=== PATIENT | female | born 1980 | race Caucasian/White ===

== ENCOUNTER → 2016-09-09 | Outpatient (CLI) | payer OTHER ==
[~2016-09-09] MED LIST: HMLI7525 SC; INSU1INJ SC; METF500T5 PO; PRENTAB26 PO
[2016-09-09 13:23] LABS: ESTIMATED AVERAGE GLUCOSE 128 mg/dl; HA1C FLAG Normal (Normal)
== END | disposition home or self-care (01) ==
LOC: C.LAB1850 11:11
PROVIDERS: ATTEND Internal Medicine Endocrinology, Diabetes & Metabolism
DX: O24.912 Unspecified diabetes mellitus in pregnancy, second trimester (principal)

== ENCOUNTER → 2016-10-12 | Outpatient (CLI) | payer OTHER | END | disposition home or self-care (01) | LOC: C.LABSPEC 15:02 | PROVIDERS: ATTEND Obstetrics & Gynecology | DX: Z34.03 Encounter for supervision of normal first pregnancy, third trimester (principal) ==

== ENCOUNTER 2016-10-21 20:07 | Inpatient (IN) | payer OTHER ==
[~2016-10-21] VITALS: Ht 165.1 cm; Wt 95.5 kg
[~2016-10-21 20:07] MED LIST changes: -HMLI7525 SC; -INSU1INJ SC
[2016-10-21] MEDS ORDERED: CALCIUM CARBONATE 500 MG CHEWABLE PO PRN (20:30)
[2016-10-21] MEDS ORDERED: BUTORPHANOL TARTRATE 1 MG/ML VIAL IV PRN (20:30)
[2016-10-21] MEDS ORDERED: DINOPROSTONE 10 MG INSERT PV ONE (20:30)
[2016-10-21 20:41] LABS: MEAN CELL VOLUME 90.9 fL (80-100); MEAN CORPUSCULAR HEMOGLOBIN 32.1 pg (25-34); MEAN CORPUSCULAR HGB CONC 35.3 g/dl (32-36); MEAN PLATELET VOLUME 10.6 fL (7.4-10.4); PLATELET COUNT 227 K/uL (130-400); RED BLOOD COUNT 3.96 M/uL (4.2-5.4); WHITE BLOOD COUNT 12.04 K/uL (4.8-10.8)
[2016-10-21] MEDS ORDERED: INSU1INJ SC (21:32)
[2016-10-21] MEDS ORDERED: HMLI7525 SC (21:32)
[2016-10-21 21:33] VITALS: Ht 165.1 cm; Wt 95.5 kg
[2016-10-21] MEDS ORDERED: INFLUENZA VIRUS QUAD VACCINE 0.5 ML SYR IM. ONE (22:45)
[2016-10-21] MEDS ORDERED: INFLUENZA ADMINISTRATION CHARGE ONE (22:45)
[2016-10-21] MEDS ORDERED: GLUCAGON FOR INJ 1 MG VIAL SQ PRN (23:00)
[2016-10-21] MEDS ORDERED: GLUCOSE 10 TABS/TUBE PO PRN (23:00)
[2016-10-21] MEDS ORDERED: GLUCOSE 40% GEL 15 GM TUBE PO PRN (23:00)
[2016-10-21] MEDS ORDERED: DEXTROSE 50% 50 ML SYR IV PRN (23:00)
[2016-10-21 23:35] LABS: BUN/CREATININE RATIO 12.4 (10-20); CALCIUM 8.5 mg/dl (8.5-10.1); CREATININE 0.67 mg/dl (0.60-1.20); MAGNESIUM 1.7 mg/dl (1.8-2.4); POTASSIUM 4.1 mmol/L (3.5-5.1)
[2016-10-22] MEDS ORDERED: MAGNESIUM SULFATE 1GM / D5W 1 GM in PREMIXED IN D5W 100 ML IV ONE (01:30)
--- NOTE | 2016-10-22 07:32 | INTERNAL MEDICINE CONSULTATION ---
DATE OF CONSULTATION: 10/22/2016 Patient seen at the request of Dr. Curry for medical management. Patient PCP is from [place]. HISTORY OF PRESENT ILLNESS: Medical history significant for DM2, on oral meds (currently on insulin for ), kidney stones, ongoing tobacco abuse. Patient currently admitted under OB service for induction of labor. PX currently 36 wks AOG . Px was seen at OB doctor's office yesterday. SBP 140s. No chest pain, no shortness of breath, no headache, nu unusual leg swelling. MEDICAL HISTORY: As above. Patient was previously on metformin until she found out that she was . She got started on home insulin preparations as per [place] [facility] [place] (Dr Herron). OPERATIONS: Urologic procedures, cholecystectomy. HOME MEDICATIONS: Include Humulin 70/30, Humalog Mix, vitamins. ALLERGIES: No known drug allergies. FAMILY HISTORY: Diabetes. PERSONAL AND SOCIAL HISTORY: few cigarettes a day. No chronic intake of alcoholic beverages. 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 REVIEW OF SYSTEMS: As per HPI, all other ROS negative. PHYSICAL EXAMINATION: VITAL SIGNS: Blood pressure was noted to 140/68, pulse 82, RR 18, temp 36.6, sats 98 on room air. GENERAL: Noted to be obese, comfortable, no respiratory distress. SKIN: normal HEENT: [place] palpebral conjunctivae. Dry mucosa. NECK: Short neck. LUNGS: Decreased breath sounds. HEART: RRR. ABDOMEN: Globular abdomen, nontender. EXTREMITIES: min LE edema noted. no tenderness NEUROLOGIC: No gross focality. LABORATORY DATA: Hemoglobin 12.7, hematocrit 36.8, white cells 12, platelets 272. Sodium 140, potassium 4.1, chloride 101, CO2 of 22, BUN 8, creatinine 0.6, glucose was noted to be 174. Hemoglobin A1c 08/2016 was 6.1. ASSESSMENT: 1. DM2 currently on home insulin px was on oral med prior to well controlled as of recent HgA1c. 2. gestational hypertension. SBP slightly elevated 3. ongoing tobacco abuse. RECOMMENDATIONS: ISS BG goal 140-180. Recommend Lantus over home mixed insulin prep for basal insulin defer eval/mx of gestational HTN to OB service Px counseled to stop smoking. DVT prophylaxis, SCDs Thank you very much for this consultation. Dr. Nur will follow the patient's progress. [facility]
[2016-10-22] MEDS ORDERED: MISOPROSTOLTAB 50 MCG TAB PO ONE ×2 (08:45→12:15)
[2016-10-22] MEDS ORDERED: PHARMACY GLYCEMIC MGMT CONSULT PRN (08:51)
[2016-10-22] MEDS: INSULIN ASPART 100 UNITS/ML 3 ML PEN SC SCH ×4 (09:05→22:11)
[2016-10-22] MEDS: INSULIN GLARGINE SOLOSTAR 100 UNITS/ML 3 ML PEN SC SCH (09:06)
--- NOTE | 2016-10-22 11:12 | Pharmacy Progress Note ---
Glycemic Control: Progress Nt Date of Service Oct 22, 2016. Scope Glycemic Pharmacist consulted by Dr Nur on 10/22/16 for glycemic control and to write orders per [facility] inpatient glycemic control protocol. Objective Accuchecks BSG (last 24hrs): Test 10/21/16 21:49 10/21/16 23:05 10/22/16 07:38 Bedside Glucose 149 mg/dl (70-90) 101 mg/dl (70-90) Random Glucose 174 mg/dl (70-99) Laboratory Data (last 24hrs) Test 10/21/16 20:31 10/21/16 23:05 White Blood Count 12.04 K/uL Anion Gap 11.0 mmol/L BUN/Creatinine Ratio 12.4 Blood Urea Nitrogen 8 mg/dl Creatinine 0.67 mg/dl Potassium Level 4.1 mmol/L Sodium Level 141 mmol/L Recent Pertinent Medications Outpatient Anti-diabetic Regimen (from JOHN Shipley) Pre-: * Metformin ER 500mg PO daily During : * 10 units of NovoLog with meals that contain carbohydrates * Humulin NPH at bedtime (dose unknown) * A1c = 6.1 % 09/09/16 The patient is currently receiving: * Basal insulin: Lantus 5 units every 24 hours * Correctional Insulin: NovoLog Correction per scale ACHS Goal Range: Low 140 mg/dL - High 180 mg/dL Correction Factor: 30 mg/dL/unit * Prandial insulin: Per carb ratio of 1 unit per 15 grams CHO consumed Assessment & Plan ASSESSMENT: * ADA & AACE recommend a goal blood sugar range 140-180 mg/dl for the majority of critically ill & non-critically ill patients. However, more stringent targets may be selected in individual cases. Specifically in the OB population euglycemia is crucial for the . Will utilize a lower goal range for Ms Werner. 10/22/16 * Pharmacy has been consult to help manage Ms Werner while she is admitted for induction of labor * History of T2DM with PO medications prior to . During , she was transitioned to a SQ insulin regimen. * Currently, BSGs are WNL at 101mg/dL this AM * Agree with Dr. Plascencia and hold mixed insulins while admitted as they can be difficult to titrate. * Insulin sensitivity tends to change during the labor and delivery process and typically the patient requires significantly less insulin during this acute setting. * Agree that we should be conservative in dosing Ms. Werner at this time and titrate regimen as data are collected. * Initially, Fabi was not ordered a carb ratio. Dr. Nur ordered a carb ratio and the order was executed in this fashion. Shortly thereafter, Dr. Plascencia removed the carb ratio. * NovoLog parameters per weight based calculator and follow PLAN FOR INPATIENT GLYCEMIC CONTROL: * Continue Lantus 5 units SQ q AM * add hold parameters to help prevent hypoglycemia * Continue NovoLog AC and HS * Goal range 80-120mg/dL * Correction factor: 45mg/dL/unit * Carb ratio: 1 unit per 15g of CHO * A1c - current * add to discharge instructions RECOMMENDATIONS FOR DISCHARGE: * will defer to OB-DATABASE MARKETING ANALYST service if SQ insulin vs metformin vs other should be continued after delivery * Please note that the plan above was derived based on current level of insulin resistance and hospital stress. These recommendations are appropriate for inpatient admission only. Plan of care upon discharge will need to be reassessed to avoid potential outpatient hypo/hyperglycemia. Thank you.
[2016-10-22] MEDS ORDERED: DINOPROSTONE 10 MG INSERT PV ONE (17:45)
--- NOTE | 2016-10-22 19:55 | Progress Note ---
Internal Med Progress Note Date of Service: Oct 22, 2016. Provider Documentation: SUBJECTIVE: Patient is seen and examined at bedside. She denies any chest pain, SOB, dizziness. Currently on monitor. Comfortably lying in bed. OBJECTIVE: Vital Signs-as noted below Physical Exam: General Appearance:Moderately built and nourished, no apparent distress Head: normocephalic, Atraumatic Eyes: normal inspection, EOMI, PERRLA Neck: supple, Trachea midline Respiratory/Chest: Normal breath sounds, CTA, No accessory muscle use Cardiovascular: S1, S2, No murmur Abdomen/GI:Soft, Non tender, + , Bowel sounds present Extremities/Musculoskelatal:normal inspection, trace edema Neurologic/Psych:AAOX3, grossly no focal neurological deficits Skin: normal color, warm Lab data as noted below. ASSESSMENT & PLAN: DM II currently on home insulin since being Patient was on Metformin prior to Last A1C: 6.1 in Aug 2016 Continue ISS, lantus BG goal 140-180. Accu checks Appreciate pharmacy glycemic management Gestational hypertension: Stable Continue to monitor Tobacco abuse: residence counselor to quit smoking : Management per Primary team DVT px: SCDs Lab Results: Results Past 24 Hours Test 10/21/16 20:31 10/21/16 21:49 10/21/16 23:05 10/22/16 07:38 Range/Units White Blood Count 12.04 4.8-10.8 K/uL Red Blood Count 3.96 4.2-5.4 M/uL Hemoglobin 12.7 12.0-16.0 g/dL Hematocrit 36.0 37-47 % Mean Corpuscular Volume 90.9 80-100 fL Mean Corpuscular Hemoglobin 32.1 25-34 pg Mean Corpuscular Hemoglobin Concent 35.3 32-36 g/dl RDW Standard Deviation 45.5 36.4-46.3 fL RDW Coefficient of Variation 13.8 11.5-14.5 % Platelet Count 227 130-400 K/uL Mean Platelet Volume 10.6 7.4-10.4 fL Bedside Glucose 149 101 70-90 mg/dl Sodium Level 141 136-145 mmol/L Potassium Level 4.1 3.5-5.1 mmol/L Chloride Level 107 98-107 mmol/L Carbon Dioxide Level 23 21-32 mmol/L Anion Gap 11.0 3-11 mmol/L Blood Urea Nitrogen 8 7-18 mg/dl Creatinine 0.67 0.60-1.20 mg/dl Est Creatinine Clear Calc Drug Dose 135.2 ml/min Estimated GFR () 132.9 Estimated GFR (Non- 114.7 BUN/Creatinine Ratio 12.4 10-20 Random Glucose 174 70-99 mg/dl Calcium Level 8.5 8.5-10.1 mg/dl Magnesium Level 1.7 1.8-2.4 mg/dl Test 10/22/16 11:50 10/22/16 17:21 Range/Units Bedside Glucose 111 125 70-90 mg/dl
[2016-10-23] MEDS: INSULIN GLARGINE SOLOSTAR 100 UNITS/ML 3 ML PEN SC SCH (08:00)
[2016-10-23] MEDS ORDERED: MISOPROSTOLTAB 50 MCG TAB PO ONE ×3 (08:00→15:15)
[2016-10-23] MEDS: INSULIN ASPART 100 UNITS/ML 3 ML PEN SC SCH ×4 (08:50→21:42)
--- NOTE | 2016-10-23 13:53 | Pharmacy Progress Note ---
Glycemic: Assessment & Plan Date of Service Oct 23, 2016. Assessment & Plan Pt undergoing induction of labor. She has minimal insulin needs so far. BSGs ranging 98 - 125 mg/dl over the past 24hrs. Will adjust BSG goal range from 80- 120 mg/dl to 110 - 140 mg/dl to avoid overcorrecting BSGs and inducing hypoglycemia. * Basal insulin: Lantus 5 units every 24 hours; Hold for BSG below 110 mg/dl * Correctional Insulin: Novolog Correction per scale ACHS Goal Range: Low 110 mg/dL - High 140 mg/dL Correction Factor: 45 mg/dL/unit * Prandial insulin: Per carb ratio of 1 unit per 15 grams CHO consumed BSGs continue to improve, no changes needed to inpatient regimen at this time. Pharmacy will continue to monitor patient daily and write orders per [facility] inpatient glycemic control protocol. Thanks. * Please note that the plan above was derived based on current level of insulin resistance and hospital stress. These recommendations are appropriate for inpatient admission only. Plan of care upon discharge will need to be reassessed to avoid potential outpatient hypo/hyperglycemia.
--- NOTE | 2016-10-23 19:03 | Progress Note ---
Internal Med Progress Note Date of Service: Oct 23, 2016. Provider Documentation: SUBJECTIVE: Patient is seen and examined at bedside. Feels well. Offers no complaints. Denies any chest pain, SOB, dizziness. OBJECTIVE: Vital Signs-as noted below Physical Exam: General Appearance:Moderately built and nourished, no apparent distress Head: normocephalic, Atraumatic Eyes: normal inspection, EOMI, PERRLA Neck: supple, Trachea midline Respiratory/Chest: Normal breath sounds, CTA, No accessory muscle use Cardiovascular: S1, S2, No murmur Abdomen/GI:Soft, Non tender, + , Bowel sounds present Extremities/Musculoskelatal:normal inspection, trace edema Neurologic/Psych:AAOX3, grossly no focal neurological deficits Skin: normal color, warm Lab data as noted below. ASSESSMENT & PLAN: DM II currently on home insulin since being Patient was on Metformin prior to Last A1C: 6.1 in Aug 2016 Continue ISS, lantus BG goal 140-180. Accu checks Appreciate pharmacy glycemic management Continue current regimen Gestational hypertension: Stable Continue to monitor Tobacco abuse: child welfare counselor to quit smoking : Management per Primary team DVT px: SCDs Lab Results: Results Past 24 Hours Test 10/22/16 22:03 10/23/16 08:23 10/23/16 12:13 10/23/16 17:11 Range/Units Bedside Glucose 99 98 101 118 70-90 mg/dl
[2016-10-23] MEDS ORDERED: LACTATED RINGER'S 1000ML 500 ML IV PRN (20:24)
[2016-10-23] MEDS ORDERED: OXYTOCIN 30 UNITS/500ML NSS IV PRN (20:30)
[2016-10-23] MEDS ORDERED: NURSING VERBAL MED ORDER ONE (21:30)
[2016-10-23] MEDS: LACTATED RINGER'S 1000ML 1,000 ML IV SCH (21:35)
[2016-10-24] VITALS (19 sets, daily range): BP systolic 113–136; BP diastolic 76–86; PULSE 85–114; TEMP 36.7–37.2; O2SAT 90–100
[2016-10-24] MEDS ORDERED: BUPIVACAINE 0.25% 30 ML VIAL ONE (00:32)
[2016-10-24] MEDS ORDERED: FENTANYL 2MCG/ML ROPIV 1.25MG/ML 100ML BAG EPI ONE (00:33)
[2016-10-24] MEDS ORDERED: FENTANYL CITRATE INJ 50 MCG/1 ML 2 ML VIAL ONE ×2 (00:33→05:32)
[2016-10-24] MEDS ORDERED: EpHEDrine SULFATE INJ 50 MG/ML AMP ONE ×2 (00:33→06:30)
[2016-10-24] MEDS ORDERED: LACTATED RINGER'S 1000ML 500 ML IV PRN ×2 (01:21→06:58)
[2016-10-24] MEDS ORDERED: NALOXONE HCL INJ 0.4 MG/1 ML VIAL/CARP IV PRN (01:30)
[2016-10-24] MEDS ORDERED: FENTANYL 2MCG/ML ROPIV 1.25MG/ML 100ML BAG EPI PRN (01:30)
[2016-10-24] MEDS ORDERED: ONDANSETRON INJ 2 MG/ML 2 ML VIAL IV PRN ×2 (01:30→07:00)
[2016-10-24] MEDS ORDERED: NALBUPHINE HCL INJ 10 MG/ML AMP IV PRN ×2 (01:30→07:00)
[2016-10-24] MEDS ORDERED: DiphenhydrAMINE HCL 50 MG/ML VIAL IV PRN ×2 (01:30→07:00)
[2016-10-24] MEDS ORDERED: EpHEDrine SULFATE INJ 50 MG/ML AMP IV PRN ×2 (01:30→07:00)
[2016-10-24] MEDS ORDERED: CEFOXITIN IV 2,000 MG in DEXTROSE 5% 50ML 50 ML IV STA (04:14)
[2016-10-24] MEDS ORDERED: CITRIC ACID/SODIUM CITRATE 15 ML UDC PO ONE (04:15)
[2016-10-24] MEDS ORDERED: OXYTOCIN INJ 10 UNITS/ML VIAL ONE (05:32)
[2016-10-24] MEDS ORDERED: ONDANSETRON INJ 2 MG/ML 2 ML VIAL ONE (05:32)
[2016-10-24] MEDS ORDERED: LIDOCAINE/EPINEPHRINE 2% 1:200,000 20 ML SDV ONE (05:32)
[2016-10-24] MEDS ORDERED: MoRPHine SULFATE PF 1 MG/ML 10 ML AMP/VIAL ONE (05:32)
--- NOTE | 2016-10-24 06:11 | HISTORY & PHYSICAL EXAMINATION ---
DATE OF ADMISSION: 10/24/2016 CHIEF COMPLAINT: Gestational diabetes, toxemia of , intrauterine at 37 weeks' and 2 days. HISTORY OF PRESENT ILLNESS: The patient is a 36-year-old, 1, para 0. is complicated by gestational diabetes, smoking and toxemia. Due date is 11/12/2016, well-dated with an early first trimester ultrasound. She has been on insulin for control of gestational diabetes. Basically, she was brought in for induction at 37 weeks' with toxemia .Toxemia was manifested by several elevated blood pressures in the office, by more than 24 hours. She also started to develop proteinuria and she gained about 5 pounds of weight in one day due to swelling. When she was brought in, she had a very unfavorable cervix. She also has a history of cryosurgery. She was given a Cervidil tape for 12 hours, that was removed. She was given 2 doses of oral Cytotec 50 mcg. She was given another Cervidil tape for another 12 hours, followed by another 2 doses of oral Cytotec. We finally got her up to a centimeter, ruptured her membranes, fluid was clear. We then augmented her with IV Pitocin and basically she had an arrest of labor for over 4 hours with failure to dilate and failure of the head to descend. She had a diagnosis of cephalopelvic disproportion with failed induction. ALLERGIES: She has no known drug allergies. PAST SURGICAL HISTORY: She has had multiple kidney stones removed. She had wisdom teeth removed. She had her gallbladder removed. MEDICAL HISTORY: She has gestational diabetes, toxemia, smoker. SOCIAL HISTORY: Smoker, 3-4 cigarettes a day since she was a teenager. No history of alcohol intake. 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 FAMILY HISTORY: Mom is 62, diabetes, high blood pressure. Father 63, in good health. One brother in good health, high blood pressure. REVIEW OF SYSTEMS: HEAD: No symptoms of frequent or severe headaches. EYES: No symptoms of blurred vision or double vision. EARS: No symptoms of frequent ear infections, difficulty hearing. PHYSICAL EXAMINATION: GENERAL: Well developed, well-nourished 36-year-old white female, alert, oriented x3 and cooperative, in no acute distress, appears stated age. EYES: Conjunctivae are pink. Sclerae white. No evidence of jaundice. EARS: Had normal light reflex bilaterally. NOSE: Had normal mucosa. Septum is midline. There were no polyps. THROAT: No erythema or evidence of infection. Teeth are in good state of repair. HEAD: Normocephalic, normal distribution of hair. NECK: Supple. Trachea midline. Thyroid is not enlarged. There is no adenopathy appreciated. Both carotids are of good intensity. CHEST: Clear to auscultation and percussion. No wheezes, rales or rhonchi appreciated. HEART: Regular rhythm. S1, S2 were normal. ABDOMEN: Revealed a term size fetus, consistent with a 37 weeks' gestational size . No CVA tenderness. MUSCULOSKELETAL: No calf tenderness. PELVIC: Revealed a vertex presentation, -2 station. Cervix 90-100% effaced, 2-3 cm dilated. IMPRESSION: History of a cholecystectomy, history of removal of wisdom teeth, history of kidney stones, gestational diabetes, toxemia and smoking. MTDD
[2016-10-24] MEDS ORDERED: BENZOCAINE 20% AER SPR 82.5 GM CAN EXT PRN (06:45)
[2016-10-24] MEDS ORDERED: LANOLIN OINT EXT PRN ×2 (06:45)
[2016-10-24] MEDS ORDERED: HYDROCORTISONE ACETATE 25 MG SUPP PR PRN (06:45)
[2016-10-24] MEDS ORDERED: SENNA 8.6 MG TAB PO PRN (06:45)
[2016-10-24] MEDS ORDERED: MAGNESIUM HYDROXIDE SUSP 30 ML UDC PO PRN (06:45)
[2016-10-24] MEDS ORDERED: SUPERCREAM 0.870 % 15GM JAR EXT PRN (06:45)
[2016-10-24] MEDS ORDERED: OXYCODONE/ACETAMINOPHEN 5-325 TAB PO PRN (06:45)
[2016-10-24] MEDS ORDERED: NALOXONE HCL INJ 0.08 MG in SYRINGE 1.8 ML IV PRN (06:58)
[2016-10-24] MEDS ORDERED: SODIUM CHLORIDE 0.9% 1000ML 1,000 ML IV PRN (06:58)
[2016-10-24] MEDS ORDERED: NALOXONE HCL 0.4 MG/1 ML VIAL/CARP IV PRN (07:00)
[2016-10-24] MEDS ORDERED: NO NARCOTICS OR SEDATIVES SCH (07:00)
[2016-10-24] MEDS ORDERED: MEPERIDINE HCL 25 MG/ML CARP IV PRN (07:00)
[2016-10-24] MEDS ORDERED: MoRPHine SULFATE 2 MG/ML CARP IV PRN (07:00)
[2016-10-24] MEDS ORDERED: MoRPHine SULFATE PF 1 MG/ML 10 ML AMP/VIAL EPI PRN (07:00)
[2016-10-24] MEDS ORDERED: PROMETHAZINE HCL INJ 25 MG in SODIUM CHLORIDE 0.9% 50ML 50 ML IV PRN (07:00)
--- NOTE | 2016-10-24 07:04 | Anesthesiology Progress Note ---
Anesthesia Post Op Note Date & Time Oct 24, 2016 at 07:02 Vital Signs Pain Intensity: 0.0 Notes Mental Status: alert / awake / arousable, participated in evaluation Pt Amnestic to Procedure: Yes Nausea / Vomiting: adequately controlled Pain: adequately controlled Airway Patency, RR, SpO2: stable & adequate BP & HR: stable & adequate Hydration State: stable & adequate Neuraxial Anesthesia: was administered, sensory block is resolving Anesthetic Complications: no major complications apparent Pt had C/S for term w/ failed induction. I placed an epidural catheter several hours prior which I used for the C/S. Her anesthetic course was uneventful. I gave morphine via the epidural catheter before pulling it at the end of the case. Post-op vitals: BP 113/51, HR 105, RR 18, SpO2 96% on RA, T 36.7.
--- NOTE | 2016-10-24 07:05 | Anesthesia Procedure Note ---
Anesthesia Epidural Removal Nt Date & Time Oct 24, 2016 at 07:04 Vital Signs Pain Intensity: 0.0 Notes Mental Status: alert / awake / arousable, participated in evaluation Nausea / Vomiting: adequately controlled Pain: adequately controlled Airway Patency, RR, SpO2: stable & adequate BP & HR: stable & adequate Hydration State: stable & adequate Neuraxial Anesthesia: was administered, sensory block is resolving Anesthetic Complications: no major complications apparent, pt satisfied with anesthetic care Epidural: removed without complications, with tip intact
[2016-10-24] MEDS ORDERED: DEXAMETHASONE SOD INJ 4 MG/ML VIAL ONE (07:07)
[2016-10-24] MEDS: LACTATED RINGER'S 1000ML 1,000 ML IV SCH (07:30)
[2016-10-24] MEDS: INSULIN GLARGINE SOLOSTAR 100 UNITS/ML 3 ML PEN SC SCH (07:33)
[2016-10-24] MEDS: INSULIN ASPART 100 UNITS/ML 3 ML PEN SC SCH ×4 (07:36→22:00)
[2016-10-24] MEDS: OXYTOCIN INJ 20 UNITS in LACTATED RINGER'S 1000ML 1,000 ML IV SCH ×2 (07:53→16:46)
[2016-10-24] MEDS ORDERED: DIPHTHERIA/TETANUS/PERTUSSIS 0.5 ML SYR/VIAL IM. ONE (09:00)
[2016-10-24] MEDS: SIMETHICONE 80 MG CHEW PO SCH ×4 (09:19→20:44)
--- NOTE | 2016-10-24 10:16 | OPERATIVE REPORT ---
DATE OF OPERATION: 10/24/2016 INDICATIONS FOR SURGERY: Toxemia of , diabetes, failed induction. POSTOPERATIVE DIAGNOSIS: Same, delivered a live male . PROCEDURE: Primary low segment section. SURGEON: Dr. Curry. YARN HANDLER: Dr. Montaño. ESTIMATED BLOOD LOSS: 500 mL. ANESTHESIA: Epidural. OPERATIVE FINDINGS AND PROCEDURE: The patient was brought to the OR table. Compression stockings were applied and a Ordoñez catheter had been inserted aseptically and connected to gravity drainage. Anesthesia was topped off and found to be adequate. Lower abdomen was painted with an alcohol based sterilizing solution, draped in usual sterile fashion. After adequacy of the anesthesia was found to be good, Pfannenstiel incision was made and carried down to the anterior fascia by sharp dissection. Hemostasis was secured by electrocauterization. Fascia was incised transversely, from underlying muscle by blunt and sharp dissection. Recti muscles were in the midline exposing the peritoneum which was carefully raised and entered. Lower uterine segment was exposed. An incision was made above the vesicouterine fold and the uterine cavity was entered bluntly with a blunt-tipped scissors. The defect was extended laterally with 2 fingers. Vectis retractor was applied to the head and with fundal pressure the head was delivered, body was delivered. The infant breathed and cried spontaneously, was attended to by the rn prior authorization, Dr. Alvarado present and scrubbed at the time of delivery. Cord was clamped and cut. Cord blood was taken. Placenta was removed manually. Uterine cavity was cleansed with a clean sponge. Ten units of Pitocin was injected into the myometrium. Myometrium was approximated in 2 layers, a deep layer of heavy chromic, which approximated the myometrial layer and created good hemostasis. Then a second layer of heavy Vicryl over that which approximated the fascial layer and then I used 3 interrupted [id number] sutures of heavy Vicryl to complete the hemostatic process. Following this, the peritoneal edges were restored with continuous 3-0 chromic. This restored the integrity of the vesicouterine fold. The pelvis was cleansed of all blood clots and debris. Packs were removed. Careful anatomical approximation of the anterior abdominal wall was performed. Peritoneum was closed with a continuous chromic gut suture. Recti muscles were approximated with interrupted [id number] suture of chromic. The fascia was closed with continuous interlocking suture of Vicryl on each side, tied in the midline. SubQ was approximated with continuous plain. The skin edges were approximated with staple clips. I attest to the content of the Intraoperative Record and any orders documented therein. Any exceptio ns are noted below.
[2016-10-24] MEDS: FERROUS SULFATE 325 MG TAB PO SCH (10:56)
[2016-10-24] MEDS: KETOROLAC TROMETHAMINE 30 MG/ML VIAL IV. PRN ×2 (10:57→21:25)
[2016-10-24] MEDS: PRENATAL VITAMIN TAB PO SCH (11:15)
[2016-10-24] MEDS: DOCUSATE SODIUM 100 MG CAP PO SCH ×2 (11:16→20:44)
--- NOTE | 2016-10-24 14:06 | Pharmacy Progress Note ---
Glycemic: Assessment & Plan Date of Service Oct 24, 2016. Assessment & Plan Pt is s/p today, POD0. BSGs ranging 106 - 150 mg/dl over the past 24hrs. BSGs are well-controlled so far this admission. She was given Decadron 8mg IV x 1 this morning, however, BSGs have not spiked in response. No changes warranted. CONTINUE: * Basal insulin: Lantus 5 units qAM; hold for BSG below 110 mg/dl * Correctional Insulin: Novolog Correction per scale ACHS Goal Range: Low 110 mg/dL - High 140 mg/dL Correction Factor: 45 mg/dL/unit * Prandial insulin: Per carb ratio of 1 unit per 15 grams CHO consumed BSGs continue to improve, no changes needed to inpatient regimen at this time. Pharmacy will continue to monitor patient daily and write orders per [facility] inpatient glycemic control protocol. Thanks. * Please note that the plan above was derived based on current level of insulin resistance and hospital stress. These recommendations are appropriate for inpatient admission only. Plan of care upon discharge will need to be reassessed to avoid potential outpatient hypo/hyperglycemia.
--- NOTE | 2016-10-24 16:26 | Progress Note ---
Internal Med Progress Note Date of Service: Oct 24, 2016. Provider Documentation: SUBJECTIVE: Patient is seen and examined at bedside. Patient had today. Feels well. Offers no complaints. Denies any chest pain, SOB, dizziness. OBJECTIVE: Vital Signs-as noted below Physical Exam: General Appearance:Moderately built and nourished, no apparent distress Head: normocephalic, Atraumatic Eyes: normal inspection, EOMI, PERRLA Neck: supple, Trachea midline Respiratory/Chest: Normal breath sounds, CTA, No accessory muscle use Cardiovascular: S1, S2, No murmur Abdomen/GI:Soft, Non tender, Bowel sounds present Extremities/Musculoskelatal:normal inspection, trace edema Neurologic/Psych:AAOX3, grossly no focal neurological deficits Skin: normal color, warm Lab data as noted below. ASSESSMENT & PLAN: DM II currently on home insulin since being Patient was on Metformin prior to Last A1C: 6.1 in Aug 2016 Continue ISS, lantus BG goal 140-180. Accu checks Appreciate pharmacy glycemic management Continue current regimen BS levels slightly elevated secondary to decadron given today Gestational hypertension: Stable Continue to monitor Tobacco abuse: certified genetic counselor to quit smoking : Management per Primary team DVT px: SCDs Vital Signs: Date Time Temp Pulse Resp B/P Pulse Ox O2 Delivery O2 Flow Rate FiO2 10/24/16 12:50 20 100 10/24/16 12:35 99 Nasal Cannula 2.0 10/24/16 12:30 90 Room Air 10/24/16 11:50 20 96 10/24/16 11:50 36.8 96 20 120/78 96 Room Air 10/24/16 10:50 20 97 10/24/16 10:50 36.7 114 20 125/84 10/24/16 09:50 20 96 10/24/16 09:50 96 Room Air 10/24/16 09:50 37.2 111 20 136/86 10/24/16 09:50 96 Room Air Lab Results: Results Past 24 Hours Test 10/23/16 17:11 10/23/16 19:10 10/23/16 21:41 10/24/16 07:26 Range/Units Bedside Glucose 118 147 106 148 70-90 mg/dl Test 10/24/16 11:43 Range/Units Bedside Glucose 150 70-90 mg/dl
[2016-10-25] VITALS: BP 111/71; PULSE 79; TEMP 36.7; O2SAT 98
[2016-10-25 00:45] VITALS: O2SAT 97
[2016-10-25] MEDS ORDERED: KETOROLAC TROMETHAMINE 30 MG/ML VIAL IV. PRN (01:00)
[2016-10-25] MEDS ORDERED: DiphenhydrAMINE HCL 50 MG/ML VIAL IV PRN (01:00)
[2016-10-25] MEDS ORDERED: DC INTRASPINAL MORPHINE ONE (01:00)
[2016-10-25] MEDS ORDERED: ONDANSETRON INJ 2 MG/ML 2 ML VIAL IV PRN (01:00)
[2016-10-25] MEDS ORDERED: MEPERIDINE HCL 50 MG/ML CARP IV PRN (01:00)
[2016-10-25] MEDS ORDERED: MEPERIDINE HCL 75 MG/ML CARP IV PRN (01:00)
[2016-10-25] MEDS ORDERED: ZOLPIDEM TARTRATE 5 MG TAB PO PRN (01:00)
[2016-10-25] MEDS: OXYTOCIN INJ 20 UNITS in LACTATED RINGER'S 1000ML 1,000 ML IV SCH (03:26)
[2016-10-25 04:30] VITALS: BP 111/77; PULSE 84; TEMP 36.7; O2SAT 98
[2016-10-25] MEDS: IBUPROFEN 600 MG TAB PO PRN ×5 (05:52→22:03)
[2016-10-25 06:01] LABS: BASO % 0.3 %; BASO ABS # 0.03 K/uL (0-0.2); COMPLETE YES; EOS % 0.5 %; HEMATOCRIT 27.9 % (37-47); IG% 0.5 %; LYMPH % 20.2 %; LYMPH ABS # 2.24 K/uL (1.2-3.4); MEAN CELL VOLUME 91.2 fL (80-100); MEAN CORPUSCULAR HEMOGLOBIN 31.4 pg (25-34); MEAN CORPUSCULAR HGB CONC 34.4 g/dl (32-36); MEAN PLATELET VOLUME 9.9 fL (7.4-10.4); MONO % 7.7 %; NEUT % 70.8 %; PLATELET COUNT 167 K/uL (130-400); RED BLOOD COUNT 3.06 M/uL (4.2-5.4); WHITE BLOOD COUNT 11.11 K/uL (4.8-10.8)
[2016-10-25 08:20] VITALS: BP 126/78; O2SAT 98
--- NOTE | 2016-10-25 09:02 | Progress Note ---
Subjective Oct 25, 2016. Subjective conversation w/ patient Ambulation: ambulating normally Voiding: no voiding problems Passing Gas: Yes Diet Tolerance: Regular Diet Lochia: Small Feeding Type: Breast Feeding Review of Systems Constitutional: + fever Objective Vital Signs Date Time Temp Pulse Resp B/P Pulse Ox O2 Delivery O2 Flow Rate FiO2 10/25/16 04:30 36.7 84 18 111/77 98 Room Air 10/25/16 00:45 18 97 10/25/16 00:00 98 Room Air 10/25/16 00:00 36.7 79 18 111/71 98 Room Air 10/24/16 23:45 18 98 10/24/16 22:45 18 98 10/24/16 21:45 18 98 10/24/16 20:45 18 96 10/24/16 19:45 36.7 85 16 123/82 96 Room Air 10/24/16 19:45 16 96 10/24/16 18:51 16 98 10/24/16 17:50 20 97 10/24/16 16:50 20 99 10/24/16 16:00 37.0 88 20 113/76 97 Room Air 10/24/16 16:00 97 Room Air 10/24/16 15:50 24 97 10/24/16 14:50 20 98 10/24/16 13:50 20 98 10/24/16 13:30 98 Room Air 10/24/16 12:50 20 100 10/24/16 12:35 99 Nasal Cannula 2.0 10/24/16 12:30 90 Room Air 10/24/16 11:50 20 96 10/24/16 11:50 36.8 96 20 120/78 96 Room Air 10/24/16 10:50 20 97 10/24/16 10:50 36.7 114 20 125/84 10/24/16 09:50 20 96 10/24/16 09:50 96 Room Air 10/24/16 09:50 37.2 111 20 136/86 10/24/16 09:50 96 Room Air Physical Exam General Appearance: WELL-APPEARING Respiratory/Chest: lungs clear Abdomen: normal bowel sounds, non tender Fundus: Firm, Non-Tender Incision Description: Clean, Dry & Intact Extremities: no pedal edema, no calf tenderness Laboratory Results Last 24 Hours Test 10/24/16 11:43 10/24/16 16:37 10/24/16 22:18 10/25/16 05:43 Bedside Glucose 150 mg/dl 154 mg/dl 74 mg/dl White Blood Count 11.11 K/uL Red Blood Count 3.06 M/uL Hemoglobin 9.6 g/dL Hematocrit 27.9 % Mean Corpuscular Volume 91.2 fL Mean Corpuscular Hemoglobin 31.4 pg Mean Corpuscular Hemoglobin Concent 34.4 g/dl Platelet Count 167 K/uL Mean Platelet Volume 9.9 fL Neutrophils (%) (Auto) 70.8 % Lymphocytes (%) (Auto) 20.2 % Monocytes (%) (Auto) 7.7 % Eosinophils (%) (Auto) 0.5 % Basophils (%) (Auto) 0.3 % Neutrophils # (Auto) 7.88 K/uL Lymphocytes # (Auto) 2.24 K/uL Monocytes # (Auto) 0.85 K/uL Eosinophils # (Auto) 0.06 K/uL Basophils # (Auto) 0.03 K/uL RDW Standard Deviation 47.0 fL RDW Coefficient of Variation 14.2 % Immature Granulocyte % (Auto) 0.5 % Immature Granulocyte # (Auto) 0.05 K/uL Test 10/25/16 08:08 Bedside Glucose 82 mg/dl Assessment and Plan Problem List Medical Problems: (1) Right flank pain Status: Acute Post-Op Day#: 1 Continue Routine Care: bandage removed
[2016-10-25] MEDS: INSULIN ASPART 100 UNITS/ML 3 ML PEN SC SCH ×4 (09:06→22:03)
[2016-10-25] MEDS: INSULIN GLARGINE SOLOSTAR 100 UNITS/ML 3 ML PEN SC SCH (09:08)
[2016-10-25] MEDS: PRENATAL VITAMIN TAB PO SCH (09:12)
[2016-10-25] MEDS: SIMETHICONE 80 MG CHEW PO SCH ×4 (09:12→19:40)
[2016-10-25] MEDS: FERROUS SULFATE 325 MG TAB PO SCH (09:12)
[2016-10-25] MEDS: DOCUSATE SODIUM 100 MG CAP PO SCH ×2 (09:12→19:40)
[2016-10-25] MEDS: OXYCODONE/ACETAMINOPHEN 5-325 TAB PO PRN ×4 (09:49→22:03)
--- NOTE | 2016-10-25 13:44 | Pharmacy Progress Note ---
Glycemic: Assessment & Plan Date of Service Oct 25, 2016. Assessment & Plan * BSGs ranging 79 - 154 mg/dl over the past 24hrs. * POD1, . Insulin sensitivity has improved s/p delivery. * Pt was given Lantus this morning despite parameter to hold dose if BSG below 110 mg/dl. Lunch BSG now 79 mg/dl. Will increase threshold for Lantus hold parameter-- see below. * Also, remove Novolog CR. Will raise BSG goal range to avoid overcorrecting of BSGs. PLAN FOR INPATIENT GLYCEMIC REGIMEN: * Basal insulin: Lantus 5 units qAM, hold for BSG below 140 mg/dl * Correctional Insulin: Novolog Correction per scale ACHS Goal Range: Low 120 mg/dL - High 160 mg/dL Correction Factor: 45 mg/dL/unit * Prandial insulin: NONE Pharmacy will continue to monitor patient daily and write orders per [facility] inpatient glycemic control protocol. Thanks. * Please note that the plan above was derived based on current level of insulin resistance and hospital stress. These recommendations are appropriate for inpatient admission only. Plan of care upon discharge will need to be reassessed to avoid potential outpatient hypo/hyperglycemia.
[2016-10-25 16:25] VITALS: BP 133/83; PULSE 73; TEMP 36.9; O2SAT 99
--- NOTE | 2016-10-25 18:21 | Progress Note ---
Internal Med Progress Note Date of Service: Oct 25, 2016. Provider Documentation: SUBJECTIVE: Patient is seen and examined at bedside. Doing well. Family at bedside. Blood surgar levels low today but patient asymptomatic. Denies any chest pain, SOB, dizziness. OBJECTIVE: Vital Signs-as noted below Physical Exam: General Appearance:Moderately built and nourished, no apparent distress Head: normocephalic, Atraumatic Eyes: normal inspection, EOMI, PERRLA Neck: supple, Trachea midline Respiratory/Chest: Normal breath sounds, CTA, No accessory muscle use Cardiovascular: S1, S2, No murmur Abdomen/GI:Soft, Non tender, Bowel sounds present Extremities/Musculoskelatal:normal inspection, trace edema Neurologic/Psych:AAOX3, grossly no focal neurological deficits Skin: normal color, warm Lab data as noted below. ASSESSMENT & PLAN: DM II currently on home insulin since being Patient was on Metformin prior to Last A1C: 6.1 in Aug 2016 Continue ISS DC Lantus BG goal 140-180. Accu checks Appreciate pharmacy glycemic management Gestational hypertension: Stable Continue to monitor Tobacco abuse: claims counsel to quit smoking : Management per Primary team DVT px: SCDs Vital Signs: Date Time Temp Pulse Resp B/P Pulse Ox O2 Delivery O2 Flow Rate FiO2 10/25/16 16:25 36.9 73 18 133/83 99 Room Air 10/25/16 16:25 99 Room Air 10/25/16 08:20 98 Room Air 10/25/16 08:20 18 126/78 98 Room Air 10/25/16 04:30 36.7 84 18 111/77 98 Room Air 10/25/16 00:45 18 97 10/25/16 00:00 98 Room Air 10/25/16 00:00 36.7 79 18 111/71 98 Room Air 10/24/16 23:45 18 98 10/24/16 22:45 18 98 10/24/16 21:45 18 98 10/24/16 20:45 18 96 10/24/16 19:45 36.7 85 16 123/82 96 Room Air 10/24/16 19:45 16 96 10/24/16 18:51 16 98 Lab Results: Results Past 24 Hours Test 10/24/16 22:18 10/25/16 05:43 10/25/16 08:08 10/25/16 12:16 Range/Units Bedside Glucose 74 82 79 70-90 mg/dl White Blood Count 11.11 4.8-10.8 K/uL Red Blood Count 3.06 4.2-5.4 M/uL Hemoglobin 9.6 12.0-16.0 g/dL Hematocrit 27.9 37-47 % Mean Corpuscular Volume 91.2 80-100 fL Mean Corpuscular Hemoglobin 31.4 25-34 pg Mean Corpuscular Hemoglobin Concent 34.4 32-36 g/dl Platelet Count 167 130-400 K/uL Mean Platelet Volume 9.9 7.4-10.4 fL Neutrophils (%) (Auto) 70.8 % Lymphocytes (%) (Auto) 20.2 % Monocytes (%) (Auto) 7.7 % Eosinophils (%) (Auto) 0.5 % Basophils (%) (Auto) 0.3 % Neutrophils # (Auto) 7.88 1.4-6.5 K/uL Lymphocytes # (Auto) 2.24 1.2-3.4 K/uL Monocytes # (Auto) 0.85 0.11-0.59 K/uL Eosinophils # (Auto) 0.06 0-0.5 K/uL Basophils # (Auto) 0.03 0-0.2 K/uL RDW Standard Deviation 47.0 36.4-46.3 fL RDW Coefficient of Variation 14.2 11.5-14.5 % Immature Granulocyte % (Auto) 0.5 % Immature Granulocyte # (Auto) 0.05 0.00-0.02 K/uL Test 10/25/16 17:10 Range/Units Bedside Glucose 80 70-90 mg/dl
[2016-10-25] MEDS ORDERED: BISACODYL 5 MG TABEC ONE (19:36)
[2016-10-25] MEDS ORDERED: BISACODYL 5 MG TABEC PO ONE (22:00)
[2016-10-26] MEDS: IBUPROFEN 600 MG TAB PO PRN ×5 (02:55→21:01)
[2016-10-26] MEDS: OXYCODONE/ACETAMINOPHEN 5-325 TAB PO PRN ×5 (02:56→21:02)
[2016-10-26] MEDS ORDERED: BISACODYL 10 MG SUPP PR PRN (06:45)
[2016-10-26 07:00] VITALS: BP 133/89; PULSE 79; TEMP 36.8; O2SAT 99
[2016-10-26] MEDS: INSULIN ASPART 100 UNITS/ML 3 ML PEN SC SCH ×4 (07:30→22:02)
[2016-10-26] MEDS: FERROUS SULFATE 325 MG TAB PO SCH (07:41)
[2016-10-26] MEDS: SIMETHICONE 80 MG CHEW PO SCH ×4 (07:41→19:50)
[2016-10-26] MEDS: DOCUSATE SODIUM 100 MG CAP PO SCH ×2 (07:41→19:50)
[2016-10-26] MEDS: PRENATAL VITAMIN TAB PO SCH (07:41)
[2016-10-26] MEDS ORDERED: INSULIN GLARGINE SOLOSTAR 100 UNITS/ML 3 ML PEN SC SCH (08:00)
--- NOTE | 2016-10-26 11:36 | Progress Note ---
Subjective Oct 26, 2016. Subjective conversation w/ patient Ambulation: ambulating normally Voiding: no voiding problems Passing Gas: Yes Diet Tolerance: Regular Diet Lochia: Small Feeding Type: Breast Feeding Review of Systems Constitutional: + fever Objective Vital Signs Date Time Temp Pulse Resp B/P Pulse Ox O2 Delivery O2 Flow Rate FiO2 10/26/16 07:30 Room Air 10/26/16 07:00 36.8 79 18 133/89 99 Room Air 10/25/16 22:38 Room Air 10/25/16 16:25 36.9 73 18 133/83 99 Room Air 10/25/16 16:25 99 Room Air Physical Exam General Appearance: WELL-APPEARING Respiratory/Chest: lungs clear Abdomen: normal bowel sounds, non tender Fundus: Firm, Non-Tender Incision Description: Clean, Dry & Intact Extremities: no pedal edema, no calf tenderness Laboratory Results Last 24 Hours Test 10/25/16 12:16 10/25/16 17:10 10/25/16 22:02 10/26/16 07:32 Bedside Glucose 79 mg/dl 80 mg/dl 86 mg/dl 122 mg/dl Assessment and Plan Problem List Medical Problems: (1) Right flank pain Status: Acute Post-Op Day#: 2
--- NOTE | 2016-10-26 14:12 | Pharmacy Progress Note ---
Glycemic: Assessment & Plan Date of Service Oct 26, 2016. Assessment & Plan * BSGs ranging 79 - 122 mg/dl over the past 24hrs. No insulin required today, 5 units total yesterday. * POD2, . Insulin sensitivity has improved s/p delivery. * Lantus discontinued today by Dr Nur PLAN FOR INPATIENT GLYCEMIC REGIMEN: * Correctional Insulin: Novolog Correction per scale ACHS Goal Range: Low 120 mg/dL - High 160 mg/dL Correction Factor: 45 mg/dL/unit * Prandial insulin: NONE BSGs continue to improve, no further changes needed to inpatient regimen at this time. Pharmacy will continue to monitor patient daily and write orders per [facility] inpatient glycemic control protocol. Thanks. DISCHARGE RECOMMENDATIONS: * I would recommend transitioning patient back to metformin, per OB-STATISTICS INTERN, . * Please note that the plan above was derived based on current level of insulin resistance and hospital stress. These recommendations are appropriate for inpatient admission only. Plan of care upon discharge will need to be reassessed to avoid potential outpatient hypo/hyperglycemia.
[2016-10-26 15:30] VITALS: BP 141/95; PULSE 80; TEMP 36.9; O2SAT 100
--- NOTE | 2016-10-26 18:52 | Progress Note ---
Subjective Date of Service: Oct 26, 2016. Subjective Pt evaluation today including: conversation w/ patient, physical exam, lab review, review of studies, review of inpatient medication list Saw/examined the patient in room 434 no problems or issues with mother or child to note today Problem List Medical Problems: (1) Right flank pain Status: Acute Review of Systems Respiratory: No shortness of breath Cardiac: No chest pain Psychiatric: No depression symptoms Heme: No abnormal bleeding/bruising Endo: No excessive thirst, No excessive urination, No fatigue Medications Current Inpatient Medications Medications (Trade) Dose Ordered Sig/Ronald Route Start Time Stop Time Status Last Admin Dose Admin Calcium Carbonate (Tums Chew Tab) 500 mg PRN PRN PO 10/21/16 20:30 11/20/16 20:29 Insulin Aspart (novoLOG ASPART) SLIDING SCALE If C... ACHS SC 10/22/16 07:30 11/21/16 07:29 10/25/16 13:46 3 UNITS Glucose (Glucose 40% Gel) 15-30 GRAMS 15 GRAMS... UD PRN PO 10/21/16 23:00 11/20/16 22:59 Glucose (Glucose Chew Tab) 4-8 Tablets 4 Tabl... UD PRN PO 10/21/16 23:00 11/20/16 22:59 Dextrose (Dextrose 50% 50ML Syringe) 25-50ML OF 50% DW IV FOR... UD PRN IV 10/21/16 23:00 11/20/16 22:59 Glucagon (Glucagon Inj) 1 mg UD PRN SQ 10/21/16 23:00 11/20/16 22:59 Miscellaneous Information (Consult Glycemic Management Pharmacy) 1 ea UD PRN N/A 10/22/16 08:51 11/21/16 08:50 Oxytocin 30 units 30 units UD PRN IV 10/23/16 20:30 11/22/16 20:29 10/23/16 21:36 30 UNITS Lactated Ringer's 500 ml @ 999 mls/hr Q31M PRN IV 10/23/16 20:24 11/22/16 20:23 Lactated Ringer's (Lr 1000ml) 1,000 ml @ 125 mls/hr Q8H IV 10/23/16 21:30 11/22/16 21:29 10/23/16 21:35 125 MLS/HR Ketorolac Tromethamine (Toradol Inj) 30 mg Q6H PRN IV. 10/25/16 01:00 10/30/16 00:59 Meperidine HCl (Demerol Inj) 50 mg Q4H PRN IV 10/25/16 01:00 11/08/16 00:59 Meperidine HCl (Demerol Inj) 75 mg Q4H PRN IV 10/25/16 01:00 11/08/16 00:59 Oxycodone/ Acetaminophen (Percocet 5-325mg Tab) 1 tab Q4H PRN PO 10/25/16 01:00 11/08/16 00:59 10/26/16 16:11 1 TAB Oxycodone/ Acetaminophen (Percocet 5-325mg Tab) 2 tab Q4H PRN PO 10/24/16 06:45 11/07/16 06:44 Future hold 10/25/16 05:53 2 TAB Ibuprofen (Motrin Tab) 600 mg Q4H PRN PO 10/24/16 06:45 11/23/16 06:44 10/26/16 16:10 600 MG Ondansetron HCl (Zofran Inj) 4 mg Q4H PRN IV 10/25/16 01:00 11/24/16 00:59 Prenat Multivit/ Water [employer] F[employer] Operator/Iron/Folic Ac ( Vitamin Tab) 1 tab DAILY PO 10/24/16 10:00 11/23/16 09:59 10/26/16 07:41 1 TAB Bisacodyl (Dulcolax Supp) 10 mg PRN PRN SD 10/26/16 06:45 11/25/16 06:44 Docusate Sodium (coLACE CAP) 100 mg BID PO 10/24/16 10:00 11/23/16 09:59 10/26/16 07:41 100 MG Magnesium Hydroxide (Milk Of Magnesia Susp) 30 ml HS PRN PO 10/24/16 06:45 11/23/16 06:44 Ferrous Sulfate (Feosol Tab) 325 mg DAILY PO 10/24/16 10:00 11/23/16 09:59 10/26/16 07:41 325 MG Cocaine HCl (Supercream 0.870% Cr) BID PRN EXT 10/24/16 06:45 11/07/16 06:44 Lanolin (Lanolin Oint) PRN PRN EXT 10/24/16 06:45 11/23/16 06:44 Hydrocortisone Acetate (Anusol Hc Supp) 25 mg BID PRN SD 10/24/16 06:45 11/23/16 06:44 Benzocaine (Dermoplast Aero Spr) 1 appln PRN PRN EXT 10/24/16 06:45 11/23/16 06:44 Zolpidem Tartrate (Ambien Tab) 5 mg HSZ PRN PO 10/25/16 01:00 11/24/16 00:59 Simethicone (Mylicon Chew Tab) 80 mg QID PO 10/24/16 09:00 11/23/16 08:59 10/26/16 16:14 80 MG Diphenhydramine HCl (Benadryl Cap) 25 mg QID PRN PO 10/25/16 01:00 11/24/16 00:59 Diphenhydramine HCl (Benadryl Inj) 25 mg QID PRN IV 10/25/16 01:00 11/24/16 00:59 Senna (Senokot Tab) 17.2 mg HS PRN PO 10/24/16 06:45 11/23/16 06:44 Objective Vital Signs Date Time Temp Pulse Resp B/P Pulse Ox O2 Delivery O2 Flow Rate FiO2 10/26/16 15:30 36.9 80 18 141/95 100 Room Air 10/26/16 15:30 100 Room Air 10/26/16 07:30 Room Air 10/26/16 07:00 36.8 79 18 133/89 99 Room Air 10/25/16 22:38 Room Air Physical Exam General Appearance: no apparent distress Respiratory/Chest: lungs clear, normal breath sounds, no respiratory distress, no accessory muscle use Cardiovascular: regular rate, rhythm, no edema, no murmur Laboratory Results Last 24 Hours Test 10/25/16 22:02 10/26/16 07:32 10/26/16 11:41 10/26/16 16:52 Bedside Glucose 86 mg/dl 122 mg/dl 80 mg/dl 105 mg/dl Assessment and Plan DM II 10/26 patient should be placed back on metformin prior to discharge no known risk of infants in women if patient is unwilling to try metformin on discharge can stop all medications will follow with endocrine after discharge should get a repeat Ha1c as outpatient / currently on home insulin since being Patient was on Metformin prior to Last A1C: 6.1 in Aug 2016 Continue ISS DC Lantus BG goal 140-180. 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
[2016-10-26 23:45] VITALS: BP 130/81; PULSE 70; TEMP 37.1; O2SAT 98
[2016-10-27] MEDS: OXYCODONE/ACETAMINOPHEN 5-325 TAB PO PRN ×2 (02:01→07:45)
[2016-10-27] MEDS: IBUPROFEN 600 MG TAB PO PRN ×2 (02:01→07:44)
[2016-10-27 07:00] VITALS: BP 129/87; PULSE 83; TEMP 36.8; O2SAT 99
[2016-10-27] MEDS: INSULIN ASPART 100 UNITS/ML 3 ML PEN SC SCH (07:30)
[2016-10-27] MEDS: DOCUSATE SODIUM 100 MG CAP PO SCH (07:40)
[2016-10-27] MEDS: FERROUS SULFATE 325 MG TAB PO SCH (07:41)
--- NOTE | 2016-10-27 07:41 | Progress Note ---
Subjective Oct 27, 2016. Subjective conversation w/ patient Ambulation: ambulating normally Voiding: no voiding problems Passing Gas: Yes Diet Tolerance: Regular Diet Lochia: Small Feeding Type: Breast Feeding Review of Systems Constitutional: + fever Objective Vital Signs Date Time Temp Pulse Resp B/P Pulse Ox O2 Delivery O2 Flow Rate FiO2 10/26/16 23:45 98 Room Air 10/26/16 23:45 37.1 70 18 130/81 98 Room Air 10/26/16 15:30 36.9 80 18 141/95 100 Room Air 10/26/16 15:30 100 Room Air Physical Exam General Appearance: WELL-APPEARING Abdomen: non tender Fundus: Firm, Non-Tender Incision Description: Clean, Dry & Intact Extremities: no pedal edema, no calf tenderness Laboratory Results Last 24 Hours Test 10/26/16 11:41 10/26/16 16:52 10/26/16 21:56 Bedside Glucose 80 mg/dl 105 mg/dl 156 mg/dl Assessment and Plan Problem List Medical Problems: (1) Right flank pain Status: Acute Post-Op Day#: 3
[2016-10-27] MEDS: PRENATAL VITAMIN TAB PO SCH (07:42)
--- NOTE | 2016-10-27 07:44 | Discharge Instructions ---
Discharge Instructions Date of Service Oct 27, 2016. Admission Reason for Admission: Induction Discharge Discharge Diagnosis / Problem: toximia diabetes failed induction Discharge Goals Goal(s): Routine recovery after Activity Recommendations Activity Limitations: as noted below ACTIVITY RECOMMENDATIONS: * Gradual return to full activity over the next 2-3 weeks. * No lifting - nothing heavier than baby over the next 2-3 weeks. * Do not engage in vigorous exercise, sexual activity or sports for 6 weeks. * Do not drive or operate any motorized equipment for 14 days. * You may shower/bathe daily. DIET: Resume Previous Diet If Breast-feeding: * Increase caloric intake by 500 calories, eat 3 well balanced meals, 2 high protein snacks a day and drink 6-8 8oz. glasses of fluid per day. BREAST CARE: If you are not breast feeding: * Wear a supportive bra 24 hours a day for one to two weeks. * Avoid stimulating your breasts and nipples as much as possible during the first few weeks after delivery. * When taking a shower, have the warm water hit your back, not breasts. * When your breasts feel full, apply ice packs. Usually three to four times a day helps ease the discomfort. * Take a mild pain medication (Tylenol / Motrin) when you are uncomfortable. If breast feeding: * Use breast milk to lubricate nipples. Lansinoh cream may be used for sore nipples. You do not need to remove cream prior to breast feeding. If using a different brand of cream, check the label for directions regarding removal of cream prior to nursing. * Wear a supportive bra. * If having problems with breasts or breast feeding, call a wireless sales consultant or your health care provider. VITAMINS: * One tablet daily. Continue taking while or until you have your check up in 6 weeks. SPECIAL CARE INSTRUCTIONS: * Vaginal rest (no tampons, douching, intercourse) until after doctor's visit. * control as discussed with doctor. * Verbalizes understanding of car seat law as reviewed with patient by nursing. * Car Seat hand-out given and reviewed with patient by nursing. * Shaken baby information reviewed with patient by nursing. Call you doctor if: * Heavy bleeding (saturating a pad an hour) or passing clots the size of your fist. Bleeding has a foul smelling odor. * A fever greater than 100.4 degrees F (38 degrees C) on two occasions four hours apart and/or chills. * Unusual pain in the pelvic or vaginal areas. Pain should improve each day . * Call the doctor for any increased redness, drainage or swelling around the incision and any pain unrelieved by prescribed pain medication. * Signs and symptoms of phlebitis(possible blood clots forming in the veins): leg pain, warm, red or swollen area on leg. * "Baby Blues" lasting longer than two weeks. If you have any questions or concerns, call your health care practitioner at [phone]. FOLLOW-UP VISIT: Follow-up visit for examination in 6 weeks. Incision check (staple removal) in 1 week. Please call office at [phone] if not already scheduled. . Current Hospital Diet Patient's current hospital diet: Diabetes Type 2 Diet Discharge Diet Recommended Diet: Regular Diet Procedures Procedures Performed: PRIMARY LOW TRANSVERSE CERVICAL CAESAREAN SECTION. Pending Studies Studies pending at discharge: no Laboratory Results Hemoglobin A1c Test 09/09/16 11:14 Range/Units Estimated Average Glucose 128 mg/dl Hemoglobin A1c 6.1 H 4.5-5.6 % Medical Emergencies . Who to Call and When: Medical Emergencies: If at any time you feel your situation is an emergency, please call 911 immediately. . Non-Emergent Contact Non-Emergency issues call your: Systems Consultant Call Non-Emergent contact if: temperature is above 100.5 . . "Provider Documentation" section prepared by Luis Curry. VTE Core Measure Inpt VTE Proph given/why not?: Treatment not indicated
[2016-10-27] MEDS: SIMETHICONE 80 MG CHEW PO SCH (07:46)
--- NOTE | 2016-10-27 08:35 | DISCHARGE SUMMARY ---
HISTORY AND HOSPITAL COURSE: Mrs. Werner was followed in our office for care and delivery. Her care was complicated by the development of toxemia of which was manifested by sustain elevations in blood pressure and also proteinuria. She also had diabetes. She was on oral medications before becoming . Her diabetes did worsen and by the time she was admitted, she was on insulin. We attempted an induction which lasted for over 48 hours during which time she got several doses of p.o. Cytotec, 2 Cervidil tapes and eventually she had an arrest of labor despite this and despite augmenting with IV Pitocin, she underwent primary low segment section and delivered a live infant in good condition. Her preoperative hemoglobin was 12.7, hematocrit 36.0. Postoperatively, hemoglobin fell to 9.6, hematocrit 27.9. Following , she did well. She remained afebrile. Her bowel sounds returned promptly. Her pain was controlled with a combination of Percocet and Motrin and she was discharged on the third postoperative day with instructions to call if she had a temperature over 100, call if she had any heavy bleeding, and return to the office for removal of zaheer. She was also given prescriptions for Percocet and Motrin for pain control.
[2016-10-27 10:45] VITALS: BP_DIAS 87; PULSE 83; TEMP 36.8
--- NOTE | 2016-10-29 06:32 | EDITING REQUIRED CODING QUERY ---
CODING QUERY To promote full compliance with coding requirements relating to patient care, provider participation is requested in all cases of customer professional uncertainty. Please assist us with the question(s) below: Coding Question(s): Dr. Curry, There is conflicting documentation about the patient's diabetes in the chart. Gestational diabetes and Type 2 diabetes are both documented. Please clarify if the patient's diabetes was: ( x ) gestational ( x ) Type 2, predating the ( ) other, please explain Physician's Response(s): Thank you for your time, JOHNIE Jarquin, JD [employer]WARDS CONSULTANT
== END 2016-10-27 11:15 | disposition home or self-care (01) | DRG 765 ==
LOC: C.LD 20:07 → C.OBG 10-24 10:07
PROVIDERS: ADMIT Obstetrics & Gynecology; ATTEND Obstetrics & Gynecology
PROC: 10D00Z1 Extraction of Products of Conception, Low, Open Approach (ICD-10-PCS; principal; 2016-10-24 04:15)
PROC: 3E0P7GC Introduction of Other Therapeutic Substance into Female Reproductive, Via Natural or Artificial Opening (ICD-10-PCS; principal; 2016-10-24 04:15)
DX: O65.4 Obstructed labor due to fetopelvic disproportion, unspecified (principal); O24.12 Pre-existing type 2 diabetes mellitus, in childbirth; E11.9 Type 2 diabetes mellitus without complications; O24.424 Gestational diabetes mellitus in childbirth, insulin controlled; O61.0 Failed medical induction of labor; O14.94 Unspecified pre-eclampsia, complicating childbirth; O62.0 Primary inadequate contractions; O32.4XX0 Maternal care for high head at term, not applicable or unspecified; O34.43 Maternal care for other abnormalities of cervix, third trimester; O99.330 Smoking (tobacco) complicating pregnancy, unspecified trimester; F17.210 Nicotine dependence, cigarettes, uncomplicated; Z82.49 Family history of ischemic heart disease and other diseases of the circulatory system; Z23 Encounter for immunization; Z37.0 Single live birth; Z3A.37 37 weeks gestation of pregnancy; Z79.4 Long term (current) use of insulin

== ENCOUNTER → 2016-12-10 | Outpatient (CLI) | payer OTHER ==
[~2016-12-10] MED LIST changes: +HYDR-5688 PO; +HYG25 PO; -METF500T5 PO; +POTA10TA30 PO
== END | disposition home or self-care (01) ==
LOC: C.PAPS 11:18
PROVIDERS: ATTEND Obstetrics & Gynecology
DX: Z39.2 Encounter for routine postpartum follow-up (principal)

== ENCOUNTER → 2016-12-28 | Outpatient (CLI) | payer OTHER | END | disposition home or self-care (01) | LOC: C.RDSM 14:50 | PROVIDERS: ATTEND Physical Medicine & Rehabilitation Sports Medicine | DX: G56.03 Carpal tunnel syndrome, bilateral upper limbs (principal) ==

== ENCOUNTER → 2017-06-06 | Outpatient (CLI) | payer OTHER ==
[~2017-06-06] MED LIST changes: -HYDR-5688 PO
--- NOTE | 2017-06-06 12:30 | DIAGNOSTIC IMAGING REPORT ---
KUB CLINICAL HISTORY: KIDNEY STONES COMPARISON STUDY: Renal ultrasound dated 07/06/2016 FINDINGS: There is no pathologic bowel dilatation. There is a 14 mm calcification overlying the left renal pelvis. This likely represents a calculus. There are surgical clips within the right upper quadrant consistent with a prior cholecystectomy. IMPRESSION: 14 mm left renal calculus Electronically signed by: Jakob Flynn M.D. 06/06/2017 12:29 PM Dictated Date/Time: 06/06/2017 12:28 PM
[2017-06-06 13:19] LABS: BLOOD UREA NITROGEN 11 mg/dl (7-18); BUN/CREATININE RATIO 14.9 (10-20); CARBON DIOXIDE 27 mmol/L (21-32); CHLORIDE 103 mmol/L (98-107); CREATININE 0.74 mg/dl (0.60-1.20); GLUCOSE 106 mg/dl (70-99); POTASSIUM 3.3 mmol/L (3.5-5.1); SODIUM 138 mmol/L (136-145)
== END | disposition home or self-care (01) ==
LOC: C.RAD 11:37
PROVIDERS: ATTEND Urology
DX: N20.0 Calculus of kidney (principal)

== ENCOUNTER → 2017-06-09 | Day surgery (SDC) | payer OTHER ==
[2017-06-02 13:42] VITALS: Ht 165.1 cm; Wt 86.4 kg
[~2017-06-09] VITALS: Ht 165.1 cm; Wt 86.4 kg
[~2017-06-09] MED LIST changes: +ATROPINE SULFATE 0.1 MG/ML 5ML SYR IV PRN; +BUPIVACAINE/EPINEPHRINE 0.5% MPF 1:200,000 30 ML VIAL ONE; +CEFAZOLIN 2000MG IV PUSH 10 ML IV SCH; +DEXAMETHASONE SOD INJ 4 MG/ML VIAL IV PRN; +EpHEDrine SULFATE INJ 50 MG/ML AMP IV PRN; +FENTANYL CITRATE INJ 50 MCG/1 ML 2 ML VIAL IV PRN; +FENTANYL CITRATE INJ 50 MCG/1 ML 2 ML VIAL ONE; +HYDR-5688 PO; +HYDROCODONE/ACETAMOPHEN 5/325MG TAB ONE; +HYDROCODONE/ACETAMOPHEN 5/325MG TAB PO PRN; +KETOROLAC TROMETHAMINE 30 MG/ML VIAL IV. PRN; +LABETALOL HCL IV 5 MG/ML 20ML IV PRN; +LACTATED RINGER'S 1000ML 1,000 ML IV SCH; +LIDOCAINE HCL 2% 2 ML VIAL (20MG/ML) ONE; +LIDOCAINE/EPINEPHRINE 1% INJ 50 ML VIAL ONE; +METOCLOPRAMIDE HCL INJ 5 MG/ML 2 ML VIAL IV PRN; +MIDAZOLAM HCL 1 MG/ML 2ML VIAL ONE; +MoRPHine SULFATE 10 MG/ML CARP/VIAL IV PRN; +ONDANSETRON INJ 2 MG/ML 2 ML VIAL IV PRN; +PHENYLEPHRINE 100MCG/ML 5ML SYR IV PRN; +PROPOFOL IV EMULSION 10 MG/ML 20 ML VIAL IV ONE; +SODIUM CHLORIDE 0.9% 1000ML 1,000 ML IV SCH
--- NOTE | 2017-06-09 10:56 | History & Physical Bridge Note ---
H&P Re-Evaluation Bridge Note: I have examined the patient, reviewed the History & Physical and in the interval since the performance of the History & Physical I have noted the following changes of clinical significance: No changes noted
--- NOTE | 2017-06-09 11:42 | Discharge Instructions-[facility]urgCtr ---
Discharge Instructions Date of Service Jun 09, 2017. Visit Reason for Visit: Left Wrist Dequervain Tendonitis Discharge Discharge Diagnosis / Problem: left wrist de Quervain's tendinitis Discharge Goals Goal(s): Decrease discomfort, Improve function, Increase independence Activity Recommendations Activity Limitations: per Instructions/Follow-up section Weightbearing Status: Left non-weightbearing Anesthesia . Post Anesthesia Instructions: If you have had General Anesthesia or IV Sedation: * Do not drive today. * Resume driving when surgeon permits. * Do not make important decisions or sign legal documents today. * Call surgeon for: 1. Temperature elevations greater than 101 degrees F. 2. Uncontrollable pain. 3. Excessive bleeding. 4. Persistent nausea and vomiting. 5. Medication intolerance (nausea, vomiting or rash). * For nausea and vomiting use only clear liquids such as: tea, soda, bouillon until nausea subsides, then gradually increase diet as tolerated. * If you have any concerns or questions, call your surgeon's office. If physician is unavailable and it is an emergency, call 911 or go to the nearest emergency room. . Instructions / Follow-Up Instructions / Follow-Up The following are instructions to follow after minor hand surgery. ACTIVITY RECOMMENDATIONS: * Minimize activity until your first visit after surgery. * No excessive walking, jogging, sports or laboring. * Return to activity is individualized. Most patients are able to return to everyday activities within 2 weeks. * Return to sports or intensive labor usually occurs at 1-2 months. * DRIVING: Driving may be resumed when you feel you have adequate pain control and use of the hand. * BATHING: You may shower or sponge-bathe immediately after surgery. The dressing will need to be covered with a plastic bag or plastic wrap until the dressing is changed on the fourth or fifth day after surgery. Once the dressing has been changed on the fourth or fifth day after surgery, you may shower and get the incision wet. * Wash with regular soap and water. * Do not bathe (submerge the incision), soak, swim or use a hot tub until the incision is completely healed over with normal skin and the doctor has given the OK to proceed. * There is no need to apply any ointments, powders or salves to your incision. * Do not apply alcohol or hydrogen peroxide directly to the incision. Diluted peroxide (50:50 mixture with sterile saline) may be used to clean dried blood from around the incision area. WORK/SCHOOL: * You may return to sedentary work or school when you are feeling comfortable. This is usually 3-7 days after surgery. * Expect increased discomfort with increased activity. Continue to elevate and ice the hand as much as possible. DIET: * Resume previous diet. MEDICATIONS: * You will have a prescription for pain medication and an anti-inflammatory medication after surgery. Use the pain pills for severe pain and the anti-inflammatory for less severe pain. * Once the pain pills have run out, try to use the anti-inflammatory. If this is not effective then contact the office for assistance. * The pain medication may cause nausea, constipation and sleepiness. You should see how they affect you before driving or similar activity. * The anti-inflammatory may cause stomach upset and bleeding. If this occurs, let your doctor know immediately . * Some patients may need blood clot prevention. This can be done with either a pill or a simple shot. Your doctor will advise you on when to begin these medications and how to take them. * Do not take aspirin or other anti-inflammatory products (i.e. Advil or Aleve ) if taking blood thinner medication. * Take a stool softener like Colace or a stimulant like Senokot to prevent constipation. SPECIAL CARE INSTRUCTIONS: ICE: * Do not apply ice directly to the skin. * Use a thin dressing or stockinet between the skin and ice bag. The dressing in place after surgery will suffice. * Apply ice for 20-30 minutes and repeat every 2-4 hours. This is especially important for the first 3-7 days after surgery. * Once the pain improves, use ice as needed. ELEVATION: * Keep your hand elevated at or above the level of your heart as much as possible. * Expect some increased discomfort and swelling if you allow your hand to hang down for any length of time. DRESSING: * Your dressing will be changed 4-5 days after surgery by the physical therapist or physician's surgeon's assistant. Leave your dressing intact until this time. * You may then change your dressing daily with clean dry gauze or Band-aids and a soft wrap or stockinet. * Always wash your hands prior to touching the incision area. * Once the stitches are removed, you may leave the wound open to air or cover with a thin bandage. * There is no need to apply any ointments, powders or salves to your incision. * Expect some bloody drainage for the first few days after surgery. * Leave the tape strips in place (if present) for 5-7 days. * The initial dressing after surgery may become soaked with blood or fluid which is normal. You may reinforce your dressing with clean, dry gauze as needed. BRACE: * Bracing is generally not needed after routine hand surgery. THERAPY: * Physical therapy may be prescribed after your surgery. * For carpal tunnel and trigger digit surgery you may begin moving your fingers and wrist immediately after surgery as tolerated. * Be careful to not overuse. * Once the sutures are removed, further range of motion exercises can be performed. * Hand incisions may be very sensitive for a few months after surgery so avoid excessive pressure on the incision. If necessary, use a padded weightlifters' glove. * You may massage the incision with skin cream to make it less sensitive and reduce scarring. * Hand strength usually returns with normal use. * If needed, squeezing a soft sponge or Play-dough may help. * Your doctor will recommend physical therapy if necessary. PROBLEMS/QUESTIONS: * If you have any problems such as severe pain, numbness, tingling or high fevers or if you have any questions, please contact the office at [phone]. * It is not uncommon to have some numbness and tingling after the surgery especially if you have had a nerve block done. This should gradually improve over the first 1- 2 days. If this persists longer or worsens then contact the office. FOLLOW UP VISIT: * If not already scheduled, please call the office at to schedule follow-up appointments for approximately 10 days, 6 weeks and 3 months after surgery. * You have a physical therapy appointment on 06/14/2017 at 11:00 AM * You have a follow-up appointment scheduled with Dr. Piper on 06/24/2017 at 10:15 AM Diet Recommendations Home Diet: no limitations, resume previous diet Procedures Procedures Performed: Left Wrist 1st Dorsal Compartment Release Pending Studies Studies pending at discharge: no Medical Emergencies . Who to Call and When: Medical Emergencies: If at any time you feel your situation is an emergency, please call 911 immediately. . Non-Emergent Contact Non-Emergency issues call your: Surgeon Call Non-Emergent contact if: temperature is above 101, your pain is not controlled, wound has increased drainage, wound has increased redness, wound has increased pain, you have any medication questions . . "Provider Documentation" section prepared by Sheryl Craft. . [place] Drug Monitoring Program Search Results: patient reviewed within database, no issues identified
[2017-06-09 11:50] VITALS: TEMP 36.6
--- NOTE | 2017-06-09 11:57 | [facility] Operative Report ---
Operative Report Operative Date Jun 09, 2017. Pre-Operative Diagnosis Left wrist dequervain tendonitis Post-Operative Diagnosis Same as preop Procedure(s) Performed Left Wrist 1st Dorsal Compartment Release Surgeon Dr. Piper Medical Office Technician Surgeon(s) Godwin Velasco MD Estimated Blood Loss 0 mL Findings Thickened first dorsal compartment with a small ganglion cyst. Tenosynovitis. Specimens None Drains none Anesthesia local with IV sedation Complication(s) None Disposition Recovery Room / PACU Implants None Indications The patient is a 37-year-old female with signs and symptoms of left wrist de Quervain's tendinitis. This is refractory to nonsurgical treatment including bracing medication and injections. Description of Procedure Informed consent was obtained. The patient was identified as Fabi Werner. She identified the operative site as the left wrist. I marked with my initials. A preoperative surgical timeout was performed. Appropriate dose of IV antibiotics was given. She was taken to the operating room and positioned supine on the hospital OR table with the left arm suspended on a hand table. A tourniquet was applied to the left upper arm the limb was prepped and draped in usual sterile fashion. Prior to starting there is no snapping or locking. There was a small palpable enlargement prop possibly ganglion cyst. 1% lidocaine with epinephrine and half percent Marcaine with epinephrine were injected for a field block. IV sedation was given. DVT prophylaxis was not indicated. The left upper extremity was prepped and draped in usual sterile fashion. The limb was exsanguinated with the Esmarch and tourniquet inflated to 225 mmHg. A longitudinal a 2 cm incision was made centered over the first dorsal compartment. Blunt dissection was performed down to the skin and subcutaneous tissues until the fascial compartment was identified. Ganglion cyst type structure a millimeter or 2 in size was noted at the palpable enlargement. The tendons were identified distally. There were 1 extensor pollicis brevis and 2 abductor pollicis longus tendons. The tendon sheath was then released over the extensor pollicis brevis tendon dorsally and completely. The septation between the EPB and APL tendons was released. There were no other septations noted. There was some tenosynovitis noted within the compartment which was debrided. The sheath was notably thickened and the ganglion cyst was excised. The tourniquet was let down after 15 minutes of inflation meticulous hemostasis was performed with electrocautery. The superficial radial nerve or its branches were not encountered during the surgical dissection. The tendons themselves appeared to be normal. The skin was then closed with 4-0 Vicryl in the dermal layer and a running 4-0 Monocryl suture subcuticular stitch. The wound was priorly irrigated. Soft sterile bulky hand dressing was applied. She was then awakened from anesthesia without difficulty and taken to the recovery room in stable condition. There were no specimens or complications. Counts are correct in the case. Blood loss was minimal. At the conclusion of the operation spoke to the patient's family informed of my findings. Detailed postoperative instructions were given. She'll be in for dressing change and a few days ago be able to do early active motion and likely have minimal need for physical therapy. I attest to the content of the Intraoperative Record and any orders documented therein. Any exceptions are noted below.
[2017-06-09 12:38] VITALS: BP 109/72; PULSE 67; O2SAT 98
--- NOTE | 2017-06-09 12:43 | Anesthesia Progress Nt - [facility] ---
Anesthesia Post Op Note Date & Time Jun 09, 2017 at 12:43 Vital Signs Pain Intensity: 6 Vital Signs Past 12 Hours Date Time Temp Pulse Resp B/P (MAP) Pulse Ox O2 Delivery O2 Flow Rate FiO2 06/09/17 12:38 67 16 109/72 (84) 98 Room Air 06/09/17 11:50 36.6 67 16 108/74 (85) 99 Room Air 06/09/17 08:01 36.6 77 22 116/84 (95) 96 Room Air Notes Mental Status: alert / awake / arousable, participated in evaluation Pt Amnestic to Procedure: Yes Nausea / Vomiting: adequately controlled Pain: adequately controlled Airway Patency, RR, SpO2: stable & adequate BP & HR: stable & adequate Hydration State: stable & adequate Anesthetic Complications: no major complications apparent
== END | disposition home or self-care (01) ==
LOC: X.SURG 07:33
PROVIDERS: ATTEND Physical Medicine & Rehabilitation Sports Medicine
DX: M65.4 Radial styloid tenosynovitis [de Quervain] (principal); E11.9 Type 2 diabetes mellitus without complications; F17.200 Nicotine dependence, unspecified, uncomplicated; Z90.49 Acquired absence of other specified parts of digestive tract; Z68.32 Body mass index [BMI] 32.0-32.9, adult; E66.9 Obesity, unspecified

== ENCOUNTER → 2017-06-30 | Outpatient (CLI) | payer OTHER ==
[~2017-06-30] MED LIST changes: -ATROPINE SULFATE 0.1 MG/ML 5ML SYR IV PRN; -BUPIVACAINE/EPINEPHRINE 0.5% MPF 1:200,000 30 ML VIAL ONE; -CEFAZOLIN 2000MG IV PUSH 10 ML IV SCH; -DEXAMETHASONE SOD INJ 4 MG/ML VIAL IV PRN; -EpHEDrine SULFATE INJ 50 MG/ML AMP IV PRN; -FENTANYL CITRATE INJ 50 MCG/1 ML 2 ML VIAL IV PRN; -FENTANYL CITRATE INJ 50 MCG/1 ML 2 ML VIAL ONE; -HYDROCODONE/ACETAMOPHEN 5/325MG TAB ONE; -HYDROCODONE/ACETAMOPHEN 5/325MG TAB PO PRN; -KETOROLAC TROMETHAMINE 30 MG/ML VIAL IV. PRN; -LABETALOL HCL IV 5 MG/ML 20ML IV PRN; -LACTATED RINGER'S 1000ML 1,000 ML IV SCH; -LIDOCAINE HCL 2% 2 ML VIAL (20MG/ML) ONE; -LIDOCAINE/EPINEPHRINE 1% INJ 50 ML VIAL ONE; -METOCLOPRAMIDE HCL INJ 5 MG/ML 2 ML VIAL IV PRN; -MIDAZOLAM HCL 1 MG/ML 2ML VIAL ONE; -MoRPHine SULFATE 10 MG/ML CARP/VIAL IV PRN; -ONDANSETRON INJ 2 MG/ML 2 ML VIAL IV PRN; -PHENYLEPHRINE 100MCG/ML 5ML SYR IV PRN; -PROPOFOL IV EMULSION 10 MG/ML 20 ML VIAL IV ONE; -SODIUM CHLORIDE 0.9% 1000ML 1,000 ML IV SCH
--- NOTE | 2017-06-30 16:25 | DIAGNOSTIC IMAGING REPORT ---
ABD/PELVIS NO IV OR ORAL CONT CLINICAL HISTORY: 37 years-old Female presenting with KIDNEY STONES, left flank pain, multiple prior lithotripsies. TECHNIQUE: Multidetector CT of the abdomen and pelvis was performed without the use of intravenous contrast. IV contrast: None. A dose lowering technique was used consistent with the principles of ALARA (as low as reasonably achievable). COMPARISON: None. CT DOSE (mGy.cm): The estimated cumulative dose is 847.30 mGy.cm. FINDINGS: Bar Useful Or Busser topogram: Cholecystectomy clips. Lung bases: Mild subtle mosaic attenuation at the lung bases could suggest small airways disease. Normal heart size. No pericardial or pleural effusion. Liver: Normal morphology. Normal density. Subtle 1.5 cm focus of hypodensity along the fissure for the ligamentum teres (series 3 image 106), which has a somewhat rounded configuration. This is indeterminate. Biliary: No gross biliary ductal dilatation allowing for noncontrast technique. Gallbladder surgically absent. Pancreas: Normal noncontrast appearance. Spleen: Normal noncontrast appearance. Adrenal glands: Normal noncontrast appearance. Kidneys and ureters: Prominent nonobstructing 13 mm calculus in the posterior medial interpolar region of the left kidney, which may represent a renal calculus versus a parenchymal calcification. Punctate calcification noted at the upper pole of the right kidney (series 3 image 137), measuring 2 mm. Hypodensity in the lateral aspect of the interpolar region of the right kidney may represent a cyst but is indeterminate. No hydronephrosis. Ureters normal and nondilated. Bladder: Incompletely evaluated secondary to underdistention. Pelvic organs: Normal noncontrast appearance of the uterus and ovaries for age. Bowel: Linear hyperdensity in the proximal transverse colon may relate to medication administration or other ingested material. Normal appendix. No bowel obstruction. Peritoneal cavity: No free fluid or intraperitoneal gas. Lymph nodes: No gross lymphadenopathy allowing for noncontrast technique. Vasculature: Normal noncontrast appearance. Abdominal wall: Normal. Musculoskeletal: Well-defined lucent lesion in the right ilium (series 3 image 346), measuring 1.3 cm, indeterminate. Degenerative changes of the spine focally at L4-5. IMPRESSION: 1. Prominent 13 mm calcification in the left kidney, which may represent a renal calculus versus parenchymal calcification. Punctate right renal calculus. Both of these are nonobstructing. No hydronephrosis or ureteral calculi. 2. No convincing evidence of acute intra-abdominal pathology. 3. Indeterminate 1.5 cm subtle hypodense region in the left hepatic lobe, possibly benign cyst or hemangioma. 4. Lucent lesion in the right ilium, indeterminate but possibly cyst or other benign etiology in the absence of known malignancy. Electronically signed by: Sherman Vasquez M.D. 06/30/2017 4:23 PM Dictated Date/Time: 06/30/2017 4:13 PM
== END | disposition home or self-care (01) ==
LOC: C.CTS 15:53
PROVIDERS: ATTEND Urology
DX: N20.0 Calculus of kidney (principal); K76.9 Liver disease, unspecified; M89.9 Disorder of bone, unspecified

== ENCOUNTER 2019-09-18 19:25 | Inpatient (IN) ==
[2019-09-18 21:31] LABS: Basophils # (auto) 0.04 K/uL (0-0.2); Basophils % (auto) 0.4 %; Eosinophils # (auto) 0.24 K/uL (0-0.5); Eosinophils % (auto) 2.2 %; Hematocrit (blood only) 45.3 % (37-47); Hemoglobin 16.3 g/dL (12.0-16.0); Immature Granulocytes # (auto) 0.02 K/uL (0.00-0.02); Immature Granulocytes % (auto) 0.2 %; Lymphocytes # (auto) 3.48 K/uL (1.2-3.4); Lymphocytes % (auto) 32.4 %; Mean Corpuscular Hemoglobin 32.5 pg (25-34); Mean Corpuscular Volume 90.2 fL (80-100); Mean Platelet Volume 10.1 fL (7.4-10.4); Monocytes # (auto) 0.75 K/uL (0.11-0.59); Neutrophils # (auto) 6.22 K/uL (1.4-6.5); Neutrophils % (auto) 57.8 %; Platelet Count 254 K/uL (130-400); RDW Coefficient of Variation 12.9 % (11.5-14.5); RDW Standard Deviation 42.3 fL (36.4-46.3); Red Blood Count 5.02 M/uL (4.2-5.4); White Blood Count 10.75 K/uL (4.8-10.8)
[2019-09-18] MEDS ORDERED: KETOROLAC TROMETHAMINE 15 MG/ML VIAL IV STA (21:42)
[2019-09-18] MEDS ORDERED: SODIUM CHLORIDE 0.9% 1000ML 1,000 ML IV ONE ×2 (21:42→22:45)
[2019-09-18] MEDS ORDERED: ONDANSETRON INJ 2 MG/ML 2 ML VIAL IV STA (21:42)
[2019-09-18 21:53] LABS: BUN Creatinine Ratio 11.2 (10-20); Calcium 9.1 mg/dl (8.5-10.1); Creatinine Clr Calc Pharmacy 90.1 ml/min; Est GFR (African American) 94.7; Est GFR (Non-African American) 81.7; Potassium 2.7 mmol/L (3.5-5.1)
[2019-09-18 21:57] LABS: Bilirubin,Total 0.6 mg/dl (0.2-1); Globulin 3.8 gm/dl (2.5-4.0); Total Protein 7.8 gm/dl (6.4-8.2)
[2019-09-18 22:03] LABS: Appearance Urine Clear (Clear); Bacteria Urine Automated Negative (Negative); Blood Urine 2+ (Negative); Color Urine Dark Yellow; Epithelial Cell Urine Auto >30 /lpf (0-5); Glucose Urine UA Negative (Negative); Ketones Urine Negative (Negative); Leukocyte Esterase Urine Negative (Negative); Nitrite Urine Negative (Negative); Protein Urine 1+ (Negative); RBC Urine Automated >30 /hpf (0-4); Specific Gravity Urine > 1.045 (1.000-1.030); Urobilinogen Urine Negative (Negative)
[2019-09-18 22:05] LABS: Bilirubin Urine Negative (Negative); Ictotest Urine Negative (Negative)
[2019-09-18] MEDS ORDERED: IOVERSOL 100ml IV PRN (22:11)
--- NOTE | 2019-09-18 22:31 | Emergency Department Note ---
History of Present Illness General Chief complaint: Abdominal Pain Stated complaint: STOMACH PAIN Time Seen by Provider: 09/18/19 21:32 Source: patient Mode of arrival: ambulatory Limitations: no limitations History of Present Illness Maximum Pain Intensity: 8 This patient is a 39-year-old female who presents to the emergency department for evaluation of abdominal pain. Patient reports that she has had upper abdo damian pain over the past 5 days which has been progressively worsening. She states that the pain feels like a squeezing sensation in her upper abdomen. She states that she has a constant, dull uncomfortable pain which becomes significantly worse a few times per hour. She rates her discomfort an 8/10. She has been slightly nauseous. She vomited once after arrival to the emergency department but has had no other vomiting. She states that she normally has diarrhea and denies any changes in her bowel movements. She has had a decreased appetite and has not had much to eat over the past 5 days. She reports a history of kidney stones and cholecystectomy. She is currently on her menstrual period. Patient states that nothing makes the pain better or worse. She has not tried any medications. She was seen by her primary care provider's office yesterday and had a negative flu test. She denies any fevers, urinary symptoms or abnormal vaginal discharge. Home Medications Home Medications Medication Instructions Recorded Confirmed Type andrés.vitshaq,nithin,sqk-bwia-ermry 1 tab PO DAILY #30 tab 02/26/19 09/18/19 Rx chlorthalidone 25 mg tablet 25 mg PO DAILY #30 tab 02/27/19 09/18/19 Rx potassium chloride 20 mEq 20 meq PO BID #60 tab 02/27/19 09/18/19 Rx tablet,extended release sumatriptan succinate 6 mg/0.5 mL 6 mg SQ PRN #0.5 ml 02/27/19 09/18/19 Rx subcutaneous pen injector loratadine 10 mg tablet 10 mg PO DAILY #30 tab 03/28/19 09/18/19 Rx ketoconazole 2 % shampoo 1 appln TOP ONCE #120 ml 04/10/19 09/18/19 Rx ketoconazole 2 % topical cream 1 appln TOP BID #60 gm 04/10/19 09/18/19 Rx fluticasone propionate 50 1 sprays INTNAS DAILY #9.9 gm 04/11/19 09/18/19 Rx mcg/actuation nasal spray,suspension cholestyramine (with sugar) 4 gram 4 gm PO DAILY #378 gm 05/08/19 09/18/19 Rx oral powder rizatriptan 10 mg tablet 10 mg PO Q2H PRN #30 tab 08/08/19 09/18/19 Rx sertraline 50 mg tablet 50 mg PO DAILY #30 tab 08/30/19 09/18/19 Rx erenumab-aooe [Aimovig 70 mg SUBCUT MONTHLY 09/18/19 09/18/19 History Autoinjector] Allergies Allergy/AdvReac Type Severity Reaction Status Date / Time No Known Allergies Allergy Verified 09/18/19 23:02 Past Med/Surg History Medical History Anxiety and depression Diabetes Hypokalemia Migraine Obesity (BMI 30.0-34.9) with 37 weeks completed gestation (Resolved) Recurrent kidney stones Tobacco abuse Toxemia of in third trimester (Resolved) Surgical History History of cholecystectomy History of kidney surgery [employer] teeth extracted Family History Family/Other Heart disease Diabetes Hypertension Cancer Mother Diabetes Hypertension Stroke Father Prostate cancer Kidney stone Grandmother (Paternal) Breast cancer Grandfather (Maternal) Stroke Aunt Lung cancer Social History Preferred Language: Liberian Communication Ability: Effective Visual Impairment: No Limitations Hearing Ability: Normal Consultants Intern Required: No Beliefs That Will Affect Care: None marital status: Single Current Living Situation: Alone Current Living Situation Comment: child and dog current occupational status: employed current occupation: Home [employer] Other Information That Helps Us Care for You: No Feels Safe at Home: Yes Safety Concerns: Feels Safe At This Time Smoking Status: Current every day smoker Tobacco Type: cigarettes ; Cigarettes Per Day: 5 ; Do You Dip or Chew Tobacco: No ; Second Hand Exposure: No ; Tobacco Cessation Education Requested by Patient: No Hx Alcohol Use: No Hx Substance Use: No Childhood Exposure to Second-Hand Smoke: No caffeine: Yes during the past year weight has: other Dental Care, Regularly: No Physical Activity Frequency: Does not Exercise Seatbelt Use: always Sunscreen Use: Yes Review of Systems A total of 10 systems reviewed and were otherwise negative Physical Exam Vital Signs Vital Signs - 24 hr 09/18/19 19:41 09/18/19 21:17 09/18/19 21:25 Temperature 36.4 C L Temperature Source Oral Pulse Rate 66 56 L Pulse Rate [Right Radial] 54 L Pulse Rate from SpO2 Sensor 56 L Pulse Rhythm [Right Radial] Regular Pulse Strength [Right Radial] Normal Respiratory Rate 20 16 18 Respiratory Effort / Characteristics Non-Labored Spontaneous Respiratory Depth Normal Respiratory Pattern Regular Blood Pressure 125/92 141/82 H Blood Pressure [Left Arm] 141/82 H Blood Pressure Mean 103 85 Blood Pressure Mean [Left Arm] 101 Blood Pressure Position Sitting Blood Pressure Position [Left Arm] Lying Pulse Oximetry 98 100 97 Oxygen Delivery Method Room Air Room Air Sepsis Recent Fever Within 48 Hours No Sepsis New/Unexplained Change in Mental Status No Sepsis Action Taken by Nursing No Action Required 09/18/19 21:29 09/18/19 21:30 09/18/19 21:37 Temperature Temperature Source Pulse Rate 59 L 55 L 56 L Pulse Rate [Right Radial] Pulse Rate from SpO2 Sensor 58 L 54 L 57 L Pulse Rhythm [Right Radial] Pulse Strength [Right Radial] Respiratory Rate 17 20 17 Respiratory Effort / Characteristics Respiratory Depth Respiratory Pattern Blood Pressure 139/81 Blood Pressure [Left Arm] Blood Pressure Mean 101 Blood Pressure Mean [Left Arm] Blood Pressure Position Blood Pressure Position [Left Arm] Pulse Oximetry 98 96 100 Oxygen Delivery Method Room Air Room Air Room Air Sepsis Recent Fever Within 48 Hours Sepsis New/Unexplained Change in Mental Status Sepsis Action Taken by Nursing 09/18/19 21:40 09/18/19 21:50 09/18/19 22:00 Temperature Temperature Source Pulse Rate 78 58 L 60 Pulse Rate [Right Radial] Pulse Rate from SpO2 Sensor 75 58 L 59 L Pulse Rhythm [Right Radial] Pulse Strength [Right Radial] Respiratory Rate 19 14 12 Respiratory Effort / Characteristics Respiratory Depth Respiratory Pattern Blood Pressure Blood Pressure [Left Arm] Blood Pressure Mean Blood Pressure Mean [Left Arm] Blood Pressure Position Blood Pressure Position [Left Arm] Pulse Oximetry 99 98 98 Oxygen Delivery Method Room Air Room Air Room Air Sepsis Recent Fever Within 48 Hours Sepsis New/Unexplained Change in Mental Status Sepsis Action Taken by Nursing 09/18/19 22:01 09/18/19 22:02 09/18/19 22:19 Temperature Temperature Source Pulse Rate 55 L 57 L 65 Pulse Rate [Right Radial] Pulse Rate from SpO2 Sensor 56 L 54 L 63 Pulse Rhythm [Right Radial] Pulse Strength [Right Radial] Respiratory Rate 15 17 21 Respiratory Effort / Characteristics Respiratory Depth Respiratory Pattern Blood Pressure 116/82 Blood Pressure [Left Arm] Blood Pressure Mean 91 Blood Pressure Mean [Left Arm] Blood Pressure Position Blood Pressure Position [Left Arm] Pulse Oximetry 97 98 98 Oxygen Delivery Method Room Air Sepsis Recent Fever Within 48 Hours Sepsis New/Unexplained Change in Mental Status Sepsis Action Taken by Nursing 09/18/19 22:20 09/18/19 22:30 09/18/19 22:31 Temperature Temperature Source Pulse Rate 63 53 L 52 L Pulse Rate [Right Radial] 61 Pulse Rate from SpO2 Sensor 65 54 L 53 L Pulse Rhythm [Right Radial] Pulse Strength [Right Radial] Respiratory Rate 18 21 22 Respiratory Effort / Characteristics Respiratory Depth Respiratory Pattern Blood Pressure 112/75 Blood Pressure [Left Arm] 116/82 Blood Pressure Mean 80 Blood Pressure Mean [Left Arm] 93 Blood Pressure Position Blood Pressure Position [Left Arm] Pulse Oximetry 100 98 97 Oxygen Delivery Method Room Air Sepsis Recent Fever Within 48 Hours Sepsis New/Unexplained Change in Mental Status Sepsis Action Taken by Nursing 09/18/19 22:40 09/18/19 22:50 09/18/19 23:00 Temperature Temperature Source Pulse Rate 61 58 L 57 L Pulse Rate [Right Radial] Pulse Rate from SpO2 Sensor 62 59 L 59 L Pulse Rhythm [Right Radial] Pulse Strength [Right Radial] Respiratory Rate 22 24 14 Respiratory Effort / Characteristics Respiratory Depth Respiratory Pattern Blood Pressure 109/70 Blood Pressure [Left Arm] Blood Pressure Mean 82 Blood Pressure Mean [Left Arm] Blood Pressure Position Blood Pressure Position [Left Arm] Pulse Oximetry 98 100 100 Oxygen Delivery Method Sepsis Recent Fever Within 48 Hours Sepsis New/Unexplained Change in Mental Status Sepsis Action Taken by Nursing 09/18/19 23:01 09/18/19 23:10 09/18/19 23:20 Temperature Temperature Source Pulse Rate 54 L 57 L 56 L Pulse Rate [Right Radial] Pulse Rate from SpO2 Sensor 54 L 58 L 55 L Pulse Rhythm [Right Radial] Pulse Strength [Right Radial] Respiratory Rate 13 18 18 Respiratory Effort / Characteristics Respiratory Depth Respiratory Pattern Blood Pressure Blood Pressure [Left Arm] Blood Pressure Mean Blood Pressure Mean [Left Arm] Blood Pressure Position Blood Pressure Position [Left Arm] Pulse Oximetry 100 98 100 Oxygen Delivery Method Sepsis Recent Fever Within 48 Hours Sepsis New/Unexplained Change in Mental Status Sepsis Action Taken by Nursing 09/18/19 23:30 09/18/19 23:40 09/18/19 23:50 Temperature Temperature Source Pulse Rate 62 57 L 52 L Pulse Rate [Right Radial] Pulse Rate from SpO2 Sensor Pulse Rhythm [Right Radial] Pulse Strength [Right Radial] Respiratory Rate 17 18 15 Respiratory Effort / Characteristics Respiratory Depth Respiratory Pattern Blood Pressure 138/75 Blood Pressure [Left Arm] Blood Pressure Mean 84 Blood Pressure Mean [Left Arm] Blood Pressure Position Blood Pressure Position [Left Arm] Pulse Oximetry Oxygen Delivery Method Sepsis Recent Fever Within 48 Hours Sepsis New/Unexplained Change in Mental Status Sepsis Action Taken by Nursing 09/19/19 00:00 09/19/19 00:01 09/19/19 00:10 Temperature Temperature Source Pulse Rate 52 L 52 L 51 L Pulse Rate [Right Radial] Pulse Rate from SpO2 Sensor 52 L 52 L 51 L Pulse Rhythm [Right Radial] Pulse Strength [Right Radial] Respiratory Rate 19 16 14 Respiratory Effort / Characteristics Respiratory Depth Respiratory Pattern Blood Pressure 117/82 Blood Pressure [Left Arm] Blood Pressure Mean 91 Blood Pressure Mean [Left Arm] Blood Pressure Position Blood Pressure Position [Left Arm] Pulse Oximetry 97 97 98 Oxygen Delivery Method Sepsis Recent Fever Within 48 Hours Sepsis New/Unexplained Change in Mental Status Sepsis Action Taken by Nursing VITALS: Vitals are noted on the nurse's note and reviewed by myself. Vital signs stable. GENERAL: This is a 39-year-old female, uncomfortable appearing but in no distress, well-developed well-nourished. SKIN: The skin was without rashes. HEAD: Normocephalic atraumatic. EARS: External auditory canals clear, tympanic membranes pearly kamara without erythema or effusion bilaterally. EYES: Pupils equal round and reactive to light and accommodation. Conjunctivae without injection, sclerae without icterus. MOUTH: Mucous membranes moist. Tonsils are not enlarged. Pharynx without erythema or exudate. NECK: Supple without nuchal rigidity. No lymphadenopathy. HEART: Regular rate and rhythm without murmurs gallops or rubs. LUNGS: Clear to auscultation bilaterally without wheezes, rales or rhonchi. ABDOMEN: Positive bowel sounds x 4. Abdomen is soft and nondistended. Moderate tenderness palpation in the epigastric region and across the upper abdomen. No guarding or rebound tenderness. EXTREMITIES: No edema of the lower extremities. NEURO: Patient was alert and oriented to person place and time. Course Consultations Consultation #1: Dr. Ferreira - general surgery Case was discussed with Dr. Ferreira, who recommended admitting the patient to the medical service. Consultation #2: Dr. Xiao - [facility] hospitalist Administered Medications Potassium Chloride/Sodium Chloride (1/2 Nss + 20meq Kcl 1000ml) 20 meq in 1,000 mls @ 125 mls/hr IV .Q8H YOON Stop: 10/19/19 01:29 Last Admin: 09/19/19 02:43 Dose: 125 mls/hr Documented by: [id number] Famotidine 20 mg/ Syringe 5 mls @ 2.5 mls/min IV BID YOON Stop: 10/19/19 01:13 Last Admin: 09/19/19 02:43 Dose: 2.5 mls/min Documented by: [id number] Morphine Sulfate (Morphine Sulfate) 2 mg IV Q3H PRN PRN Reason: Moderate Pain Stop: 10/03/19 01:13 Last Admin: 09/19/19 01:51 Dose: 2 mg Documented by: [id number] Discontinued Medications Sodium Chloride (Nss 1000ml) 1,000 mls @ 999 mls/hr IV .Q1H1M ONE Stop: 09/18/19 22:42 Last Infusion: 09/18/19 23:06 Dose: 0 mls/hr Documented by: [id number] Admin: 09/18/19 22:05 Dose: 999 mls/hr Documented by: [id number] Potassium Chloride (K Ted / Wtr) 10 meq in 100 mls @ 100 mls/hr IV ONE ONE Stop: 09/18/19 23:42 Last Infusion: 09/19/19 00:03 Dose: 0 mls/hr Documented by: [id number] Admin: 09/18/19 23:03 Dose: 100 mls/hr Documented by: [id number] Sodium Chloride (Nss 1000ml) 1,000 mls @ 999 mls/hr IV .Q1H1M ONE Stop: 09/18/19 23:45 Last Infusion: 09/19/19 00:04 Dose: 0 mls/hr Documented by: [id number] Admin: 09/18/19 23:03 Dose: 999 mls/hr Documented by: [id number] Ioversol (Optiray 320 100ml) 92 ml IV ONCE PRN PRN Reason: Interaction Checking Stop: 09/22/19 22:10 Last Admin: 09/18/19 22:12 Dose: 92 ml Documented by: [id number] Ketorolac Tromethamine (Toradol) 15 mg IV NOW STA Stop: 09/18/19 21:43 Last Admin: 09/18/19 22:05 Dose: 15 mg Documented by: [id number] Ondansetron HCl (Zofran) 4 mg IV NOW STA Stop: 09/18/19 21:43 Last Admin: 09/18/19 22:05 Dose: 4 mg Documented by: [id number] Medical Decision Making Differential Diagnosis Differential diagnosis includes appendicitis, diverticulitis, bowel obstruction, inflammatory bowel disease, renal colic, PUD, biliary pathology, pancreatitis, mesenteric ischemia, aortic pathology, infection, genitourinary, UTI, perforated viscus, among others. Home Medications Current Medication List: was personally reviewed by me Laboratory Data Attestation: I reviewed the patient's lab results. Result diagrams: 09/18/19 21:06 09/18/19 21:06 Lab Results 09/18/19 09/18/19 09/18/19 Range/Units 21:06 21:06 21:06 WBC 10.75 (4.8-10.8) K/uL RBC 5.02 (4.2-5.4) M/uL Hgb 16.3 H (12.0-16.0) g/dL Hct 45.3 (37-47) % MCV 90.2 (80-100) fL MCH 32.5 (25-34) pg MCHC 36.0 (32-36) g/dL RDW Std Deviation 42.3 (36.4-46.3) fL RDW Coeff of Hugo 12.9 (11.5-14.5) % Plt Count 254 (130-400) K/uL MPV 10.1 (7.4-10.4) fL Immature Gran % (Auto) 0.2 % Neut % (Auto) 57.8 % Lymph % (Auto) 32.4 % Ralls % (Auto) 7.0 % Eos % (Auto) 2.2 % Baso % (Auto) 0.4 % Immature Gran # (Auto) 0.02 (0.00-0.02) K/uL Neut # (Auto) 6.22 (1.4-6.5) K/uL Lymph # (Auto) 3.48 H (1.2-3.4) K/uL Ralls # (Auto) 0.75 H (0.11-0.59) K/uL Eos # (Auto) 0.24 (0-0.5) K/uL Baso # (Auto) 0.04 (0-0.2) K/uL Sodium 138 (136-145) mmol/L Potassium 2.7 L (3.5-5.1) mmol/L Chloride 103 (98-107) mmol/L Carbon Dioxide 30 (21-32) mmol/L Anion Gap 5.0 (3-11) BUN 10 (7-18) mg/dl Creatinine 0.90 (0.6-1.2) mg/dl Est Cr Clr Drug Dosing 90.1 ml/min Est GFR ( Amer) 94.7 Est GFR (Non-Af Amer) 81.7 BUN/Creatinine Ratio 11.2 (10-20) Glucose 136 H (70-99) mg/dl Calcium 9.1 (8.5-10.1) mg/dl Total Bilirubin 0.6 (0.2-1) mg/dl AST 13 L (15-37) U/L ALT 22 (12-78) U/L Alkaline Phosphatase 90 (45-117) U/L Total Protein 7.8 (6.4-8.2) gm/dl Albumin 4.0 (3.4-5.0) gm/dl Globulin 3.8 (2.5-4.0) gm/dl Albumin/Globulin Ratio 1.0 (0.9-2) Lipase 61 L (73-393) U/L Urine Color Urine Appearance (Clear) Urine pH (4.5-7.5) Ur Specific [place] (1.000-1.030) Urine Protein (Negative) Urine Glucose (UA) (Negative) Urine Ketones (Negative) Urine Blood (Negative) Urine Nitrite (Negative) Urine Bilirubin (Negative) Urine Urobilinogen (Negative) Ur Leukocyte Esterase (Negative) Urine WBC (Auto) (0-5) /hpf Urine RBC (Auto) (0-4) /hpf U Hyaline Cast (Auto) (0-5) /lpf U Epithel Cells (Auto) (0-5) /lpf Urine Bacteria (Auto) (Negative) POC Ur Test NEG (NEG) 09/18/19 Range/Units 21:06 WBC (4.8-10.8) K/uL RBC (4.2-5.4) M/uL Hgb (12.0-16.0) g/dL Hct (37-47) % MCV (80-100) fL MCH (25-34) pg MCHC (32-36) g/dL RDW Std Deviation (36.4-46.3) fL RDW Coeff of Hugo (11.5-14.5) % Plt Count (130-400) K/uL MPV (7.4-10.4) fL Immature Gran % (Auto) % Neut % (Auto) % Lymph % (Auto) % Ralls % (Auto) % Eos % (Auto) % Baso % (Auto) % Immature Gran # (Auto) (0.00-0.02) K/uL Neut # (Auto) (1.4-6.5) K/uL Lymph # (Auto) (1.2-3.4) K/uL Ralls # (Auto) (0.11-0.59) K/uL Eos # (Auto) (0-0.5) K/uL Baso # (Auto) (0-0.2) K/uL Sodium (136-145) mmol/L Potassium (3.5-5.1) mmol/L Chloride (98-107) mmol/L Carbon Dioxide (21-32) mmol/L Anion Gap (3-11) BUN (7-18) mg/dl Creatinine (0.6-1.2) mg/dl Est Cr Clr Drug Dosing ml/min Est GFR ( Amer) Est GFR (Non-Af Amer) BUN/Creatinine Ratio (10-20) Glucose (70-99) mg/dl Calcium (8.5-10.1) mg/dl Total Bilirubin (0.2-1) mg/dl AST (15-37) U/L ALT (12-78) U/L Alkaline Phosphatase (45-117) U/L Total Protein (6.4-8.2) gm/dl Albumin (3.4-5.0) gm/dl Globulin (2.5-4.0) gm/dl Albumin/Globulin Ratio (0.9-2) Lipase (73-393) U/L Urine Color Dark Yellow Urine Appearance Clear (Clear) Urine pH 6.0 (4.5-7.5) Ur Specific [place] > 1.045 H (1.000-1.030) Urine Protein 1+ H (Negative) Urine Glucose (UA) Negative (Negative) Urine Ketones Negative (Negative) Urine Blood 2+ H (Negative) Urine Nitrite Negative (Negative) Urine Bilirubin Negative (Negative) Urine Urobilinogen Negative (Negative) Ur Leukocyte Esterase Negative (Negative) Urine WBC (Auto) 1-5 (0-5) /hpf Urine RBC (Auto) >30 H (0-4) /hpf U Hyaline Cast (Auto) 10-30 H (0-5) /lpf U Epithel Cells (Auto) >30 H (0-5) /lpf Urine Bacteria (Auto) Negative (Negative) POC Ur Test (NEG) Imaging Data Attestation: I personally reviewed and interpreted this imaging study as follows: Radiologist's Impression: CT abd pelvis IV con only FINDINGS: Lower chest: The heart is normal in size and configuration, without pericardial effusion. The lung bases and pleural spaces are clear. Liver: There is a focal hypodensity adjacent the gallbladder fossa, statistically representing focal fat. There is no ductal dilatation. The portal vein and hepatic veins appear patent. Gallbladder: Surgically absent Spleen: This 2 small to characterize 6 mm splenic hypodensity. Pancreas: Unremarkable. Adrenal glands: Unremarkable. Kidneys: There is a 13 mm right renal cyst. There is a stable left renal cortical calcification. There is an 8 mm left renal cyst. There is no hydronephrosis. Bowel: There are dilated fluid-filled small bowel loops with mild mesenteric edema. The distal small bowel is of normal caliber. The findings are indicative of a small bowel obstruction. There is a small amount of ascites. There is borderline bowel wall thickening. There is no pneumatosis. There is no portal venous gas. Peritoneum: There is a small amount of free pelvic fluid. There is no free in traperitoneal air. Vasculature: The abdominal aorta is normal in course and caliber. Adenopathy: None. Pelvic viscera: The bladder, and pelvic viscera are unremarkable. Skeletal structures: There is a stable lytic focus within the right iliac bone. IMPRESSION: 1. High-grade mid small bowel obstruction, with a right lower quadrant transition zone.. There is associated mild bowel wall thickening, mesenteric edema, and low volume ascites. No portal venous gas or pneumatosis is visualized. Surgical consultation is recommended. 2. No evidence of acute appendicitis. No evidence of acute diverticulitis. Blood Pressure Blood Pressure Findings: Elevated blood pressure Blood Pressure Disposition: elevated BP felt to be situational MDM Narrative The patient is a 39-year-old female who presents today complaining of abdominal pain for the past 5 days. Patient developed vomiting after arrival here. Labs revealed no leukocytosis or anemia. Patient is hypokalemic with a potassium of 2.7. She does report a history of hypokalemia and has not been able to take her supplementation since being ill. Urinalysis was not suggestive of infection. Urine was negative. CT scan of the abdomen/pelvis was performed and reviewed by radiology and showed a small bowel obstruction with transition point in the right lower quadrant. NG tube was placed. General surgery was consulted and recommended admission [facility] the patient for further care. Impression & Plan Small bowel obstruction, Epigastric abdominal pain Discharge Plan Visit Data *Final* Discharge Date/Time: 09/19/19 00:42 Chief Complaint: Abdominal Pain Stated Complaint: STOMACH PAIN ED Provider: Kashmir Keller ED Midlevel Provider: Heather Joseph Discharge Problem: Small bowel obstruction, Epigastric abdominal pain Patient Disposition: Admitted As Inpatient Discharge Instructions Interventions: ED Discharge Assessment Last Done: 09/19/19 00:42
--- NOTE | 2019-09-18 22:34 | CT Scan Report ---
CT abd pelvis IV con only CLINICAL HISTORY: upper abdominal pain, vomiting COMPARISON STUDY: 06/30/2017 TECHNIQUE: The patient was scanned in a dynamic helical fashion during intravenous administration of 92 cc of Optiray 320 A dose lowering technique was utilized adhering to the principles of ALARA. CT DOSE: 518.34 mGy.cm FINDINGS: Lower chest: The heart is normal in size and configuration, without pericardial effusion. The lung ba ses and pleural spaces are clear. Liver: There is a focal hypodensity adjacent the gallbladder fossa, statistically representing focal fat. There is no ductal dilatation. The portal vein and hepatic veins appear patent. Gallbladder: Surgically absent Spleen: This 2 small to characterize 6 mm splenic hypodensity. Pancreas: Unremarkable. Adrenal glands: Unremarkable. Kidneys: There is a 13 mm right renal cyst. There is a stable left renal cortical calcification. Ther e is an 8 mm left renal cyst. There is no hydronephrosis. Bowel: There are dilated fluid-filled small bowel loops with mild mesenteric edema. The distal small bowel is of normal caliber. The findings are indicative of a small bowel obstruction. There is a smal l amount of ascites. There is borderline bowel wall thickening. There is no pneumatosis. There is no portal venous gas. Peritoneum: There is a small amount of free pelvic fluid. There is no free intraperitoneal air. Vasculature: The abdominal aorta is normal in course and caliber. Adenopathy: None. Pelvic viscera: The bladder, and pelvic viscera are unremarkable. Skeletal structures: There is a stable lytic focus within the right iliac bone. IMPRESSION: 1. High-grade mid small bowel obstruction, with a right lower quadrant transition zone.. There is ass ociated mild bowel wall thickening, mesenteric edema, and low volume ascites. No portal venous gas or pneumatosis is visualized. Surgical consultation is recommended. 2. No evidence of acute appendicitis. No evidence of acute diverticulitis. ACT 112: Negative or not required by law. Electronically signed by: Jakob Flynn M.D. 09/18/2019 10:33 PM
[2019-09-18] MEDS ORDERED: POTASSIUM CHLORIDE / WTR 10 MEQ/100 ML PLCT IV ONE (22:43)
--- NOTE | 2019-09-19 00:15 | History & Physical Report ---
Date of Service September 19, 2019 Assessment & Plan (1) SBO (small bowel obstruction): Admit GMF NGT low intermittent suction NPO 1/2 NS with 20KCL @125. IV Zofran and pain control. Surgery consult. DVT prophylaxis = SCDs and Lovenox. (2) Migraine: PO meds held due to NPO PRN sub-q Imitrex. (3) Anxiety and depression: Sertraline held due to NPO (4) Chronic diarrhea: Cholestyramine held due to NPO. (5) Hypokalemia: Replaced in ED. I added to IVF recheck in the am She is unable to take usual oral dosing due to NPO. History of Present Illness 39 y/o female presented to the ED with a 5 day history of progressive upper abdominal pain. She describes as a "squeezing sensation" at 8/10 intensity. She has felt nauseated and vomited X1 in the ED. She chronically has loose stools to which there has been no change. No F/C, cough, sore throat, chest pain, or body aches. She is currently on her menstrual period. Primary Care Provider: Chantel Perez DO Allergies Allergy/AdvReac Type Severity Reaction Status Date / Time No Known Allergies Allergy Verified 09/18/19 23:02 Home Medications Home Medications Medication Instructions Recorded Confirmed Type prenrachel.vits,nithin,rhk-gigh-tpeld 1 tab PO DAILY #30 tab 02/26/19 09/18/19 Rx chlorthalidone 25 mg tablet 25 mg PO DAILY #30 tab 02/27/19 09/18/19 Rx potassium chloride 20 mEq 20 meq PO BID #60 tab 02/27/19 09/18/19 Rx tablet,extended release sumatriptan succinate 6 mg/0.5 mL 6 mg SQ PRN #0.5 ml 02/27/19 09/18/19 Rx subcutaneous pen injector loratadine 10 mg tablet 10 mg PO DAILY #30 tab 03/28/19 09/18/19 Rx ketoconazole 2 % shampoo 1 appln TOP ONCE #120 ml 04/10/19 09/18/19 Rx ketoconazole 2 % topical cream 1 appln TOP BID #60 gm 04/10/19 09/18/19 Rx fluticasone propionate 50 1 sprays INTNAS DAILY #9.9 gm 04/11/19 09/18/19 Rx mcg/actuation nasal spray,suspension cholestyramine (with sugar) 4 gram 4 gm PO DAILY #378 gm 05/08/19 09/18/19 Rx oral powder rizatriptan 10 mg tablet 10 mg PO Q2H PRN #30 tab 08/08/19 09/18/19 Rx sertraline 50 mg tablet 50 mg PO DAILY #30 tab 08/30/19 09/18/19 Rx erenumab-aooe [Aimovig 70 mg SUBCUT MONTHLY 09/18/19 09/18/19 History Autoinjector] Past Med/Surg History Medical History Anxiety and depression Diabetes Migraine Obesity (BMI 30.0-34.9) with 37 weeks completed gestation (Resolved) Recurrent kidney stones Tobacco abuse Toxemia of in third trimester (Resolved) Surgical History History of cholecystectomy History of kidney surgery [place] teeth extracted Family History Family/Other Heart disease Diabetes Hypertension Cancer Mother Diabetes Hypertension Stroke Father Prostate cancer Kidney stone Grandmother (Paternal) Breast cancer Grandfather (Maternal) Stroke Aunt Lung cancer Social History Preferred Language: Syriac Communication Ability: Effective Visual Impairment: No Limitations Hearing Ability: Normal Beliefs That Will Affect Care: None marital status: Single Current Living Situation: Family Current Living Situation Comment: child and dog current occupational status: employed 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 Neck- supple, no JVD, no adenopathy, no thyromegaly. Lungs- CTA b/l no R/R/W. Heart- regular rhythm; no murmur, no gallop, no rub appreciated Abdomen- normal bowel sounds, soft, upper abdominal tenderness to palpation. Extremities- no pretibial edema, no calf tenderness; peripheral pulses intact Neuro- alert, oriented x 3; PERRL, EOMI; car sealer II-XII grossly intact, non-focal. Skin- warm & dry Results & Data Vital Signs (Past 12 Hours) Vital Signs Temp Pulse Pulse Resp BP BP Pulse Ox 09/18/19 23:30 62 17 138/75 09/18/19 23:20 56 L 18 100 09/18/19 23:10 57 L 18 98 09/18/19 23:01 54 L 13 100 09/18/19 23:00 57 L 14 109/70 100 09/18/19 22:50 58 L 24 100 09/18/19 22:40 61 22 98 09/18/19 22:31 52 L 22 97 09/18/19 22:30 53 L 21 112/75 98 09/18/19 22:20 63 61 18 116/82 100 09/18/19 22:19 65 21 98 09/18/19 22:02 57 L 17 98 09/18/19 22:01 55 L 15 116/82 97 09/18/19 22:00 60 12 98 09/18/19 21:50 58 L 14 98 09/18/19 21:40 78 19 99 09/18/19 21:37 56 L 17 139/81 100 09/18/19 21:30 55 L 20 96 09/18/19 21:29 59 L 17 98 09/18/19 21:25 54 L 18 141/82 H 97 09/18/19 21:17 56 L 16 141/82 H 100 09/18/19 19:41 36.4 C L 66 20 125/92 98 Laboratory Results Laboratory Results WBC 10.75 K/uL (4.8-10.8) 09/18/19 21:06 RBC 5.02 M/uL (4.2-5.4) 09/18/19 21:06 Hgb 16.3 g/dL (12.0-16.0) H 09/18/19 21:06 Hct 45.3 % (37-47) 09/18/19 21:06 MCV 90.2 fL (80-100) 09/18/19 21:06 MCH 32.5 pg (25-34) 09/18/19 21:06 MCHC 36.0 g/dL (32-36) 09/18/19 21:06 RDW Std Deviation 42.3 fL (36.4-46.3) 09/18/19 21:06 RDW Coeff of Hugo 12.9 % (11.5-14.5) 09/18/19 21:06 Plt Count 254 K/uL (130-400) 09/18/19 21:06 MPV 10.1 fL (7.4-10.4) 09/18/19 21:06 Immature Gran % (Auto) 0.2 % 09/18/19 21:06 Neut % (Auto) 57.8 % 09/18/19 21:06 Lymph % (Auto) 32.4 % 09/18/19 21:06 Harlan % (Auto) 7.0 % 09/18/19 21:06 Eos % (Auto) 2.2 % 09/18/19 21:06 Baso % (Auto) 0.4 % 09/18/19 21:06 Immature Gran # (Auto) 0.02 K/uL (0.00-0.02) 09/18/19 21:06 Neut # (Auto) 6.22 K/uL (1.4-6.5) 09/18/19 21:06 Lymph # (Auto) 3.48 K/uL (1.2-3.4) H 09/18/19 21:06 Harlan # (Auto) 0.75 K/uL (0.11-0.59) H 09/18/19 21:06 Eos # (Auto) 0.24 K/uL (0-0.5) 09/18/19 21:06 Baso # (Auto) 0.04 K/uL (0-0.2) 09/18/19 21:06 Sodium 138 mmol/L (136-145) 09/18/19 21:06 Potassium 2.7 mmol/L (3.5-5.1) L 09/18/19 21:06 Chloride 103 mmol/L (98-107) 09/18/19 21:06 Carbon Dioxide 30 mmol/L (21-32) 09/18/19 21:06 Anion Gap 5.0 (3-11) 09/18/19 21:06 BUN 10 mg/dl (7-18) 09/18/19 21:06 Creatinine 0.90 mg/dl (0.6-1.2) 09/18/19 21:06 Est Cr Clr Drug Dosing 90.1 ml/min 09/18/19 21:06 Est GFR ( Amer) 94.7 09/18/19 21:06 Est GFR (Non-Af Amer) 81.7 09/18/19 21:06 BUN/Creatinine Ratio 11.2 (10-20) 09/18/19 21:06 Glucose 136 mg/dl (70-99) H 09/18/19 21:06 Calcium 9.1 mg/dl (8.5-10.1) 09/18/19 21:06 Total Bilirubin 0.6 mg/dl (0.2-1) 09/18/19 21:06 AST 13 U/L (15-37) L 09/18/19 21:06 ALT 22 U/L (12-78) 09/18/19 21:06 Alkaline Phosphatase 90 U/L (45-117) 09/18/19 21:06 Total Protein 7.8 gm/dl (6.4-8.2) 09/18/19 21:06 Albumin 4.0 gm/dl (3.4-5.0) 09/18/19 21:06 Globulin 3.8 gm/dl (2.5-4.0) 09/18/19 21:06 Albumin/Globulin Ratio 1.0 (0.9-2) 09/18/19 21:06 Lipase 61 U/L (73-393) L 09/18/19 21:06 Urine Color Dark Yellow 09/18/19 21:06 Urine Appearance Clear (Clear) 09/18/19 21:06 Urine pH 6.0 (4.5-7.5) 09/18/19 21:06 Ur Specific [place] > 1.045 (1.000-1.030) H 09/18/19 21:06 Urine Protein 1+ (Negative) H 09/18/19 21:06 Urine Glucose (UA) Negative (Negative) 09/18/19 21:06 Urine Ketones Negative (Negative) 01/28/20 21:06 Urine Blood 2+ (Negative) H 09/18/19 21:06 Urine Nitrite Negative (Negative) 09/18/19 21:06 Urine Bilirubin Negative (Negative) 09/18/19 21:06 Urine Urobilinogen Negative (Negative) 09/18/19 21:06 Ur Leukocyte Esterase Negative (Negative) 09/18/19 21:06 Urine WBC (Auto) 1-5 /hpf (0-5) 09/18/19 21:06 Urine RBC (Auto) >30 /hpf (0-4) H 09/18/19 21:06 U Hyaline Cast (Auto) 10-30 /lpf (0-5) H 09/18/19 21:06 U Epithel Cells (Auto) >30 /lpf (0-5) H 09/18/19 21:06 Urine Bacteria (Auto) Negative (Negative) 09/18/19 21:06 POC Ur Test NEG (NEG) 09/18/19 21:06 Diagnostic Findings [place], [place] [phone] CT Scan Report Patient: RON DOW Date: 09/18/19 MR#: [id number]: [id number] [facility] Acct ID:[id number]: Date: 1980[facility] Zip: [place] [address] Age: 39Location: ED Sex: F Room/Bed: Att Phy:Diagnosis: STOMACH PAIN Anna Phy: Chantel Perez, DOService Date: 09/18/19 Fam Phy:Interpreting Phy: Jakob Flynn MD Admit Phy: Ordering Phy: Heather Joseph PA-C cc: ~ CT abd pelvis IV con only CLINICAL HISTORY: upper abdominal pain, vomiting COMPARISON STUDY: 06/30/2017 TECHNIQUE: The patient was scanned in a dynamic helical fashion during intravenous administration of 92 cc of Optiray 320 A dose lowering technique was utilized adhering to the principles of ALARA. CT DOSE: 518.34 mGy.cm FINDINGS: Lower chest: The heart is normal in size and configuration, without pericardial effusion. The lung bases and pleural spaces are clear. Liver: There is a focal hypodensity adjacent the gallbladder fossa, statis tically representing focal fat. There is no ductal dilatation. The portal vein and hepatic veins appear patent. Gallbladder: Surgically absent Spleen: This 2 small to characterize 6 mm splenic hypodensity. Pancreas: Unremarkable. Adrenal glands: Unremarkable. Kidneys: There is a 13 mm right renal cyst. There is a stable left renal cortical calcification. There is an 8 mm left renal cyst. There is no hydronephrosis. Bowel: There are dilated fluid-filled small bowel loops with mild mesenteric edema. The distal small bowel is of normal caliber. The findings are indicative of a small bowel obstruction. There is a small amount of ascites. There is borderline bowel wall thickening. There is no pneumatosis. There is no portal venous gas. Peritoneum: There is a small amount of free pelvic fluid. There is no free intraperitoneal air. Vasculature: The abdominal aorta is normal in course and caliber. Adenopathy: None. Pelvic viscera: The bladder, and pelvic viscera are unremarkable. Skeletal structures: There is a stable lytic focus within the right iliac bone. IMPRESSION: 1. High-grade mid small bowel obstruction, with a right lower quadrant transition zone.. There is associated mild bowel wall thickening, mesenteric edema, and low volume ascites. No portal venous gas or pneumatosis is visualized. Surgical consultation is recommended. 2. No evidence of acute appendicitis. No evidence of acute diverticulitis. ACT 112: Negative or not required by law. Electronically signed by: Jakob Flynn M.D. 09/18/2019 10:33 PM Dictated: 09/18/192221 Transcribed: 09/18/192221 Code Status & VTE Plan VTE Prophylaxis Plan VTE Prophylaxis will be ordered: Yes PG Care Time/CCT Total # of Minutes Spent Total Time Spent: 55 Total Time Spent with Patient: Total time spent is greater than 50% in coordination of care (as documented) at patient's floor/unit and/or counseling patient: Coding Level of Care Code 36207 Initial Inpt Care Lvl 3 Diagnoses SBO (small bowel obstruction) K56.609 Migraine G43.909 Migraine type: unspecified Status migrainosus presence: without status migrainosus Intractability: not intractable Anxiety and depression F41.9; F32.9 Chronic diarrhea K52.9 Hypokalemia E87.6 (1) Migraine Migraine type: unspecified Status migrainosus presence: without status migrainosus Intractability: not intractable Qualified Code(s): G43.909 - Migraine, unspecified, not intractable, without status migrainosus
[2019-09-19] MEDS ORDERED: KETOROLAC TROMETHAMINE 15 MG/ML VIAL IV PRN (01:14)
[2019-09-19] MEDS: MoRPHine SULFATE 2 MG/ML CARP IV PRN ×6 (01:51→20:25)
[2019-09-19] MEDS: SODIUM CHLOR 0.45% + 20MEQ KCL 20 MEQ/1,000 ML BAG IV SCH ×2 (02:43→10:05)
[2019-09-19] MEDS: FAMOTIDINE 20 MG in SYRINGE 3 ML IV SCH ×3 (02:43→20:36)
[2019-09-19 06:40] LABS: Hematocrit (blood only) 36.6 % (37-47); Hemoglobin 12.9 g/dL (12.0-16.0); Mean Corpuscular Hemoglobin 31.8 pg (25-34); Mean Corpuscular Hgb Conc 35.2 g/dL (32-36); Mean Corpuscular Volume 90.1 fL (80-100); Mean Platelet Volume 9.8 fL (7.4-10.4); Platelet Count 198 K/uL (130-400); RDW Standard Deviation 42.7 fL (36.4-46.3); Red Blood Count 4.06 M/uL (4.2-5.4); White Blood Count 6.51 K/uL (4.8-10.8)
[2019-09-19 07:13] LABS: BUN Creatinine Ratio 12.6 (10-20); Calcium 7.7 mg/dl (8.5-10.1); Creatinine Clr Calc Pharmacy 106.9 ml/min; Est GFR (African American) 116.1; Est GFR (Non-African American) 100.2; Potassium 3.5 mmol/L (3.5-5.1)
[2019-09-19] MEDS: ENOXAPARIN INJ 40 MG/0.4 ML SYR SQ SCH (07:38)
[2019-09-19] MEDS: FLUTICASONE PROPIONATE NA SPR 16 GM BTL SCH (07:38)
--- NOTE | 2019-09-19 08:18 | Surgery Consultation ---
Date of Consultation September 19, 2019 Assessment & Plan (1) Small bowel obstruction: transition on CT, exam is benign continue NGT, IVF as above/pt seen. recheck KUB tomorrow. may need t/c SBFT as no contrast given with CT. minimal discomfort currently. abd: soft. minimally tender. no g/r/r. minimally distended. History of Present Illness Attending Physician: Fina Kirby MD History of Present Illness 39 y/o female not feeling well for the past week, thought she had a viral syndrome. Then had more abdominal pain, nausea and vomiting. Hasn't eaten in several days. Had difficult cholecystectomy in [place], had a lot of adhesions and previous C-sections. No previous SBO. Was having diarrhea for years after parmjit, has started taking cholestyramine which has helped. Had BM yesterday. NG hasn't helped much, output minimal. Allergies Allergy/AdvReac Type Severity Reaction Status Date / Time No Known Allergies Allergy Verified 09/18/19 23:02 Home Medications Home Medications Medication Instructions Recorded Confirmed Type prenat.vits,nithin,nys-ybmx-yumbf 1 tab PO DAILY #30 tab 02/26/19 09/18/19 Rx chlorthalidone 25 mg tablet 25 mg PO DAILY #30 tab 02/27/19 09/18/19 Rx potassium chloride 20 mEq 20 meq PO BID #60 tab 02/27/19 09/18/19 Rx tablet,extended release sumatriptan succinate 6 mg/0.5 mL 6 mg SQ PRN #0.5 ml 02/27/19 09/18/19 Rx subcutaneous pen injector loratadine 10 mg tablet 10 mg PO DAILY #30 tab 03/28/19 09/18/19 Rx ketoconazole 2 % shampoo 1 appln TOP ONCE #120 ml 04/10/19 09/18/19 Rx ketoconazole 2 % topical cream 1 appln TOP BID #60 gm 04/10/19 09/18/19 Rx fluticasone propionate 50 1 sprays INTNAS DAILY #9.9 gm 04/11/19 09/18/19 Rx mcg/actuation nasal spray,suspension cholestyramine (with sugar) 4 gram 4 gm PO DAILY #378 gm 05/08/19 09/18/19 Rx oral powder rizatriptan 10 mg tablet 10 mg PO Q2H PRN #30 tab 08/08/19 09/18/19 Rx sertraline 50 mg tablet 50 mg PO DAILY #30 tab 08/30/19 09/18/19 Rx erenumab-aooe [Aimovig 70 mg SUBCUT MONTHLY 09/18/19 09/18/19 History Autoinjector] Patient History Medical History Anxiety and depression Diabetes Hypokalemia Migraine Obesity (BMI 30.0-34.9) with 37 weeks completed gestation (Resolved) Recurrent kidney stones Tobacco abuse Toxemia of in third trimester (Resolved) Surgical History History of cholecystectomy History of kidney surgery [place] teeth extracted Family History Family/Other Heart disease Diabetes Hypertension Cancer Mother Diabetes Hypertension Stroke Father Prostate cancer Kidney stone Grandmother (Paternal) Breast cancer Grandfather (Maternal) Stroke Aunt Lung cancer Social History Preferred Language: Vincentian Communication Ability: Effective Visual Impairment: No Limitations Hearing Ability: Normal Radio Interference Supervisor Required: No Beliefs That Will Affect Care: None marital status: Single Current Living Situation: Alone Current Living Situation Comment: child and dog current occupational status: employed 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 Other Information That Helps Us Care for You: No Feels Safe at Home: Yes Safety Concerns: Feels Safe At This Time Smoking Status: Current every day smoker Tobacco Type: cigarettes ; Cigarettes Per Day: 5 ; Do You Dip or Chew Tobacco: No ; Second Hand Exposure: No ; Tobacco Cessation Education Requested by Patient: No Hx Alcohol Use: No Hx Substance Use: No Childhood Exposure to Second-Hand Smoke: No caffeine: Yes during the past year weight has: other Dental Care, Regularly: No Physical Activity Frequency: Does not Exercise Seatbelt Use: always Sunscreen Use: Yes Review of Systems Constitutional: + anorexia; no fever and no chills Gastrointestinal: + abdominal pain, + nausea, + vomiting and + diarrhea/loose stools Physical Exam Constitutional: WD/WN, vitals as above Respiratory: normal respiratory effort Cardiovascular: RRR, no murmur, no edema Gastrointestinal (Abdomen): Inspection/Auscultation: + abdomen distended (minimal) Percussion/Palpation: + abdomen tender (minimal) and abdomen soft Results & Data Vital Signs (Past 12 Hours) Vital Signs Temp Pulse Pulse Resp BP BP Pulse Ox 09/19/19 07:26 36.4 C L 45 L 16 106/67 98 09/19/19 01:30 36.6 C 48 L 18 139/86 100 09/19/19 00:40 52 L 19 97 09/19/19 00:31 55 L 13 100 09/19/19 00:30 58 L 21 114/76 100 09/19/19 00:20 52 L 16 96 09/19/19 00:10 51 L 14 98 09/19/19 00:01 52 L 16 97 09/19/19 00:00 52 L 19 117/82 97 09/18/19 23:50 52 L 15 09/18/19 23:40 57 L 18 09/18/19 23:30 62 17 138/75 09/18/19 23:20 56 L 18 100 09/18/19 23:10 57 L 18 98 09/18/19 23:01 54 L 13 100 09/18/19 23:00 57 L 14 109/70 100 09/18/19 22:50 58 L 24 100 09/18/19 22:40 61 22 98 09/18/19 22:31 52 L 22 97 09/18/19 22:30 53 L 21 112/75 98 09/18/19 22:20 63 61 18 116/82 100 09/18/19 22:19 65 21 98 09/18/19 22:02 57 L 17 98 09/18/19 22:01 55 L 15 116/82 97 09/18/19 22:00 60 12 98 09/18/19 21:50 58 L 14 98 09/18/19 21:40 78 19 99 09/18/19 21:37 56 L 17 139/81 100 09/18/19 21:30 55 L 20 96 09/18/19 21:29 59 L 17 98 09/18/19 21:25 54 L 18 141/82 H 97 09/18/19 21:17 56 L 16 141/82 H 100 PG Care Time/CCT Total # of Minutes Spent Total Time Spent with Patient: Total time spent is greater than 50% in coordination of care (as documented) at patient's floor/unit and/or counseling patient: Coding Level of Care Code 59453 Inpt Consult Level 4 Diagnoses Small bowel obstruction K56.609
[2019-09-19] MEDS: D5W AND 1/2NSS + 20MEQ KCL 20 MEQ/1,000 ML BAG IV SCH ×2 (10:05→17:54)
--- NOTE | 2019-09-19 14:35 | Hospitalist Progress Note ---
Date of Service September 19, 2019 Assessment & Plan (1) SBO (small bowel obstruction): Likely secondary to adhesions from previous cholecystectomy (which she was told had a lot of adhesions intraoperatively), as well as one Having issues with functioning of NGT-repositioned twice today and working a little bit better -continue morphine prn pain -remains with soft, benign abdomen -continue NGT low intermittent suction -continue NPO -continue IV pepcid for gastric protection -continue pain control with IV morphine, toradol prn -changed IVFs to D51/2 NS with KCl 20 meq -appreciate Surgery consultation -follow BMP, Mag, Phos -if not improving, will check SBFT tomorrow -check ABd xray in AM -Surgery suggested adding IM Bentyl for intestinal spasm prn (2) Migraine: PO meds held due to NPO PRN sub-q Imitrex. (3) Anxiety and depression: Sertraline held due to NPO (4) Chronic diarrhea: Cholestyramine held due to NPO. (5) Hypokalemia: Replaced and improved -continue IVFs with KCl -follow BMP (6) DVT prophylaxis: Lovenox SQ Dispo-remain hospitalized Subjective Pt seen twice today. First time at 1400 and was having fairly significant central abd pain, no flatus. Had no relief with NGT to LIS and canister with only 50mL of light green fluid present since admission. KUB reviewed and showed kinking of NGT in prox stomach. NGT was respositioned and flushed and then had some return of brownish green fluid. Repeat KUB with tube now in central stomach and was looping around but did not appear to be kinked anymore. Pt had some relief but not a significant amount when I saw her again at 1930. Abd remained soft. SHe did vomit once before tube was repositioned as per RN. Denies chest pain, SOB, not lightheaded. Last BM 2 days ago. Discussed case with Dr. Ferreira on phone Review of Systems Review of Systems: All systems reviewed & are unremarkable except as noted in HPI & below Physical Exam Constitutional: WD/WN, vitals as above Eyes: + anicteric sclerae ENMT: external ear and nose normal, oropharynx normal (except with NGT in place) Neck: trachea midline, no thyromegaly Respiratory: normal respiratory effort, lungs clear to auscultation Cardiovascular: RRR, no murmur, no edema Chest (Breasts): Chest: normal inspection of chest Gastrointestinal (Abdomen): Inspection/Auscultation: abdomen normal to inspection and + hypoactive bowel sounds; abdomen not distended Percussion/Palpation: + abdomen tender (mid abdomen, no guarding or rebound) and abdomen soft; no guarding and abdomen not rigid Musculoskeletal: Extremities: extremities normal to inspection; no cyanosis and no clubbing Skin: no rashes, warm and dry Neurologic: moves all extremities and awake; no focal motor deficits Psychiatric: A+Ox3, euthymic affect Lymphatic: no lymphedema Results & Data Vital Signs (Past 12 Hours) Vital Signs Temp Pulse Resp BP Pulse Ox 09/19/19 07:26 36.4 C L 45 L 16 106/67 98 Laboratory Results 09/19/19 09/19/19 Range/Units 06:14 06:14 WBC 6.51 (4.8-10.8) K/uL RBC 4.06 L (4.2-5.4) M/uL Hgb 12.9 D (12.0-16.0) g/dL Hct 36.6 L (37-47) % MCV 90.1 (80-100) fL MCH 31.8 (25-34) pg MCHC 35.2 (32-36) g/dL RDW Std Deviation 42.7 (36.4-46.3) fL RDW Coeff of Hugo 13.0 (11.5-14.5) % Plt Count 198 (130-400) K/uL MPV 9.8 (7.4-10.4) fL Sodium 139 (136-145) mmol/L Potassium 3.5 D (3.5-5.1) mmol/L Chloride 109 H (98-107) mmol/L Carbon Dioxide 26 (21-32) mmol/L Anion Gap 4.0 (3-11) BUN 10 (7-18) mg/dl Creatinine 0.76 (0.6-1.2) mg/dl Est Cr Clr Drug Dosing 106.9 ml/min Est GFR ( Amer) 116.1 Est GFR (Non-Af Amer) 100.2 BUN/Creatinine Ratio 12.6 (10-20) Glucose 103 H (70-99) mg/dl Calcium 7.7 L D (8.5-10.1) mg/dl PG Care Time/CCT Total # of Minutes Spent Total Time Spent with Patient: Total time spent is greater than 50% in coordina tion of care (as documented) at patient's floor/unit and/or counseling patient: Coding Level of Care Code 96980 Subseq Hosp Care Lvl 3 Diagnoses SBO (small bowel obstruction) K56.609 Migraine G43.909 Intractability: not intractable Migraine type: unspecified Status migrainosus presence: without status migrainosus Anxiety and depression F41.9; F32.9 Chronic diarrhea K52.9 Hypokalemia E87.6 DVT prophylaxis Z29.9 (1) Migraine Intractability: not intractable Migraine type: unspecified Status migrainosus presence: without status migrainosus Qualified Code(s): G43.909 - Migraine, unspecified, not intractable, without status migrainosus
--- NOTE | 2019-09-19 15:05 | XRay Report ---
KUB HISTORY: Small bowel obstruction SBO,assess NGT position COMPARISON: CT abdomen and pelvis 09/18/2019, KUB 06/06/2017 FINDINGS: Status post placement of an enteric tube. The distal tip is mildly and projects over the ex pected location of the proximal gastric lumen. Dilated loops of small bowel measure up to 4.3 cm will sversely. Unchanged 1.3 cm calcification of the left kidney. Cholecystectomy. No renal calculi. No u reteral calculi. No pneumoperitoneum or pneumatosis. No fracture. IMPRESSION: 1. Status post placement of an enteric tube. There is mild kinking of the distal tip which projects o [place] the expected location of the proximal gastric lumen. 2. Persistent small bowel obstruction. ACT 112: Negative or not required by law. The above report was generated using voice recognition software. It may contain grammatical, syntax o r spelling errors. Electronically signed by: Mitchel Carrion M.D. 09/19/2019 3:04 PM
--- NOTE | 2019-09-19 17:48 | XRay Report ---
KUB HISTORY: SBO,recheck NGT position COMPARISON: KUB 09/19/2019. FINDINGS: A nasogastric tube is curled within the body of the stomach. A few mildly dilated gas-fille d loops of small bowel are again noted within the abdomen consistent with a small bowel obstruction. No renal calculi. No ureteral calculi. No pneumoperitoneum or pneumatosis. IMPRESSION: The nasogastric tube terminates in the body of the stomach. ACT 112: Negative or not required by law. Electronically signed by: Matias Jessica M.D. 09/19/2019 5:46 PM
--- NOTE | 2019-09-19 17:49 | Electrocardiogram Report ---
Test Reason : Blood Pressure : / mmHG Vent. Rate : 058 BPM Atrial Rate : 058 BPM P-R Int : 124 ms QRS Dur : 088 ms QT Int : 488 ms P-R-T Axes : 024 046 033 degrees QTc Int : 479 ms Sinus bradycardia Otherwise normal ECG No previous ECGs available Confirmed by Jamar Hilton ([id number]) on 09/19/2019 5:49:17 PM Referred By: Chantel Perez Confirmed By:Gilbert Hilton
[2019-09-19] MEDS: ONDANSETRON INJ 2 MG/ML 2 ML VIAL IV PRN (20:25)
[2019-09-19] MEDS ORDERED: DICYCLOMINE HCL 10 MG/ML 2 ML AMP/VIAL IM PRN (23:58)
[2019-09-20] MEDS: MoRPHine SULFATE 2 MG/ML CARP IV PRN (01:04)
[2019-09-20] MEDS: D5W AND 1/2NSS + 20MEQ KCL 20 MEQ/1,000 ML BAG IV SCH ×3 (01:04→16:41)
[2019-09-20] MEDS: MoRPHine SULFATE 4 MG/ML 1 ML CARP\\VIAL IV PRN ×7 (02:56→23:58)
[2019-09-20 05:19] LABS: Hematocrit (blood only) 39.6 % (37-47); Hemoglobin 13.8 g/dL (12.0-16.0); Mean Corpuscular Hemoglobin 31.9 pg (25-34); Mean Corpuscular Hgb Conc 34.8 g/dL (32-36); Mean Corpuscular Volume 91.5 fL (80-100); Mean Platelet Volume 10.3 fL (7.4-10.4); Platelet Count 222 K/uL (130-400); RDW Coefficient of Variation 12.7 % (11.5-14.5); Red Blood Count 4.33 M/uL (4.2-5.4); White Blood Count 6.95 K/uL (4.8-10.8)
[2019-09-20 05:53] LABS: BUN Creatinine Ratio 6.9 (10-20); Calcium 7.9 mg/dl (8.5-10.1); Creatinine Clr Calc Pharmacy 123.1 ml/min; Est GFR (African American) 130.8; Est GFR (Non-African American) 112.9; Magnesium 1.8 mg/dl (1.8-2.4)
[2019-09-20] MEDS: FLUTICASONE PROPIONATE NA SPR 16 GM BTL SCH (07:32)
[2019-09-20] MEDS: ENOXAPARIN INJ 40 MG/0.4 ML SYR SQ SCH (07:44)
--- NOTE | 2019-09-20 07:58 | Surgery Progress Note ---
Date of Service September 20, 2019 Assessment & Plan (1) Small bowel obstruction: Will recheck KUB this AM NGT with minimal output, 260cc documented. Will continue NGT for now Pending progress may consider SBFT Continue conservative mngmt with bowel rest and IVF as above. not much change. still with some upper abdominal discomfort. no flatus or bm. will order SBFT today. keep NGT. pain reasonably controlled currently. Subjective Patient says she slept well overnight after getting some pain medication. She denies passing flatus/BM's or nausea. She says her abdominal pain remains present and is about the same as when she came in. Physical Exam Physical Exam: awake/alert Gastrointestinal (Abdomen): Inspection/Auscultation: abdomen not distended Percussion/Palpation: + abdomen tender (mild ttp in epigastric region) and abdomen soft Results & Data Vital Signs (Past 12 Hours) Vital Signs Temp Pulse Resp BP BP Pulse Ox 09/20/19 07:27 36.8 C 57 L 16 105/76 97 09/19/19 23:00 36.8 C 50 L 16 134/85 96 PG Care Time/CCT Total # of Minutes Spent Total Time Spent with Patient: Total time spent is greater than 50% in coordination of care (as documented) at patient's floor/unit and/or counseling patient: Coding Level of Care Code 26301 Subseq Hosp Care Lvl 1 Diagnoses Small bowel obstruction K56.609
--- NOTE | 2019-09-20 08:16 | XRay Report ---
XR KUB/Abdomen 1 view CLINICAL HISTORY: SBO dyspnea. Pain. COMPARISON STUDY: 09/19/2019 FINDINGS: Slight increase in dilatation of a loop of small bowel left upper quadrant. Nasogastric tub e within the gastric fundus. Slight increasing gaseous within the colon. IMPRESSION: 1. Slight increase in gas within colon. 2. Slight increase in distention of a loop of small bowel left upper quadrant ACT 112: Negative or not required by law. The above report was generated using voice recognition software. It may contain grammatical, syntax or spelling errors. Electronically signed by: Son Case M.D. 09/20/2019 8:15 AM
[2019-09-20] MEDS: FAMOTIDINE 20 MG in SYRINGE 3 ML IV SCH ×2 (08:48→20:42)
[2019-09-20] MEDS ORDERED: POTASSIUM PHOS 3 MMOL/1 ML INFUSION IV STA (11:01)
[2019-09-20] MEDS ORDERED: MAGNESIUM SULFATE / D5W 1 GM/100 ML BAG IV ONE (11:02)
[2019-09-20] MEDS ORDERED: POTASSIUM PHOSPHATE 21 MMOL in SODIUM CHLORIDE 0.9% 500 ML IV ONE (11:15)
--- NOTE | 2019-09-20 11:41 | Fluoroscopy Report ---
FL small bowel study CLINICAL HISTORY: please give contrast via NGT. evaluate for SBO COMPARISON STUDY: None FLUOROSCOPY TIME: None NUMBER OF FLUOROSCOPIC IMAGES: 3 FINDINGS: Examination is attempted via the patient's nasogastric tube. The patient unfortunately was unable to tolerate the exam. The injected barium moderate mixture was v omited. Several mildly distended loops of proximal small bowel. Further information is not possible. IMPRESSION: Nondiagnostic exam as the patient could not tolerate contrast. Patient vomited continuous ly through the procedure following contrast administration. ACT 112: Negative or not required by law. The above report was generated using voice recognition software. It may contain grammatical, syntax or spelling errors. Electronically signed by: Son Case M.D. 09/20/2019 11:32 AM
[2019-09-20] MEDS: ONDANSETRON INJ 2 MG/ML 2 ML VIAL IV PRN ×2 (12:28→23:56)
--- NOTE | 2019-09-20 14:17 | Hospitalist Progress Note ---
Date of Service September 20, 2019 Assessment & Plan (1) SBO (small bowel obstruction): Likely secondary to adhesions from previous cholecystectomy (which she was told had a lot of adhesions intraoperatively), as well as one Having continued issues with functioning of NGT-repositioned twice and now working a little bit better, but continues to vomit at times with tube in place and feels significant pain requiring IV morphine, no flatus or BM in many days -continue morphine prn pain -remains with soft, benign abdomen -continue NGT low intermittent suction and flush prn -continue NPO -continue IV pepcid for gastric protection -cont IVFs to D51/2 NS with KCl 20 meq -replace lytes -appreciate Surgery consultation -follow BMP, Mag, Phos -SBFT unable to be completed due to continuous vomiting during test -KUB remains with SBO -will discuss with Surgery about need for surgery vs continued conservative therapy-placed call to Surgery and merlin JON (2) Migraine: PO meds held due to NPO PRN sub-q Imitrex. (3) Anxiety and depression: Sertraline held due to NPO (4) Chronic diarrhea: Cholestyramine held due to NPO. (5) Hypokalemia: Replace again Normally is on chlorthalidone for kidney stones and this causes hypokalemia Now just secondary to poor po intake -continue IVFs with KCl -replace with Potassium Phos IV today -follow BMP (6) Hypophosphatemia: replace with IV phos follow Phos level in AM on labs (7) Hypomagnesemia: replace with IV Mag follow Mag in AM on labs (8) DVT prophylaxis: Lovenox SQ Dispo-remain hospitalized Subjective Still having significant abd pain with minimal improvement with IV morphine. NGT draining more than yesterday but still only 180mL out all day and some of this is saline flush. No flatus. SHe went for a SBFT and vomited a lot after contrast was given through the tube. Having a raw sore throat as well. Says she just wants to have surgery and be done with it, is feeling miserable. Review of Systems Review of Systems: All systems reviewed & are unremarkable except as noted in HPI & below Physical Exam Constitutional: WD/WN, vitals as above Eyes: + anicteric sclerae ENMT: external ear and nose normal, oropharynx normal (except with NGT in place) Neck: trachea midline, no thyromegaly Respiratory: normal respiratory effort, lungs clear to auscultation Cardiovascular: RRR, no murmur, no edema Chest (Breasts): Chest: normal inspection of chest Gastrointestinal (Abdomen): Inspection/Auscultation: abdomen normal to inspection and + hypoactive bowel sounds; abdomen not distended Percussion/Palpation: + abdomen tender (mid abdomen, no guarding or rebound) and abdomen soft; no guarding and abdomen not rigid Musculoskeletal: Extremities: extremities normal to inspection; no cyanosis and no clubbing Skin: no rashes, warm and dry Neurologic: moves all extremities and awake; no focal motor deficits Psychiatric: Orientation: alert and oriented x 3 Affect: + flat affect Lymphatic: no lymphedema Results & Data ([facility]) Vital Signs (Past 12 Hours) Vital Signs Temp Pulse Resp BP BP Pulse Ox 09/20/19 10:51 36.6 C 60 18 121/88 98 09/20/19 07:27 36.8 C 57 L 16 105/76 97 Laboratory Results 09/20/19 09/20/19 Range/Units 04:58 04:58 WBC 6.95 (4.8-10.8) K/uL RBC 4.33 (4.2-5.4) M/uL Hgb 13.8 (12.0-16.0) g/dL Hct 39.6 (37-47) % MCV 91.5 (80-100) fL MCH 31.9 (25-34) pg MCHC 34.8 (32-36) g/dL RDW Std Deviation 43.0 (36.4-46.3) fL RDW Coeff of Hugo 12.7 (11.5-14.5) % Plt Count 222 (130-400) K/uL MPV 10.3 (7.4-10.4) fL Sodium 140 (136-145) mmol/L Potassium 3.0 L (3.5-5.1) mmol/L Chloride 110 H (98-107) mmol/L Carbon Dioxide 28 (21-32) mmol/L Anion Gap 2.0 L (3-11) BUN 5 L D (7-18) mg/dl Creatinine 0.66 (0.6-1.2) mg/dl Est Cr Clr Drug Dosing 123.1 ml/min Est GFR ( Amer) 130.8 Est GFR (Non-Af Amer) 112.9 BUN/Creatinine Ratio 6.9 L (10-20) Glucose 146 H (70-99) mg/dl Calcium 7.9 L (8.5-10.1) mg/dl Phosphorus 2.0 L (2.5-4.9) mg/dl Magnesium 1.8 (1.8-2.4) mg/dl PG Care Time/CCT Total # of Minutes Spent Total Time Spent with Patient: Total time spent is greater than 50% in coordination of care (as documented) at patient's floor/unit and/or counseling patient: Coding Level of Care Code 85777 Subseq Hosp Care Lvl 2 Diagnoses SBO (small bowel obstruction) K56.609 Migraine G43.909 Migraine type: unspecified Status migrainosus presence: without status migrainosus Intractability: not intractable Anxiety and depression F41.9; F32.9 Chronic diarrhea K52.9 Hypokalemia E87.6 Hypophosphatemia E83.39 Hypomagnesemia E83.42 DVT prophylaxis Z29.9 (1) Migraine Migraine type: unspecified Status migrainosus presence: without status migrainosus Intractability: not intractable Qualified Code(s): G43.909 - Migraine, unspecified, not intractable, without status migrainosus
[2019-09-20] MEDS ORDERED: CHLORASEPTIC 1.4% SOLN 180 ML BTL MT PRN ×2 (14:57→14:58)
[2019-09-21] MEDS: D5W AND 1/2NSS + 20MEQ KCL 20 MEQ/1,000 ML BAG IV SCH ×3 (02:17→18:42)
[2019-09-21] MEDS: MoRPHine SULFATE 4 MG/ML 1 ML CARP\\VIAL IV PRN ×6 (03:35→21:16)
[2019-09-21 05:16] LABS: Basophils # (auto) 0.03 K/uL (0-0.2); Basophils % (auto) 0.5 %; Eosinophils # (auto) 0.14 K/uL (0-0.5); Eosinophils % (auto) 2.3 %; Hematocrit (blood only) 33.6 % (37-47); Hemoglobin 11.9 g/dL (12.0-16.0); Immature Granulocytes # (auto) 0.01 K/uL (0.00-0.02); Immature Granulocytes % (auto) 0.2 %; Lymphocytes # (auto) 2.05 K/uL (1.2-3.4); Lymphocytes % (auto) 33.7 %; Mean Corpuscular Hemoglobin 31.9 pg (25-34); Mean Corpuscular Hgb Conc 35.4 g/dL (32-36); Mean Corpuscular Volume 90.1 fL (80-100); Mean Platelet Volume 9.8 fL (7.4-10.4); Monocytes # (auto) 0.55 K/uL (0.11-0.59); Neutrophils % (auto) 54.3 %; Platelet Count 194 K/uL (130-400); RDW Coefficient of Variation 12.7 % (11.5-14.5); RDW Standard Deviation 41.9 fL (36.4-46.3); Red Blood Count 3.73 M/uL (4.2-5.4); White Blood Count 6.08 K/uL (4.8-10.8)
[2019-09-21 05:44] LABS: Calcium 7.6 mg/dl (8.5-10.1); Est GFR (African American) 132.8; Est GFR (Non-African American) 114.6; Magnesium 1.9 mg/dl (1.8-2.4); Phosphorus 2.5 mg/dl (2.5-4.9); Potassium 3.2 mmol/L (3.5-5.1)
[2019-09-21] MEDS ORDERED: fentaNYL citrate 100 MCG/2 ML VIAL ONE ×2 (07:02→08:04)
[2019-09-21] MEDS ORDERED: MIDAZOLAM HCL 1 MG/ML 2ML VIAL ONE (07:02)
[2019-09-21] MEDS ORDERED: PROPOFOL IV EMULSION 10 MG/ML 20 ML VIAL IV ONE (07:14)
[2019-09-21] MEDS ORDERED: LIDOCAINE HCL 2% 2 ML VIAL/AMP(20MG/ML) INFIL ONE (07:14)
[2019-09-21] MEDS ORDERED: ONDANSETRON INJ 2 MG/ML 2 ML VIAL ONE (07:14)
[2019-09-21] MEDS ORDERED: ACETAMINOPHEN 1000 MG/100 ML IV IV ONE (07:15)
--- NOTE | 2019-09-21 07:19 | XRay Report ---
XR KUB/Abdomen 1 view CLINICAL HISTORY: Abdominal distention SMALL BOWEL OBSTRUCTION COMPARISON STUDY: No previous studies for comparison. FINDINGS: There is contrast within mildly dilated small bowel loops measuring up to 42 mm in diameter . Contrast is visualized within the colon. There are surgical clips in the right upper quadrant consi stent with a cholecystectomy. IMPRESSION: 1. Contrast within mildly dilated small bowel loops measuring up to 42 mm in diameter 2. Contrast is also visualized in the colon. 3. The findings are consistent with either a low-grade partial small bowel obstruction, or the sequel a of a prior obstructive episode with mild residual bowel dilatation ACT 112: Negative or not required by law. Electronically signed by: Jakob Flynn M.D. 09/21/2019 7:18 AM
[2019-09-21] MEDS ORDERED: BUPIVACAINE/EPINEPHRINE 0.5% MPF 1:200,000 10 ML VIAL ONE (07:21)
--- NOTE | 2019-09-21 07:24 | History & Physical Bridge Note ---
Date of Service September 21, 2019 History & Physical Bridge Note I have examined the patient, reviewed the History & Physical and in the interval since the performance of the History & Physical I have noted the following changes of clinical significance: no changes noted. pt with now bowel fx. continues to have pain. discussed options. discussed risks of surgery ( bleeding/infection/dvt/pe/mi/cva/injury to another organ etc...) questions answered. will proceed with laparoscopy/poss open release of sbo. pt agrees with plan.
--- NOTE | 2019-09-21 07:25 | Anesthesiology Consultation ---
Date of Service September 21, 2019 Assessment & Plan (1) Encounter for pre-operative examination: Chart Review Chart Review: Acceptable Risk for Surgery and Patient NOT seen in Pre Admission Testing Consults Requested none History Surgery Operation Date: 09/21/19 07:30 Proposed Procedures p Diagnostic Laparoscopy, Possible Laparotomy - Aneudy Ferreira, Height/Weight Height: 5 ft 5 in Weight: 81.6 kg Allergies Allergy/AdvReac Type Severity Reaction Status Date / Time No Known Allergies Allergy Verified 09/18/19 23:02 Medications Home Medications Medication Instructions Recorded Confirmed Last Taken prenat.vits,nithin,mnb-[id number] 1 tab PO DAILY #30 tab 02/26/19 09/18/19 Unknown chlorthalidone 25 mg tablet 25 mg PO DAILY #30 tab 02/27/19 09/18/19 Unknown potassium chloride 20 mEq 20 meq PO BID #60 tab 02/27/19 09/18/19 Unknown tablet,extended release sumatriptan succinate 6 mg/0.5 mL 6 mg SQ PRN #0.5 ml 02/27/19 09/18/19 Unknown subcutaneous pen injector loratadine 10 mg tablet 10 mg PO DAILY #30 tab 03/28/19 09/18/19 Unknown ketoconazole 2 % shampoo 1 appln TOP ONCE #120 ml 04/10/19 09/18/19 Unknown ketoconazole 2 % topical cream 1 appln TOP BID #60 gm 04/10/19 09/18/19 Unknown fluticasone propionate 50 1 sprays INTNAS DAILY #9.9 gm 04/11/19 09/18/19 Unknown mcg/actuation nasal spray,suspension cholestyramine (with sugar) 4 gram 4 gm PO DAILY #378 gm 05/08/19 09/18/19 Unknown oral powder rizatriptan 10 mg tablet 10 mg PO Q2H PRN #30 tab 08/08/19 09/18/19 Unknown sertraline 50 mg tablet 50 mg PO DAILY #30 tab 08/30/19 09/18/19 Unknown erenumab-aooe [Aimovig 70 mg SUBCUT MONTHLY 09/18/19 09/18/19 Unknown Autoinjector] Active Medications Generic Name Dose Route Start Last Admin Trade Name Freq PRN Reason Stop Dose Admin Enoxaparin Sodium 40 mg 09/19/19 09:00 09/20/19 07:44 Lovenox SQ 10/19/19 08:59 40 mg Q24H YOON Administration Fluticasone Propionate 1 sprays 09/19/19 09:00 09/20/19 07:32 Flonase NA 10/19/19 08:59 Not Given DAILY YOON Famotidine 20 mg/ Syringe 5 mls @ 2.5 mls/min 09/19/19 01:14 09/20/19 20:42 IV 10/19/19 01:13 2.5 mls/min BID YOON Administration Potassium Chloride/Dextrose/Sod Cl 20 meq in 1,000 mls @ 130 mls/hr 09/19/19 10:00 09/21/19 02:17 D5w And 1/2nss + 20meq Kcl IV 10/19/19 09:59 130 mls/hr .Q7H42M YOON Administration Ketorolac Tromethamine 15 mg 09/19/19 01:14 09/19/19 05:44 Toradol IV 09/24/19 01:13 15 mg Q6H PRN Administration Mild pain/fever Morphine Sulfate 4 mg 09/20/19 09:58 09/21/19 03:35 Morphine Sulfate IV 10/03/19 01:13 4 mg Q3H PRN Administration Severe Pain Ondansetron HCl 4 mg 09/19/19 01:14 09/20/19 23:56 Zofran IV 10/19/19 01:13 4 mg Q6H PRN Administration nausea or vomiting Phenol 2 sprays 09/20/19 14:58 09/20/19 16:57 Chloraseptic 1.4% [place] 10/20/19 14:57 2 sprays Q4 PRN Administration Sore Throat NPO Date Last Intake of Fluids: 09/18/19 Time Last Intake of Fluids: 19:00 Date Last Intake of Solids: 09/15/19 Time Last Intake of Solids: 20:00 Past Medical History Medical History Anxiety and depression Diabetes Hypokalemia Migraine Obesity (BMI 30.0-34.9) Recurrent kidney stones Tobacco abuse Toxemia of in third trimester (Resolved) Past Family History Family History Family/Other Heart disease Diabetes Hypertension Cancer Mother Diabetes Hypertension Stroke Father Prostate cancer Kidney stone Grandmother (Paternal) Breast cancer Grandfather (Maternal) Stroke Aunt Lung cancer Past Surgical History Surgical History History of cholecystectomy History of kidney surgery [place] teeth extracted Social History Smoking Status: Current every day smoker tobacco type: cigarettes Smoking cigarettes per day: 5 Do You Dip or Chew Tobacco: No Hx Alcohol Use: No Hx Substance Use: No Physical Exam Vital Signs Last Vital Signs Temp 36.6 C 09/21/19 07:20 Pulse 66 09/21/19 07:20 Resp 16 09/21/19 07:20 BP 112/75 09/21/19 07:20 Pulse Ox 96 09/21/19 07:20 Testing Laboratory Results 09/21/19 04:59 09/21/19 04:59 Urine Color Dark Yellow 09/18/19 21:06 Urine Appearance Clear (Clear) 09/18/19 21:06 Urine pH 6.0 (4.5-7.5) 09/18/19 21:06 Ur Specific Fisher > 1.045 (1.000-1.030) H 09/18/19 21:06 Urine Protein 1+ (Negative) H 09/18/19 21:06 Urine Glucose (UA) Negative (Negative) 09/18/19 21:06 Urine Ketones Negative (Negative) 09/18/19 21:06 Urine Nitrite Negative (Negative) 09/18/19 21:06 Ur Leukocyte Esterase Negative (Negative) 09/18/19 21:06 Urine WBC (Auto) 1-5 /hpf (0-5) 09/18/19 21:06 Urine RBC (Auto) >30 /hpf (0-4) H 09/18/19 21:06 U Hyaline Cast (Auto) 10-30 /lpf (0-5) H 09/18/19 21:06 U Epithel Cells (Auto) >30 /lpf (0-5) H 09/18/19 21:06 Urine Bacteria (Auto) Negative (Negative) 09/18/19 21:06 09/18/19 21:06 POC Ur Test NEG Electrocardiogram Date: 09/18/19 Findings: + SB @ (58) Chest X-Ray Date: 09/21/[address] [facility] [place] [phone] XRay Report Patient: RON DOW Date: 09/19/19 MR#: [id number]: [id number] Acct ID:[id number]: Date: [address] Zip: [place] [address] Age: 39Location: 3N Sex: F Room/Bed: [facility] Att Phy: Fina Kirby, MDDiagnosis: SBO Anna Phy: Chantel Perez, DOService Date: 09/21/19 Fam Phy:Interpreting Phy: Jakob Flynn MD Admit Phy: Emmanuel Xiao, Ordering Phy: Angelia Boone PA-C cc: ~ XR KUB/Abdomen 1 view CLINICAL HISTORY: Abdominal distention SMALL BOWEL OBSTRUCTION COMPARISON STUDY: No previous studies for comparison. FINDINGS: There is contrast within mildly dilated small bowel loops measuring up to 42 mm in diameter. Contrast is visualized within the colon. There are surgical clips in the right upper quadrant consistent with a cholecystectomy. IMPRESSION: 1. Contrast within mildly dilated small bowel loops measuring up to 42 mm in diameter 2. Contrast is also visualized in the colon. 3. The findings are consistent with either a low-grade partial small bowel obstruction, or the sequela of a prior obstructive episode with mild residual bowel dilatation ACT 112: Negative or not required by law. Electronically signed by: Jakob Flynn M.D. 09/21/2019 7:18 AM Dictated: 09/21/19 0716 Transcribed: 09/21/19 0716
[2019-09-21] MEDS ORDERED: HYDROmorphone INJ 1 MG/ML SYRINGE IV PRN (07:28)
[2019-09-21] MEDS ORDERED: MEPERIDINE HCL 25 MG/ML CARP/VIAL IV PRN (07:28)
[2019-09-21] MEDS ORDERED: ONDANSETRON INJ 2 MG/ML 2 ML VIAL IV PRN (07:28)
[2019-09-21] MEDS ORDERED: ePHEDrine sulfate 50 MG/ML AMP IV PRN (07:28)
[2019-09-21] MEDS ORDERED: ATROPINE SULFATE 0.1 MG/ML 10ML SYR IV PRN (07:28)
[2019-09-21] MEDS ORDERED: LABETALOL HCL IV 5 MG/ML 20ML IV PRN (07:28)
[2019-09-21] MEDS ORDERED: PHENYLEPHRINE 100MCG/ML 5ML SYR IV PRN (07:28)
[2019-09-21] MEDS ORDERED: SUCCINYLCHOLINE CHLORIDE 20 MG/ML 10 ML VIAL ONE (07:50)
[2019-09-21] MEDS ORDERED: ROCURONIUM BROMIDE 10 MG/ML 5 ML VIAL ONE (07:50)
[2019-09-21] MEDS ORDERED: CEFAZOLIN 250 MG/ML 1 GM VIAL ONE (07:51)
[2019-09-21] MEDS ORDERED: GLYCOPYRROLATE 0.2 MG/ML VIAL ONE (08:22)
[2019-09-21] MEDS ORDERED: NEOSTIGMINE METHYLSULFATE 5 MG/5 ML SYR ONE (08:22)
[2019-09-21] MEDS ORDERED: ALBUTEROL HFA INHALER 8.5 GM ONE (08:26)
[2019-09-21] MEDS ORDERED: CEFAZOLIN 2000MG 2,000 MG/15 ML SYR IV ONE (08:29)
[2019-09-21] MEDS: fentaNYL citrate 100 MCG/2 ML VIAL IV PRN ×3 (08:54→09:05)
--- NOTE | 2019-09-21 08:59 | Operative Report ---
PG Post Operative Report Pre & Post Diagnosis Operation Date: 09/21/19 07:30 Pre-Op Diagnosis: Small bowel obstruction Post-Op Diagnosis: Small bowel obstruction I identified the patient and participated in the time-out.: Yes Procedure Operation Date: 09/21/19 07:30 Actual Procedures p Diagnostic Laparoscopy, release of Small Bowel Obstruction(Not Applicable) - Aneudy Ferreira DO Surgeon Aneudy Ferreira DO Manager Care Management eric Salcedo Estimated Blood Loss 5 Findings Consistent with Post-Op Diagnosis Specimens none Description of Procedure After informed consent was obtained the patient was taken to the operating room placed in supine position. After successful intubation a Ordoñez catheter was placed and the abdomen sterilely prepped and draped in usual fashion. An upper midline incision through an old scar was made with a 15 blade scalpel and carried down through soft tissues using cautery. Anterior fascia was opened using cautery and two #0 Vicryl stay sutures were placed. Peritoneum was elevated with hemostats and incised under direct vision using Metzenbaum scissors. A finger sweep was performed. A 12 mm Bull trocar was placed and the abdomen insufflated to 20 mmHg. Laparoscope was inserted and the abdomen examined 360 degrees. We immediately noted moderately dilated small bowel loops in the upper abdomen as well as some free fluid in the pelvis. A left mid abdominal and left upper quadrant 5 mm trochars were placed under direct vision. The patient was placed in a Trendelenburg position and slightly air planed to the left. I was able to run the dilated small bowel distally until we met a transition point in the right lower quadrant. There was no adhesive band however it was looped upon itself and stuck underneath a second loop of bowel. This was easily reduced manually. Distal to this all of the small bowel was decompressed. I ran this the entire way to the ileocecal valve. We then ran it 1 more time from the ileocecal valve backwards the whole way up to the ligament of Treitz and that was the only abnormal area. I irrigated out the fluid in the pelvis. We looked around the remainder of the abdomen and there were no other abnormalities. The trochars were all removed and the abdomen desufflated. The fascia of the camera port was closed using 0 Vicryl in a [id number] fashion. All of the wounds were irrigated and closed using 4-0 Monocryl. Marcaine was injected around it for postoperative analgesia and Dermabond glue used as a dressing. The patient was awakened, extubated and transferred to recovery in stable condition. My physician ophthalmic assistant was present for the entire case. He helped prep the patient. He helped run the camera for me during my procedure as well as with wound closure and dressing placement. I attest to the content of the Intraoperative Record and any orders documented therein. Any exceptions are noted below.
--- NOTE | 2019-09-21 09:22 | Anesthesiology Progress Note ---
Date of Service September 21, 2019 Anesthesia Post Procedure Vital Signs Vital Signs: Temp Pulse Pulse Resp BP BP Pulse Ox 09/21/19 09:15 36.5 C 60 15 107/77 95 09/21/19 09:05 82 17 109/68 94 09/21/19 08:55 85 17 122/85 99 09/21/19 08:45 36.2 C L 84 19 127/70 97 09/21/19 07:20 36.6 C 66 16 112/75 96 09/21/19 06:50 37.0 C 67 16 109/70 97 09/20/19 22:51 36.9 C 62 16 111/74 96 09/20/19 15:05 36.7 C 54 L 16 111/74 99 09/20/19 10:51 36.6 C 60 18 121/88 98 Pain Intensity Abdomen: Pain Intensity: 3 Transfer of Care Handoff Completed per policy Notes Mental Status: alert / awake / arousable Patient Amnestic to Procedure: Yes Nausea / Vomiting: adequately controlled Pain: adequately controlled Airway Patency, RR, SpO2: stable & adequate BP & HR: stable & adequate Hydration State: stable & adequate Anesthetic Complications: no major complications apparent and Pt Satisfied with anesthetic care
[2019-09-21] MEDS: FAMOTIDINE 20 MG in SYRINGE 3 ML IV SCH ×2 (09:55→21:16)
[2019-09-21] MEDS: FLUTICASONE PROPIONATE NA SPR 16 GM BTL SCH (09:55)
[2019-09-21] MEDS: POTASSIUM CHLORIDE / WTR 10 MEQ/100 ML PLCT IV SCH ×2 (10:12→11:11)
[2019-09-21] MEDS: ONDANSETRON INJ 2 MG/ML 2 ML VIAL IV PRN ×2 (12:38→19:14)
[2019-09-21] MEDS: ENOXAPARIN INJ 40 MG/0.4 ML SYR SQ SCH (16:13)
--- NOTE | 2019-09-21 19:29 | Hospitalist Progress Note ---
Date of Service September 21, 2019 Assessment & Plan (1) SBO (small bowel obstruction): Has a h/o previous cholecystectomy (which she was told had a lot of adhesions intraoperatively), as well as one Had continued issues with functioning of NGT-repositioned twice, but continued to vomit at times with tube in place and had significant pain requiring IV morphine, no flatus or BM in many days -SBFT unable to be completed due to continuous vomiting during test -KUB remained with SBO Finally went for laparoscopic surgery and found to have kinking of small bowel stuck on itself -released by Surgery and no other abnormalities found during surgery on 09/21/19 -continue morphine prn pain -await return of bowel function post-op -NGT now discontinued -advanced to ice chips only -continue IV pepcid for gastric protection -cont IVFs D51/2 NS with KCl 20 meq -replace lytes-gave IV KCl today -appreciate Surgery consultation and management -follow BMP, Mag, Phos -encouraged ambulation (2) Migraine: PO meds held due to NPO PRN sub-q Imitrex. (3) Anxiety and depression: Sertraline held due to NPO (4) Chronic diarrhea: Cholestyramine held due to NPO. (5) Hypokalemia: Replace again Normally is on chlorthalidone for kidney stones and this causes hypokalemia Now just secondary to poor po intake -continue IVFs with KCl -replace with Potassium IV today -follow BMP (6) Hypophosphatemia: replaced with IV phos (7) Hypomagnesemia: replaced with IV Mag follow Mag in AM on labs (8) DVT prophylaxis: Lovenox SQ dcd for surgery-restart hopefully tomorrow Dispo-remain hospitalized Subjective Pt had surgery today, feeling much better, still no flatus. Having some pain still in abdomen but improved. No nausea except when she first gets morphine, but just for a few minutes. No chest pain. No SOB. No nause/vomiting NGT is removed and taking ice chips Review of Systems Review of Systems: All systems reviewed & are unremarkable except as noted in HPI & below Physical Exam Constitutional: WD/WN, vitals as above Eyes: + anicteric sclerae Neck: trachea midline, no thyromegaly Respiratory: normal respiratory effort, lungs clear to auscultation Cardiovascular: RRR, no murmur, no edema Chest (Breasts): Chest: normal inspection of chest Gastrointestinal (Abdomen): Inspection/Auscultation: + hypoactive bowel sounds; + abdomen abnormal to inspection (incisions laparoscopic with Dermabond in place) and abdomen not distended Percussion/Palpation: + abdomen tender (mild, but improved, no rebound) and abdomen soft; no guarding and abdomen not rigid Musculoskeletal: Extremities: extremities normal to inspection; no cyanosis and no clubbing Skin: no rashes, warm and dry Neurologic: moves all extremities and awake; no focal motor deficits Psychiatric: A+Ox3, euthymic affect Orientation: alert and oriented x 3 Lymphatic: no lymphedema Results & Data ([facility]) Vital Signs (Past 12 Hours) Vital Signs Temp Pulse Pulse Resp BP Pulse Ox 09/21/19 15:40 37.1 C 59 L 17 150/89 H 95 09/21/19 12:44 36.6 C 66 15 131/81 95 09/21/19 11:44 36.6 C 65 19 111/71 96 09/21/19 10:51 61 19 108/64 94 09/21/19 10:15 36.9 C 63 16 107/72 97 09/21/19 09:45 37.1 C 58 L 16 104/70 95 09/21/19 09:25 70 17 103/71 94 09/21/19 09:15 36.5 C 60 15 107/77 95 09/21/19 09:05 82 17 109/68 94 09/21/19 08:55 85 17 122/85 99 09/21/19 08:45 36.2 C L 84 19 127/70 97 Laboratory Results labs reviewed Hypokalemia PG Care Time/CCT Total # of Minutes Spent Total Time Spent with Patient: Total time spent is greater than 50% in coordination of care (as documented) at patient's floor/unit and/or counseling patient: Coding Level of Care Code 14019 Subseq Hosp Care Lvl 2 Diagnoses SBO (small bowel obstruction) K56.609 Migraine G43.909 Intractability: not intractable Migraine type: unspecified Status migrainosus presence: without status migrainosus Anxiety and depression F41.9; F32.9 Chronic diarrhea K52.9 Hypokalemia E87.6 Hypophosphatemia E83.39 Hypomagnesemia E83.42 DVT prophylaxis Z29.9 (1) Migraine Intractability: not intractable Migraine type: unspecified Status migrainos us presence: without status migrainosus Qualified Code(s): G43.909 - Migraine, unspecified, not intractable, without status migrainosus
[2019-09-22] MEDS: MoRPHine SULFATE 4 MG/ML 1 ML CARP\\VIAL IV PRN ×6 (00:05→16:19)
[2019-09-22] MEDS: D5W AND 1/2NSS + 20MEQ KCL 20 MEQ/1,000 ML BAG IV SCH ×5 (00:11→23:45)
[2019-09-22 06:48] LABS: Creatinine Clr Calc Pharmacy 112.9 ml/min
[2019-09-22] MEDS: FLUTICASONE PROPIONATE NA SPR 16 GM BTL SCH (07:37)
[2019-09-22] MEDS: SUMAtriptan succinate 6 MG/0.5 ML VIAL SQ PRN (08:32)
[2019-09-22] MEDS: FAMOTIDINE 20 MG in SYRINGE 3 ML IV SCH ×2 (08:36→20:46)
[2019-09-22 09:31] LABS: Calcium 8.1 mg/dl (8.5-10.1); Est GFR (African American) 132.1; Potassium 3.3 mmol/L (3.5-5.1)
--- NOTE | 2019-09-22 11:40 | Surgery Progress Note ---
Date of Service September 22, 2019 Assessment & Plan (1) Small bowel obstruction: s/p laparoscopy. Pain well controlled. Still awaiting return of bowel function prior to advancing diet. Encouraged ambulation. Present on Admission?: Yes Subjective POD#1 laparoscopy for small bowel obstruction. NG removed. Abdomen still feels bloated to her, no flatus yet. No nausea/ vomiting. Review of Systems Review of Systems: All systems reviewed & are unremarkable except as noted in HPI & below Physical Exam Constitutional: WD/WN, vitals as above Neck: trachea midline, no thyromegaly Respiratory: normal respiratory effort, lungs clear to auscultation Cardiovascular: RRR, no murmur, no edema Gastrointestinal (Abdomen): Inspection/Auscultation: + abdomen distended Percussion/Palpation: + abdomen tender (mild) and abdomen soft; no guarding hypoactive bowel tones incisions clean and intact Musculoskeletal: Head/Neck/Chest: normocephalic and head atraumatic Gait: + abnormal gait Neurologic: no focal motor deficits Psychiatric: A+Ox3, euthymic affect Results & Data Vital Signs (Past 12 Hours) Vital Signs Temp Pulse Resp BP Pulse Ox 09/22/19 07:06 37.0 C 65 16 121/71 97 09/22/19 03:10 36.8 C 56 L 16 131/84 96
[2019-09-22] MEDS: POTASSIUM CHLORIDE / WTR 10 MEQ/100 ML PLCT IV SCH ×3 (12:24→14:26)
[2019-09-22] MEDS ORDERED: ACETAMINOPHEN 1,000 MG/100 ML VIAL IV PRN (18:41)
--- NOTE | 2019-09-22 18:43 | Hospitalist Progress Note ---
Date of Service September 22, 2019 Assessment & Plan (1) SBO (small bowel obstruction): Has a h/o previous cholecystectomy (which she was told had a lot of adhesions intraoperatively), as well as one Had continued issues with functioning of NGT-repositioned twice, but continued to vomit at times with tube in place and had significant pain requiring IV morphine, no flatus or BM in many days -SBFT unable to be completed due to continuous vomiting during test -KUB remained with SBO Finally went for laparoscopic surgery and found to have kinking of small bowel stuck on itself -released by Surgery and no other abnormalities found during surgery on 09/21/19 Still awaiting return of bowel function-no flatus yet but bowel sounds are starting to return today -Continue frequent ambulation -continue morphine prn pain but advised her to try to space this out more as this is contributing to ileus, also added Toradol and IV Tylenol -await return of bowel function post-op -NGT now discontinued -Continue ice chips only -continue IV pepcid for gastric protection -cont IVFs D51/2 NS with KCl 20 meq -replace lytes-gave IV KCl again today -appreciate Surgery consultation and management -follow BMP, Mag, Phos -encouraged ambulation (2) Migraine: PO meds held due to NPO Having a migraine headache today Continue PRN sub-q Imitrex. -add on toradol, IV tylenol prn (3) Anxiety and depression: Sertraline held due to NPO (4) Chronic diarrhea: Cholestyramine held due to NPO. (5) Hypokalemia: Replace again Normally is on chlorthalidone for kidney stones and this causes hypokalemia Now just secondary to poor po intake -continue IVFs with KCl -replace with Potassium IV today -follow BMP (6) Hypophosphatemia: replaced with IV phos and then normalized (7) Hypomagnesemia: Replaced and resolved follow Mag in AM on labs (8) DVT prophylaxis: Lovenox SQ dcd for surgery-restart today Dispo-remain hospitalized Subjective Reports still having some abdominal pain and taking morphine fairly regularly but not as bad as before. Still no flatus. No nausea or vomiting. She is tolerating ice chips. Denies chest pain or shortness of breath. She is frustrated with how long her bowel function is taking to return. She has been ambulating quite frequently around the [place]. Advised her to try to hold off on taking as much morphine. She also reports she is starting to get a migraine headache and took Imitrex today which only helped temporarily. She is agreeable to trying morphine and IV Tylenol. Review of Systems Review of Systems: All systems reviewed & are unremarkable except as noted in HPI & below Physical Exam Constitutional: WD/WN, vitals as above Eyes: + anicteric sclerae Neck: trachea midline, no thyromegaly Respiratory: normal respiratory effort, lungs clear to auscultation Cardiovascular: RRR, no murmur, no edema Chest (Breasts): Chest: normal inspection of chest Gastrointestinal (Abdomen): Inspection/Auscultation: + hypoactive bowel sounds (But slightly improved from previous and hearing some); + abdomen abnormal to inspection (incisions laparoscopic with Dermabond in place) and abdomen not distended Percussion/Palpation: + abdomen tender (mild, but improved, no rebound) and abdomen soft; no guarding and abdomen not rigid Musculoskeletal: Extremities: extremities normal to inspection; no cyanosis and no clubbing Skin: no rashes, warm and dry Neurologic: moves all extremities and awake; no focal motor deficits Psychiatric: A+Ox3, euthymic affect Lymphatic: no lymphedema Results & Data ([facility]) Vital Signs (Past 12 Hours) Vital Signs Temp Pulse Resp BP Pulse Ox 09/22/19 15:11 37.1 C 57 L 16 119/81 99 09/22/19 07:06 37.0 C 65 16 121/71 97 Laboratory Results Labs reviewed, hypokalemia with potassium 3.3 PG Care Time/CCT Total # of Minutes Spent Total Time Spent with Patient: Total time spent is greater than 50% in coordination of care (as documented) at patient's floor/unit and/or counseling patient: Coding Level of Care Code 99170 Subseq Hosp Care Lvl 2 Diagnoses SBO (small bowel obstruction) K56.609 Migraine G43.909 Intractability: not intractable Migraine type: unspecified Status migrainosus presence: without status migrainosus Anxiety and depression F41.9; F32.9 Chronic diarrhea K52.9 Hypokalemia E87.6 Hypophosphatemia E83.39 Hypomagnesemia E83.42 DVT prophylaxis Z29.9 (1) Migraine Intractability: not intractable Migraine type: unspecified Status migrainosus presence: without status migrainosus Qualified Code(s): G43.909 - Migraine, unspecified, not intractable, without status migrainosus
[2019-09-22] MEDS: KETOROLAC 30 MG/ML VIAL IV PRN (18:48)
[2019-09-23] MEDS: SUMAtriptan succinate 6 MG/0.5 ML VIAL SQ PRN (03:36)
[2019-09-23] MEDS: ONDANSETRON INJ 2 MG/ML 2 ML VIAL IV PRN ×3 (04:03→19:52)
[2019-09-23] MEDS: D5W AND 1/2NSS + 20MEQ KCL 20 MEQ/1,000 ML BAG IV SCH ×3 (05:55→19:42)
[2019-09-23 07:19] LABS: Albumin Level 2.6 gm/dl (3.4-5.0); BUN Creatinine Ratio 5.3 (10-20); Calcium 8.3 mg/dl (8.5-10.1); Est GFR (African American) 132.1; Magnesium 1.6 mg/dl (1.8-2.4); Potassium 3.7 mmol/L (3.5-5.1)
[2019-09-23 07:22] LABS: Albumin Globulin Ratio 0.9 (0.9-2); Bilirubin,Total 0.5 mg/dl (0.2-1); Globulin 2.8 gm/dl (2.5-4.0); Phosphorus 2.4 mg/dl (2.5-4.9); Total Protein 5.4 gm/dl (6.4-8.2)
[2019-09-23] MEDS: FLUTICASONE PROPIONATE NA SPR 16 GM BTL SCH (07:36)
[2019-09-23] MEDS: FAMOTIDINE 20 MG in SYRINGE 3 ML IV SCH ×2 (09:19→21:32)
[2019-09-23] MEDS ORDERED: POTASSIUM PHOS 3 MMOL/1 ML INFUSION IV STA (09:52)
--- NOTE | 2019-09-23 10:05 | Surgery Progress Note ---
Date of Service September 23, 2019 Assessment & Plan (1) Small bowel obstruction: s/p diagnostic laparoscopy. Overall improving - starting to pass flatus, feels somewhat better. Wants to try liquids today - order placed. Continue to increase activity as tolerated. Subjective Passed flatus yesterday (small amounts) but is feeling better.More gas pain but less of the fullness/ dull achy/ distention. did vomit small amount yesterday morning and felt need for antinausea meds this morning Review of Systems Review of Systems: All systems reviewed & are unremarkable except as noted in HPI & below Physical Exam Constitutional: WD/WN, vitals as above Respiratory: normal respiratory effort, lungs clear to auscultation Cardiovascular: RRR, no murmur, no edema Gastrointestinal (Abdomen): Inspection/Auscultation: + abdomen distended (less than yesterday) and + hypoactive bowel sounds Percussion/Palpation: abdomen soft; abdomen nontender and no guarding incisions clean Musculoskeletal: no cyanosis or clubbing, extremities motor strength 5/5 Neurologic: moves all extremities; no focal motor deficits Psychiatric: A+Ox3, euthymic affect Results & Data Vital Signs (Past 12 Hours) Vital Signs Temp Pulse Resp BP Pulse Ox 09/23/19 07:28 37.1 C 63 16 123/82 99 09/22/19 23:10 36.7 C 66 18 117/78 97
[2019-09-23] MEDS ORDERED: MAGNESIUM SULFATE / D5W 1 GM/100 ML BAG IV ONE (10:15)
[2019-09-23] MEDS ORDERED: POTASSIUM PHOSPHATE 15 MMOL in SODIUM CHLORIDE 0.9% 250 ML IV ONE (10:30)
[2019-09-23] MEDS: ENOXAPARIN INJ 40 MG/0.4 ML SYR SQ SCH (11:17)
[2019-09-23] MEDS: KETOROLAC 30 MG/ML VIAL IV PRN (13:07)
[2019-09-23] MEDS ORDERED: PROCHLORPERAZINE 10 MG in SYRINGE 8 ML IV PRN ×2 (15:18→22:12)
--- NOTE | 2019-09-23 15:21 | Hospitalist Progress Note ---
Date of Service September 23, 2019 Assessment & Plan (1) SBO (small bowel obstruction): Has a h/o previous cholecystectomy (which she was told had a lot of adhesions intraoperatively), as well as one Had continued issues with functioning of NGT-repositioned twice, but continued to vomit at times with tube in place and had significant pain requiring IV morphine, no flatus or BM in many days -SBFT unable to be completed due to continuous vomiting during attempt to get test -KUB remained with SBO Finally went for laparoscopic surgery and found to have kinking of small bowel stuck on itself -released by Surgery and no other abnormalities found during surgery on 09/21/19 On 09/23--> passing some small BMs, one episode of flatus, but with continued pain, nausea, bloating--> remains with ileus, KUB with distended small bowel but with stool now in rectum and contrast throughout from previous attempt at SBFT -Continue frequent ambulation -bisacodyl suppos AL x 1 today-discussed with Surgery -continue morphine prn pain but advised her to try to space this out more as this is contributing to ileus -dc toradol as is causing rebound migraine -continue IV tylenol prn -NGT now discontinued -advanced to clears today as tolerated -continue IV pepcid for gastric protection -cont IVFs D51/2 NS with KCl 20 meq -replace lytes-gave IV KCl, Phos, Mag again today -appreciate Surgery consultation and management -follow BMP, Mag, Phos -await improvement in symptoms and continued improvement in bowel function/ileus (2) Migraine: PO meds held due to NPO continues to be having a migraine headache today Continue PRN sub-q Imitrex. -dc toradol due to rebound -continue IV tylenol prn -add on IV COMpazine prn (3) Anxiety and depression: Sertraline held due to NPO (4) Chronic diarrhea: Cholestyramine held due to NPO. (5) Hypokalemia: Replace again Normally is on chlorthalidone for kidney stones and this causes hypokalemia Now just secondary to poor po intake -continue IVFs with KCl -replace with Potassium IV today -follow BMP (6) Hypophosphatemia: replace with IV phos today -follow Phos in AM (7) Hypomagnesemia: Replaced and still low today -IV Mag x 1 gram today follow Mag in AM on labs (8) DVT prophylaxis: Lovenox SQ Dispo-remain hospitalized Subjective Pt did pass flatus last evening at 2300 and then had 2 small BMs this AM. SHe started having increased abd pain again then just before noon and tried eating some clear liquids but only able to take a few bites. Had N/V x 1 this AM associated with morphine administration. Also having continued issue with migraine continuing today and worse than yesterday. Reports NSAIDs have caused her rebound HAs in the past so will dc the toradol Repeated KUB and shows stool in rectum and contrast throughout from her previous SBFT 3 days ago. Gave bisacodyl suppos and had 2 more small BMs but continues to have pain and bloating. Is ambulating halls. Still using morphine I discussed the case with Dr. Noemi Fishman today on phone Review of Systems Review of Systems: All systems reviewed & are unremarkable except as noted in HPI & below Physical Exam Constitutional: WD/WN, vitals as above Eyes: + anicteric sclerae Neck: trachea midline, no thyromegaly Respiratory: normal respiratory effort, lungs clear to auscultation Cardiovascular: RRR, no murmur, no edema Chest (Breasts): Chest: normal inspection of chest Gastrointestinal (Abdomen): Inspection/Auscultation: normal bowel sounds (much more active BS today, NOT high pitched); + abdomen abnormal to inspection (incisions laparoscopic with Dermabond in place) and abdomen not distended Percussion/Palpation: + abdomen tender (mild,mid abdomen, no guarding or rebound) and abdomen soft; no guarding and abdomen not rigid Musculoskeletal: Extremities: extremities normal to inspection; no cyanosis and no clubbing Skin: no rashes, warm and dry Neurologic: moves all extremities and awake; no focal motor deficits Psychiatric: Orientation: alert and oriented x 3 Affect: + flat affect Lymphatic: no lymphedema Results & Data ([facility]) Vital Signs (Past 12 Hours) Vital Signs Temp Pulse Resp BP Pulse Ox 09/23/19 07:28 37.1 C 63 16 123/82 99 Laboratory Results 09/23/19 Range/Units 06:01 Sodium 141 (136-145) mmol/L Potassium 3.7 (3.5-5.1) mmol/L Chloride 113 H (98-107) mmol/L Carbon Dioxide 24 (21-32) mmol/L Anion Gap 5.0 (3-11) BUN 3 L (7-18) mg/dl Creatinine 0.64 (0.6-1.2) mg/dl Est Cr Clr Drug Dosing 127.0 ml/min Est GFR ( Amer) 132.1 Est GFR (Non-Af Amer) 114.0 BUN/Creatinine Ratio 5.3 L (10-20) Glucose 135 H (70-99) mg/dl Calcium 8.3 L (8.5-10.1) mg/dl Phosphorus 2.4 L (2.5-4.9) mg/dl Magnesium 1.6 L (1.8-2.4) mg/dl Total Bilirubin 0.5 (0.2-1) mg/dl AST 41 H (15-37) U/L ALT 64 (12-78) U/L Alkaline Phosphatase 78 (45-117) U/L Total Protein 5.4 L (6.4-8.2) gm/dl Albumin 2.6 L (3.4-5.0) gm/dl Globulin 2.8 (2.5-4.0) gm/dl Albumin/Globulin Ratio 0.9 (0.9-2) Diagnostic Findings KUB image personally reviewed by me--> with distended small bowel throughout, but with stool and gas in rectum, contrast throughout entire small and large bowel from previous SBFT. Consistent with ileus PG Care Time/CCT Total # of Minutes Spent Total Time Spent with Patient: Total time spent is greater than 50% in coordination of care (as documented) at patient's floor/unit and/or counseling patient: Coding Level of Care Code 44020 Subseq Hosp Care Lvl 3 Diagnoses SBO (small bowel obstruction) K56.609 Migraine G43.909 Intractability: not intractable Migraine type: unspecified Status migrainosus presence: without status migrainosus Anxiety and depression F41.9; F32.9 Chronic diarrhea K52.9 Hypokalemia E87.6 Hypophosphatemia E83.39 Hypomagnesemia E83.42 DVT prophylaxis Z29.9 (1) Migraine Intractability: not intractable Migraine type: unspecified Status migrainosus presence: without status migrainosus Qualified Code(s): G43.909 - Migraine, unspecified, not intractable, without status migrainosus
[2019-09-23] MEDS ORDERED: bisacodyL 10 MG SUPP PR STA (15:38)
--- NOTE | 2019-09-23 15:42 | XRay Report ---
KUB HISTORY: recent SBO,worsening abd pain COMPARISON: KUB 09/21/2019. FINDINGS: Multiple dilated loops of small bowel have progressed. These measure up to 4 cm in diameter . Contrast from the prior study is seen throughout the small bowel, colon, and rectum. Prior cholecys tectomy. No renal calculi. No ureteral calculi. No pneumoperitoneum or pneumatosis. IMPRESSION: Dilated loops of small bowel have progressed suggesting a small bowel obstruction. Oral contrast is s een both within the small bowel and large bowel. Therefore, this favors a high-grade partial small long wel obstruction. ACT 112: Negative or not required by law. Electronically signed by: Matias Jessica M.D. 09/23/2019 3:41 PM
[2019-09-23] MEDS: MoRPHine SULFATE 2 MG/ML CARP IV PRN ×3 (15:58→22:16)
[2019-09-23] MEDS ORDERED: METOCLOPRAMIDE HCL INJ 5 MG/ML 2 ML VIAL IV ONE (21:24)
[2019-09-24] MEDS: D5W AND 1/2NSS + 20MEQ KCL 20 MEQ/1,000 ML BAG IV SCH (03:33)
[2019-09-24 06:19] LABS: BUN Creatinine Ratio 5.6 (10-20); Calcium 7.8 mg/dl (8.5-10.1); Est GFR (African American) 132.1; Magnesium 1.9 mg/dl (1.8-2.4); Phosphorus 2.6 mg/dl (2.5-4.9); Potassium 3.8 mmol/L (3.5-5.1)
[2019-09-24] MEDS ORDERED: HYDROCODONE/ACETAMOPHEN 5/325MG TAB PO PRN ×2 (08:04)
[2019-09-24] MEDS: FLUTICASONE PROPIONATE NA SPR 16 GM BTL SCH (08:38)
[2019-09-24] MEDS: ENOXAPARIN INJ 40 MG/0.4 ML SYR SQ SCH (08:39)
[2019-09-24] MEDS: FAMOTIDINE 20 MG in SYRINGE 3 ML IV SCH ×2 (08:39→20:30)
--- NOTE | 2019-09-24 08:46 | Surgery Progress Note ---
Date of Service September 24, 2019 Assessment & Plan (1) Small bowel obstruction: POD 3 diagnostic laparoscopy full liquids to low fiber as donis po analgesics home when tolerating diet, maybe later today or tomorrow pt seen. earlier had about 3 episodes of emesis. has also had about 2-3 bms. KUB yesterday still showing dilated loops small bowel. +contrast in colon. ? etiology. will restart IVF's. pt to only take po fluids cautiously. awaiting full return of bowel fx. Subjective pain and nausea last evening, had BM this morning and doing much better Physical Exam Gastrointestinal (Abdomen): Inspection/Auscultation: + abdomen distended (minimal) Percussion/Palpation: abdomen soft Results & Data Vital Signs (Past 12 Hours) Vital Signs Temp Pulse Resp BP BP Pulse Ox 09/24/19 06:59 36.9 C 83 16 124/77 96 09/23/19 23:10 37 C 82 16 111/67 93 PG Care Time/CCT Total # of Minutes Spent Total Time Spent with Patient: Total time spent is greater than 50% in coordination of care (as documented) at patient's floor/unit and/or counseling patient: Coding Level of Care Code None Diagnoses Small bowel obstruction K56.609
[2019-09-24] MEDS: ONDANSETRON INJ 2 MG/ML 2 ML VIAL IV PRN (10:58)
[2019-09-24] MEDS ORDERED: SODIUM CHLORIDE 0.9% 1000ML 1,000 ML IV ONE (11:37)
[2019-09-24] MEDS: SODIUM CHLORIDE 0.9% 1000ML 1,000 ML IV SCH ×2 (13:06→20:29)
[2019-09-24] MEDS: MoRPHine SULFATE 2 MG/ML CARP IV PRN ×5 (13:08→20:28)
--- NOTE | 2019-09-24 18:03 | Hospitalist Progress Note ---
Date of Service September 24, 2019 Assessment & Plan (1) SBO (small bowel obstruction): Patient is slowly improving. Would not tolerate GI soft today. She is back to n.p.o. and IV fluids for the abdominal rest. Has a h/o previous cholecystectomy (which she was told had a lot of adhesions i ntraoperatively), as well as one Had continued issues with functioning of NGT-repositioned twice, but continued to vomit at times with tube in place and had significant pain requiring IV mor phine, no flatus or BM in many days -SBFT unable to be completed due to continuous vomiting during attempt to get test -KUB remained with SBO Finally went for laparoscopic surgery and found to have kinking of small bowel stuck on itself -released by Surgery and no other abnormalities found during surgery on 09/21/19 On 09/23--> passing some small BMs, one episode of flatus, but with continued pain, nausea, bloating--> remains with ileus, KUB with distended small bowel but with stool now in rectum and contrast throughout from previous attempt at SBFT -Continue frequent ambulation -bisacodyl suppos NE x 1 today-discussed with Surgery -continue morphine prn pain but advised her to try to space this out more as this is contributing to ileus -dc toradol as is causing rebound migraine -continue IV tylenol prn -NGT now discontinued -advanced to clears today as tolerated -continue IV pepcid for gastric protection -cont IVFs D51/2 NS with KCl 20 meq -replace lytes-gave IV KCl, Phos, Mag again today -appreciate Surgery consultation and management -follow BMP, Mag, Phos -await improvement in symptoms and continued improvement in bowel function/ileus (2) Migraine: PO meds held due to NPO continues to be having a migraine headache today Continue PRN sub-q Imitrex. -dc toradol due to rebound -continue IV tylenol prn -add on IV COMpazine prn (3) Anxiety and depression: Sertraline held due to NPO (4) Chronic diarrhea: Cholestyramine held due to NPO. (5) Hypokalemia: Replace again Normally is on chlorthalidone for kidney stones and this causes hypokalemia Now just secondary to poor po intake -continue IVFs with KCl -replace with Potassium IV today -follow BMP (6) Hypophosphatemia: replace with IV phos today -follow Phos in AM (7) Hypomagnesemia: Replaced and still low today -IV Mag x 1 gram today follow Mag in AM on labs (8) DVT prophylaxis: Lovenox SQ Dispo-remain hospitalized Subjective Patient seen and examined at the bedside. She tried GI soft today and did not tolerate well. Patient is back to n.p.o. and IV fluids. Patient denies fever, chills, chest pain, shortness of breath, frequency, urgency. Review of Systems Review of Systems: All systems reviewed & are unremarkable except as noted in HPI & below Physical Exam Constitutional: WD/WN, vitals as above + obese Eyes: + anicteric sclerae ENMT: Mouth: no TMJ abnormality Mallampati Class: II Neck: trachea midline, no thyromegaly normal visual inspection Respiratory: normal respiratory effort, lungs clear to auscultation normal respiratory effort Auscultation: lungs clear to auscultation bilaterally Cardiovascular: RRR, no murmur, no edema Rate/Rhythm: regular rate and regular rhythm Chest (Breasts): Chest: normal inspection of chest Gastrointestinal (Abdomen): Inspection/Auscultation: + abdomen distended (minimal), normal bowel sounds (much more active BS today, NOT high pitched) and + hypoactive bowel sounds; + abdomen abnormal to inspection (incisions laparoscopic with Dermabond in place) Percussion/Palpation: + abdomen tender (mild,mid abdomen, no guarding or rebound) and abdomen soft; no guarding and abdomen not rigid Musculoskeletal: no cyanosis or clubbing, extremities motor strength 5/5 Head/Neck/Chest: normocephalic and head atraumatic Spine: normal cervical ROM Extremities: extremities normal to inspection; no cyanosis and no clubbing Gait: + abnormal gait Skin: no rashes, warm and dry Neurologic: moves all extremities and awake; no focal motor deficits Psychiatric: A+Ox3, euthymic affect Orientation: alert and oriented x 3 Affect: + flat affect Lymphatic: no lymphedema Results & Data ([facility]) Vital Signs (Past 12 Hours) Vital Signs Temp Pulse Resp BP Pulse Ox 09/24/19 15:26 37.0 C 67 17 142/86 H 99 09/24/19 06:59 36.9 C 83 16 124/77 96 PG Care Time/CCT Total # of Minutes Spent Total Time Spent with Patient: Total time spent is greater than 50% in coordination of care (as documented) at patient's floor/unit and/or counseling patient: Coding Level of Care Code 25643 Subseq Hosp Care Lvl 3 Diagnoses SBO (small bowel obstruction) K56.609 Migraine G43.909 Migraine type: unspecified Status migrainosus presence: without status migrainosus Intractability: not intractable Anxiety and depression F41.9; F32.9 Chronic diarrhea K52.9 Hypokalemia E87.6 Hypophosphatemia E83.39 Hypomagnesemia E83.42 DVT prophylaxis Z29.9 (1) Migraine Migraine type: unspecified Status migrainosus presence: without status migrainosus Intractability: not intractable Qualified Code(s): G43.909 - Migraine, unspecified, not intractable, without status migrainosus
[2019-09-25] MEDS: MoRPHine SULFATE 2 MG/ML CARP IV PRN ×6 (03:43→20:44)
[2019-09-25] MEDS: SODIUM CHLORIDE 0.9% 1000ML 1,000 ML IV SCH ×3 (04:29→20:50)
[2019-09-25 06:27] LABS: Creatinine Clr Calc Pharmacy 137.8 ml/min; Est GFR (African American) 135.7; Est GFR (Non-African American) 117.1
[2019-09-25] MEDS: FAMOTIDINE 20 MG in SYRINGE 3 ML IV SCH ×2 (08:06→20:45)
--- NOTE | 2019-09-25 08:50 | Surgery Progress Note ---
Date of Service September 25, 2019 Assessment & Plan (1) Small bowel obstruction: POD#4 diagnostic laparoscopy patient is starting to have + bowel function she is tolerating only a minimal amount of liquids, but overall clinically appears to be improving will obtain a KUB today to evaluate bowel pattern will continue with full liquids for today yet; patient picking and choosing what is appetizing to her. continue ambulation patient seen and examined with Dr. Ferreira as above/pt seen. had vomitting yesterday. feeling somewhat better today. +multiple bm's. KUB today still with dilated bowel... +contrast in colon. ? etiology as there was no adhesions at initial surgery. will treat as an ileus. she does seem to be slowly improving. no n/v today. +bms this AM. stay with liquids orally for now. Subjective Patient feels as though her nausea is improving since overnight. Her appetite is slow to return. She is starting to pass flatus and had a couple episodes of loose stool. She is ambulating frequently. Physical Exam Physical Exam: awake/alert, sitting up in bed Constitutional: well developed and well nourished; no acute distress Results & Data Vital Signs (Past 12 Hours) Vital Signs Temp Pulse Resp BP Pulse Ox 09/25/19 07:55 37.2 C 78 20 110/73 97 09/25/19 07:16 36.3 C L 70 16 118/79 93 09/24/19 23:00 37.4 C 88 16 123/83 96 PG Care Time/CCT Total # of Minutes Spent Total Time Spent with Patient: Total time spent is greater than 50% in coordination of care (as documented) at patient's floor/unit and/or counseling patient: Coding Level of Care Code None Diagnoses Small bowel obstruction K56.609
--- NOTE | 2019-09-25 09:05 | Hospitalist Progress Note ---
Date of Service September 25, 2019 Assessment & Plan (1) SBO (small bowel obstruction): Patient is slowly improving. Would not tolerate GI soft today. She is back to n.p.o. and IV fluids for the abdominal rest. Has a h/o previous cholecystectomy (which she was told had a lot of adhesions i ntraoperatively), as well as one Had continued issues with functioning of NGT-repositioned twice, but continued to vomit at times with tube in place and had significant pain requiring IV mor phine, no flatus or BM in many days -SBFT unable to be completed due to continuous vomiting during attempt to get test -KUB remained with SBO Finally went for laparoscopic surgery and found to have kinking of small bowel stuck on itself -released by Surgery and no other abnormalities found during surgery on 09/21/19 On 09/23--> passing some small BMs, one episode of flatus, but with continued pain, nausea, bloating--> remains with ileus, KUB with distended small bowel but with stool now in rectum and contrast throughout from previous attempt at SBFT -Continue frequent ambulation -bisacodyl suppos RI x 1 today-discussed with Surgery -continue morphine prn pain but advised her to try to space this out more as this is contributing to ileus -dc toradol as is causing rebound migraine -continue IV tylenol prn -NGT now discontinued -advanced to clears today as tolerated -continue IV pepcid for gastric protection -cont IVFs D51/2 NS with KCl 20 meq -replace lytes-gave IV KCl, Phos, Mag again today -appreciate Surgery consultation and management -follow BMP, Mag, Phos -Keep n.p.o. for now -await improvement in symptoms and continued improvement in bowel function/ileus (2) Migraine: PO meds held due to NPO continues to be having a migraine headache today Continue PRN sub-q Imitrex. -dc toradol due to rebound -continue IV tylenol prn -add on IV COMpazine prn (3) Anxiety and depression: Sertraline held due to NPO (4) Chronic diarrhea: Cholestyramine held due to NPO. (5) Hypokalemia: Replace again Normally is on chlorthalidone for kidney stones and this causes hypokalemia Now just secondary to poor po intake -continue IVFs with KCl -replace with Potassium IV today -follow BMP (6) Hypophosphatemia: replace with IV phos today -follow Phos in AM (7) Hypomagnesemia: Replaced and still low today -IV Mag x 1 gram today follow Mag in AM on labs (8) DVT prophylaxis: Lovenox SQ Dispo-remain hospitalized Subjective Patient seen and examined at the bedside.she states that she is passing flatus but still feels very bloated. She complained of abdominal pain this morning but KUB showed slight improvement. Patient ate some clear liquids but did not tolerate well. Recommended to go to n.p.o. and bowel rest. Review of Systems Review of Systems: All systems reviewed & are unremarkable except as noted in HPI & below Physical Exam Constitutional: WD/WN, vitals as above + obese Eyes: + anicteric sclerae ENMT: Mouth: no TMJ abnormality Mallampati Class: II Neck: trachea midline, no thyromegaly normal visual inspection Respiratory: normal respiratory effort, lungs clear to auscultation normal respiratory effort Auscultation: lungs clear to auscultation bilaterally Cardiovascular: RRR, no murmur, no edema Rate/Rhythm: regular rate and regular rhythm Chest (Breasts): Chest: normal inspection of chest Gastrointestinal (Abdomen): Inspection/Auscultation: + abdomen distended (minimal), normal bowel sounds (much more active BS today, NOT high pitched) and + hypoactive bowel sounds; + abdomen abnormal to inspection (incisions laparoscopic with Dermabond in place) Percussion/Palpation: + abdomen tender (mild,mid abdomen, no guarding or rebound) and abdomen soft; no guarding and abdomen not rigid Musculoskeletal: no cyanosis or clubbing, extremities motor strength 5/5 Head/Neck/Chest: normocephalic and head atraumatic Spine: normal cervical ROM Extremities: extremities normal to inspection; no cyanosis and no clubbing Gait: + abnormal gait Skin: no rashes, warm and dry Neurologic: moves all extremities and awake; no focal motor deficits Psychiatric: A+Ox3, euthymic affect Orientation: alert and oriented x 3 Affect: + flat affect Lymphatic: no lymphedema Results & Data ([facility]) Vital Signs (Past 12 Hours) Vital Signs Temp Pulse Resp BP Pulse Ox 09/25/19 07:55 37.2 C 78 20 110/73 97 09/25/19 07:16 36.3 C L 70 16 118/79 93 09/24/19 23:00 37.4 C 88 16 123/83 96 PG Care Time/CCT Total # of Minutes Spent Total Time Spent with Patient: Total time spent is greater than 50% in coordination of care (as documented) at patient's floor/unit and/or counseling patient: Coding Level of Care Code 70404 Subseq Hosp Care Lvl 3 Diagnoses SBO (small bowel obstruction) K56.609 Migraine G43.909 Intractability: not intractable Migraine type: unspecified Status migrainosus presence: without status migrainosus Anxiety and depression F41.9; F32.9 Chronic diarrhea K52.9 Hypokalemia E87.6 Hypophosphatemia E83.39 Hypomagnesemia E83.42 DVT prophylaxis Z29.9 (1) Migraine Intractability: not intractable Migraine type: unspecified Status migrainosus presence: without status migrainosus Qualified Code(s): G43.909 - Migraine, unspecified, not intractable, without status migrainosus
[2019-09-25] MEDS: FLUTICASONE PROPIONATE NA SPR 16 GM BTL SCH (09:40)
--- NOTE | 2019-09-25 09:53 | XRay Report ---
XR KUB/Abdomen 1 view CLINICAL HISTORY: 39 years-old Female presenting with s/p dx lap for sbo. TECHNIQUE: Single supine view of the abdomen was obtained. COMPARISON: 10/11/2019. FINDINGS: Persistent dilated loops of small bowel with a stacked configuration and an apparent diameter of over 4 cm though this may be affected by magnification. This appears stable to minimally improved from pr ior. Residual oral contrast noted in the large bowel, which has slightly progressed from prior. No gr oss pneumoperitoneum allowing for supine technique. Cholecystectomy clips noted. Calcification projects over the left kidney, which correlates with the parenchymal calcification evid ent on CT. Osseous structures normal. IMPRESSION: 1. Stable to minimal improvement in the small bowel obstructive pattern. ACT 112: Negative or not required by law. Electronically signed by: Sherman Vasquez M.D. 09/25/2019 9:51 AM
[2019-09-25] MEDS: ENOXAPARIN INJ 40 MG/0.4 ML SYR SQ SCH (09:56)
[2019-09-25] MEDS: ONDANSETRON INJ 2 MG/ML 2 ML VIAL IV PRN (19:20)
[2019-09-25] MEDS ORDERED: PROMETHAZINE HCL 12.5 MG in SODIUM CHLORIDE 0.9% 50 ML IV STA (20:40)
[2019-09-26] MEDS: SODIUM CHLORIDE 0.9% 1000ML 1,000 ML IV SCH ×2 (04:44→12:41)
[2019-09-26 06:00] LABS: Basophils # (auto) 0.02 K/uL (0-0.2); Basophils % (auto) 0.3 %; Eosinophils # (auto) 0.17 K/uL (0-0.5); Hematocrit (blood only) 32.6 % (37-47); Hemoglobin 11.4 g/dL (12.0-16.0); Immature Granulocytes # (auto) 0.01 K/uL (0.00-0.02); Immature Granulocytes % (auto) 0.2 %; Lymphocytes # (auto) 1.63 K/uL (1.2-3.4); Lymphocytes % (auto) 28.4 %; Mean Corpuscular Volume 91.6 fL (80-100); Monocytes # (auto) 0.76 K/uL (0.11-0.59); Monocytes % (auto) 13.2 %; Neutrophils # (auto) 3.15 K/uL (1.4-6.5); Neutrophils % (auto) 54.9 %; Platelet Count 201 K/uL (130-400); RDW Coefficient of Variation 12.9 % (11.5-14.5); RDW Standard Deviation 42.6 fL (36.4-46.3); Red Blood Count 3.56 M/uL (4.2-5.4); White Blood Count 5.74 K/uL (4.8-10.8)
[2019-09-26] MEDS ORDERED: PROMETHAZINE HCL 12.5 MG in SODIUM CHLORIDE 0.9% 50 ML IV PRN ×2 (06:15→06:16)
[2019-09-26 06:37] LABS: Albumin Level 2.4 gm/dl (3.4-5.0); BUN Creatinine Ratio 6.2 (10-20); Creatinine Clr Calc Pharmacy 137.8 ml/min; Est GFR (African American) 135.7; Est GFR (Non-African American) 117.1; Potassium 3.3 mmol/L (3.5-5.1)
[2019-09-26 06:39] LABS: Albumin Globulin Ratio 0.9 (0.9-2); Bilirubin,Total 0.4 mg/dl (0.2-1); Globulin 2.7 gm/dl (2.5-4.0); Total Protein 5.1 gm/dl (6.4-8.2)
--- NOTE | 2019-09-26 07:33 | Hospitalist Progress Note ---
Date of Service September 26, 2019 Assessment & Plan (1) SBO (small bowel obstruction): Patient is slowly improving. She is tolerating clear liquids at this point but feels very bloated, even though passing gas. Recommended bowel rest. Has a h/o previous cholecystectomy (which she was told had a lot of adhesions intraoperatively), as well as one Had continued issues with functioning of NGT-repositioned twice, but continued to vomit at times with tube in place and had significant pain requiring IV morphine, no flatus or BM in many days -SBFT unable to be completed due to continuous vomiting during attempt to get test -KUB remained with SBO but improving Finally went for laparoscopic surgery and found to have kinking of small bowel stuck on itself -released by Surgery and no other abnormalities found during surgery on 09/21/19 On 09/23--> passing some small BMs, one episode of flatus, but with continued pain, nausea, bloating--> remains with ileus, KUB with distended small bowel but with stool now in rectum and contrast throughout from previous attempt at SBFT -Continue frequent ambulation -bisacodyl suppos NE x 1 today-discussed with Surgery -continue morphine prn pain but advised her to try to space this out more as this is contributing to ileus -dc toradol as is causing rebound migraine -continue IV tylenol prn -NGT now discontinued -advanced to clears today as tolerated -continue IV pepcid for gastric protection -cont IVFs D51/2 NS with KCl 20 meq -replace lytes-gave IV KCl, Phos, Mag again today -appreciate Surgery consultation and management -follow BMP, Mag, Phos -Keep n.p.o. for now, advance diet as tolerated. -await improvement in symptoms and continued improvement in bowel function/ileus (2) Migraine: PO meds held due to NPO continues to be having a migraine headache today Continue PRN sub-q Imitrex. -dc toradol due to rebound -continue IV tylenol prn -add on IV COMpazine prn (3) Anxiety and depression: Sertraline held due to NPO (4) Chronic diarrhea: Cholestyramine held due to NPO. Patient started that she needs cholestyramine with liquids. Restarted cholestyramine and patient advised to take it only if she eats. (5) Hypokalemia: Replace again Normally is on chlorthalidone for kidney stones and this causes hypokalemia Now just secondary to poor po intake -continue IVFs with KCl -replace with Potassium IV today -follow BMP (6) Hypophosphatemia: Resolved (7) Hypomagnesemia: Resolved (8) DVT prophylaxis: Lovenox SQ Dispo-remain hospitalized Subjective . Patient seen and examined at the bedside.She is slowly improving , still and states that she still feels bloated even though she is passing gas. Her abdominal pain is improved. She states that she tolerates some ice cream and [place] ice, but she would feel better if she takes her cholestyramine with it. Be recommended her n.p.o. and bowel rest. Advance diet as tolerated. Patient denies fever, chills, chest pain, shortness of breath, abdominal pain, frequency, urgency. Review of Systems Review of Systems: All systems reviewed & are unremarkable except as noted in HPI & below Physical Exam Constitutional: WD/WN, vitals as above + obese Eyes: + anicteric sclerae ENMT: Mouth: no TMJ abnormality Mallampati Class: II Neck: trachea midline, no thyromegaly normal visual inspection Respiratory: normal respiratory effort, lungs clear to auscultation normal respiratory effort Auscultation: lungs clear to auscultation bilaterally Cardiovascular: RRR, no murmur, no edema Rate/Rhythm: regular rate and regular rhythm Chest (Breasts): Chest: normal inspection of chest Gastrointestinal (Abdomen): Inspection/Auscultation: + abdomen distended (minimal), normal bowel sounds (much more active BS today, NOT high pitched) and + hypoactive bowel sounds; + abdomen abnormal to inspection (incisions laparoscopic with Dermabond in place) Percussion/Palpation: + abdomen tender (mild,mid abdomen, no guarding or rebound) and abdomen soft; no guarding and abdomen not rigid Musculoskeletal: no cyanosis or clubbing, extremities motor strength 5/5 He ad/Neck/Chest: normocephalic and head atraumatic Spine: normal cervical ROM Extremities: extremities normal to inspection; no cyanosis and no clubbing Gait: + abnormal gait Skin: no rashes, warm and dry Neurologic: moves all extremities and awake; no focal motor deficits Psychiatric: A+Ox3, euthymic affect Orientation: alert and oriented x 3 Affect: + flat affect Lymphatic: no lymphedema Results & Data ([facility]) Vital Signs (Past 12 Hours) Vital Signs Temp Pulse Resp BP Pulse Ox 09/26/19 06:36 36.9 C 73 16 128/87 97 09/25/19 22:59 36.9 C 58 L 16 117/71 94 PG Care Time/CCT Total # of Minutes Spent Total Time Spent with Patient: Total time spent is greater than 50% in coordination of care (as documented) at patient's floor/unit and/or counseling patient: Coding Level of Care Code 59902 Subseq Hosp Care Lvl 3 Diagnoses SBO (small bowel obstruction) K56.609 Migraine G43.909 Intractability: not intractable Migraine type: unspecified Status migrainosus presence: without status migrainosus Anxiety and depression F41.9; F32.9 Chronic diarrhea K52.9 Hypokalemia E87.6 Hypophosphatemia E83.39 Hypomagnesemia E83.42 DVT prophylaxis Z29.9 (1) Migraine Intractability: not intractable Migraine type: unspecified Status migrainosus presence: without status migrainosus Qualified Code(s): G43.909 - Migraine, unspecified, not intractable, without status migrainosus
[2019-09-26] MEDS: FLUTICASONE PROPIONATE NA SPR 16 GM BTL SCH (08:39)
[2019-09-26] MEDS: FAMOTIDINE 20 MG in SYRINGE 3 ML IV SCH ×2 (08:40→20:39)
[2019-09-26] MEDS ORDERED: COLESTIPOL HCL 1 GM TAB PO SCH (09:15)
--- NOTE | 2019-09-26 09:41 | Surgery Progress Note ---
Date of Service September 26, 2019 Assessment & Plan (1) Small bowel obstruction: POD#5 diagnostic laparoscopy - pt had an episode of emesis and pain late in the day yesterday, but after receiving phenergan she is feeling much better and has been able to tolerate some liquids this AM for breakfast - patient continues to have + bowel function, passing flatus and BMs - recommended we could try some reglan to see if this helps improve her symptoms - would stick with liquids for now and will re-evaluate later today as above. feeling better today. states no nausea today, multiple bm's...and is finally starting to have some appetite. stay on clears but she can have some cracker/toast which she requested. if no issues overnight can try some "real food" tomorrow. Subjective Patient feeling well this AM. Late last night she did have an episode of emesis and abdominal pain. After being offered phenergan she has been feeling much better and was able to tolerate some liquids without issue for breakfast. She is still passing flatus and having BMs. Physical Exam Physical Exam: awake/alert Constitutional: no acute distress Gastrointestinal (Abdomen): Inspection/Auscultation: + abdomen distended (mild) and + abdominal surgical incision (c/d/i with dermabond overtop) Percussion/Palpation: abdomen soft; abdomen nontender Results & Data Vital Signs (Past 12 Hours) Vital Signs Temp Pulse Resp BP Pulse Ox 09/26/19 06:36 36.9 C 73 16 128/87 97 09/25/19 22:59 36.9 C 58 L 16 117/71 94 PG Care Time/CCT Total # of Minutes Spent Total Time Spent with Patient: Total time spent is greater than 50% in coordination of care (as documented) at patient's floor/unit and/or counseling patient: Coding Level of Care Code 74888 Subseq Hosp Care Lvl 1 Diagnoses Small bowel obstruction K56.609
[2019-09-26] MEDS: CHOLESTYRAMINE LIGHT 4 GM PKT PO PRN (09:59)
[2019-09-26] MEDS: ENOXAPARIN INJ 40 MG/0.4 ML SYR SQ SCH (09:59)
[2019-09-26] MEDS ORDERED: METOCLOPRAMIDE HCL 5 MG TABLET PO SCH (12:00)
[2019-09-26] MEDS: POTASSIUM CHLORIDE 40 MEQ in SODIUM CHLORIDE 0.9% 1000ML 1,000 ML IV SCH (16:15)
[2019-09-27] MEDS: POTASSIUM CHLORIDE 40 MEQ in SODIUM CHLORIDE 0.9% 1000ML 1,000 ML IV SCH (05:37)
[2019-09-27 06:55] LABS: Basophils # (auto) 0.05 K/uL (0-0.2); Eosinophils # (auto) 0.15 K/uL (0-0.5); Eosinophils % (auto) 2.9 %; Hematocrit (blood only) 31.7 % (37-47); Hemoglobin 11.3 g/dL (12.0-16.0); Immature Granulocytes # (auto) 0.01 K/uL (0.00-0.02); Immature Granulocytes % (auto) 0.2 %; Lymphocytes # (auto) 1.53 K/uL (1.2-3.4); Lymphocytes % (auto) 29.8 %; Mean Corpuscular Hemoglobin 31.7 pg (25-34); Mean Corpuscular Hgb Conc 35.6 g/dL (32-36); Mean Corpuscular Volume 88.8 fL (80-100); Mean Platelet Volume 9.7 fL (7.4-10.4); Monocytes # (auto) 0.52 K/uL (0.11-0.59); Monocytes % (auto) 10.1 %; Neutrophils # (auto) 2.88 K/uL (1.4-6.5); Platelet Count 248 K/uL (130-400); RDW Coefficient of Variation 12.9 % (11.5-14.5); RDW Standard Deviation 41.6 fL (36.4-46.3); Red Blood Count 3.57 M/uL (4.2-5.4); White Blood Count 5.14 K/uL (4.8-10.8)
[2019-09-27 07:23] LABS: Albumin Level 2.4 gm/dl (3.4-5.0); BUN Creatinine Ratio 2.3 (10-20); Calcium 8.1 mg/dl (8.5-10.1); Creatinine Clr Calc Pharmacy 133.2 ml/min; Est GFR (African American) 134.2; Est GFR (Non-African American) 115.8; Potassium 3.3 mmol/L (3.5-5.1)
[2019-09-27 07:26] LABS: Albumin Globulin Ratio 0.9 (0.9-2); Bilirubin,Total 0.3 mg/dl (0.2-1); Globulin 2.6 gm/dl (2.5-4.0)
--- NOTE | 2019-09-27 07:47 | Surgery Progress Note ---
Date of Service September 27, 2019 Assessment & Plan (1) Small bowel obstruction: POD#6 diagnostic laparoscopy patient making progress over the past couple of days continues to have + bowel function yesterday she tolerated a liquid diet and some toast/crackers without nausea/vomiting okay to advance to a low fiber diet today as above. still having bowel fx. no n/v past 24 hours. starting to feel hungry. would like "regular" food. will increase diet. possible d/c tomorrow if she does well next 24 hours. Subjective Patient complaining of a migraine this AM. From an abdominal standpoint she has some gas pains, but she continues to pass flatus and have BM's. She tolerated liquids with some toast/crackers yesterday without issue. She says her nausea has subsided and appetite is returning. Physical Exam Physical Exam: awake/alert Constitutional: well developed and well nourished; no acute distress Gastrointestinal (Abdomen): Inspection/Auscultation: + abdomen distended (mild) Percussion/Palpation: abdomen soft; abdomen nontender Results & Data Vital Signs (Past 12 Hours) Vital Signs Temp Pulse Resp BP Pulse Ox 09/26/19 22:57 37.2 C 61 16 116/70 96 PG Care Time/CCT Total # of Minutes Spent Total Time Spent with Patient: Total time spent is greater than 50% in coordination of care (as documented) at patient's floor/unit and/or counseling patient: Coding Level of Care Code None Diagnoses Small bowel obstruction K56.609
[2019-09-27] MEDS: SUMAtriptan succinate 6 MG/0.5 ML VIAL SQ PRN (07:48)
[2019-09-27] MEDS: FLUTICASONE PROPIONATE NA SPR 16 GM BTL SCH (09:38)
[2019-09-27] MEDS: FAMOTIDINE 20 MG in SYRINGE 3 ML IV SCH ×2 (09:39→20:30)
[2019-09-27] MEDS: ENOXAPARIN INJ 40 MG/0.4 ML SYR SQ SCH (09:39)
[2019-09-27] MEDS: CHOLESTYRAMINE LIGHT 4 GM PKT PO PRN (10:42)
[2019-09-27] MEDS ORDERED: SIMETHICONE 40 MG/0.6 ML 30ML PO PRN (11:42)
[2019-09-27] MEDS ORDERED: SIMETHICONE 40 MG/0.6 ML 30ML PO STA (11:45)
[2019-09-27] MEDS: ONDANSETRON INJ 2 MG/ML 2 ML VIAL IV PRN (12:10)
--- NOTE | 2019-09-27 14:04 | Hospitalist Progress Note ---
Date of Service September 27, 2019 Assessment & Plan (1) SBO (small bowel obstruction): Patient is slowly improving. She tolerated advanced diet this AM, but continues to have bloating and gas pains--passing gas and diarrhea now Has a h/o previous cholecystectomy (which she was told had a lot of adhesions intraoperatively), as well as one Had continued issues with functioning of NGT-repositioned twice, but continued to vomit at times with tube in place and had significant pain requiring IV morphine, no flatus or BM in many days -SBFT unable to be completed due to continuous vomiting during attempt to get test -KUB remained with SBO but improving Finally went for laparoscopic surgery and found to have kinking of small bowel stuck on itself -released by Surgery and no other abnormalities found during surgery on 09/21/19 Multiple KUB, most recent on 09/25 with improved SBO -Continue frequent ambulation -bisacodyl suppos [place] x 1 today-discussed with Surgery -continue morphine prn pain but advised her to try to space this out more as this is contributing to ileus -dc toradol as is causing rebound migraine -continue IV tylenol prn -NGT now discontinued -continue IV pepcid for gastric protection -cont IVFs D51/2 NS with KCl 20 meq -replace lytes-gave IV KCl, Phos, Mag again today -appreciate Surgery consultation and management -follow BMP Mag Phos (2) Migraine: PO meds held due to NPO Continue PRN sub-q Imitrex. -dc toradol due to rebound -continue IV tylenol prn -add on IV COMpazine prn (3) Anxiety and depression: Sertraline held due to NPO (4) Chronic diarrhea: Cholestyramine resumed Patient started that she needs cholestyramine with PO (5) Hypokalemia: Replace again Normally is on chlorthalidone for kidney stones and this causes hypokalemia Now just secondary to poor po intake -continue IVFs with KCl -replace with Potassium IV today -follow BMP (6) Hypophosphatemia: Resolved (7) Hypomagnesemia: Resolved (8) DVT prophylaxis: Lovenox SQ Dispo-remain hospitalized Subjective Pt feels better than [employer], however she is having increased gas today. She feels distended. She did have her first "real" meal this AM and it was after this that she felt more bloated and "gas pains". No pain similar to [employer]. Pt denies fever, SOB, chest pain, n/v, LE pain or swelling. She did have diarrhea x2 today, but this was after eating without her cholestyramine, which is usual for her if she does not take this prior to PO. Pt had a migraine earlier today but it resolved with imitrex. Review of Systems Review of Systems: Pertinent positives and negatives reviewed in HPI--all others negative Physical Exam Constitutional: WD/WN, vitals as above Eyes: normal visual serrano by confrontation and + anicteric sclerae Neck: normal visual inspection and trachea midline Respiratory: normal respiratory effort, lungs clear to auscultation Cardiovascular: Rate/Rhythm: regular rate and regular rhythm Gastrointestinal (Abdomen): Inspection/Auscultation: + abdomen distended Percussion/Palpation: abdomen soft Musculoskeletal: Head/Neck/Chest: normocephalic and head atraumatic negative for edema, peripheral pulses intact Skin: no rashes, warm and dry Neurologic: awake; not confused Speech / Cognition: normal speech Psychiatric: A+Ox3, euthymic affect Results & Data ([facility]) Vital Signs (Past 12 Hours) Vital Signs Temp Pulse Resp BP BP Pulse Ox 09/27/19 11:01 36.5 C 70 16 134/90 98 09/27/19 07:40 36.9 C 66 16 142/82 H 97 PG Care Time/CCT Total # of Minutes Spent Total Time Spent with Patient: Total time spent is greater than 50% in coordination of care (as documented) at patient's floor/unit and/or counseling patient: Coding Level of Care Code 19546 Subseq Hosp Care Lvl 3 Diagnoses SBO (small bowel obstruction) K56.609 Migraine G43.909 Migraine type: unspecified Status migrainosus presence: without status migrainosus Intractability: not intractable Anxiety and depression F41.9; F32.9 Chronic diarrhea K52.9 Hypokalemia E87.6 Hypophosphatemia E83.39 Hypomagnesemia E83.42 DVT prophylaxis Z29.9 (1) Migraine Migraine type: unspecified Status migrainosus presence: without status migrainosus Intractability: not intractable Qualified Code(s): G43.909 - Migraine, unspecified, not intractable, without status migrainosus
[2019-09-27] MEDS ORDERED: LORazepam 0.5 MG/1 ML VIAL IV STA (20:09)
[2019-09-28 05:40] LABS: Basophils # (auto) 0.03 K/uL (0-0.2); Basophils % (auto) 0.5 %; Eosinophils # (auto) 0.21 K/uL (0-0.5); Eosinophils % (auto) 3.8 %; Hematocrit (blood only) 32.2 % (37-47); Hemoglobin 11.5 g/dL (12.0-16.0); Immature Granulocytes # (auto) 0.01 K/uL (0.00-0.02); Immature Granulocytes % (auto) 0.2 %; Lymphocytes # (auto) 2.01 K/uL (1.2-3.4); Lymphocytes % (auto) 36.4 %; Mean Corpuscular Hgb Conc 35.7 g/dL (32-36); Mean Corpuscular Volume 89.7 fL (80-100); Mean Platelet Volume 9.4 fL (7.4-10.4); Monocytes # (auto) 0.62 K/uL (0.11-0.59); Monocytes % (auto) 11.2 %; Neutrophils # (auto) 2.64 K/uL (1.4-6.5); Neutrophils % (auto) 47.9 %; Platelet Count 238 K/uL (130-400); RDW Standard Deviation 42.3 fL (36.4-46.3); Red Blood Count 3.59 M/uL (4.2-5.4); White Blood Count 5.52 K/uL (4.8-10.8)
[2019-09-28 06:10] LABS: Alanine Aminotransferase 33 U/L (12-78); Albumin Level 2.4 gm/dl (3.4-5.0); Aspartate Aminotransferase 17 U/L (15-37); Blood Urea Nitrogen < 1 mg/dl (7-18); Calcium 8.3 mg/dl (8.5-10.1); Carbon Dioxide 27 mmol/L (21-32); Chloride 112 mmol/L (98-107); Creatinine Clr Calc Pharmacy 117.8 ml/min; Est GFR (African American) 128.9; Est GFR (Non-African American) 111.2; Glucose 95 mg/dl (70-99); Potassium 3.6 mmol/L (3.5-5.1); Sodium 143 mmol/L (136-145)
[2019-09-28 06:12] LABS: Albumin Globulin Ratio 0.9 (0.9-2); Alkaline Phosphatase 77 U/L (45-117); Bilirubin,Total 0.3 mg/dl (0.2-1); Globulin 2.6 gm/dl (2.5-4.0)
--- NOTE | 2019-09-28 08:14 | Surgery Progress Note ---
Date of Service September 28, 2019 Assessment & Plan (1) Small bowel obstruction: POD#7 diagnostic laparoscopy - Patient tolerating small amounts of regular diet. Had a set back yesterday evening with an increase in abdominal symptoms but is feeling much better this morning. This AM she is passing more flatus and had a more formed BM. - Okay to continue a regular diet for now as tolerates - Will order a KUB for further evaluation - Will reassess later today as above. feeling much better and would like to go home. large bm earlier this am. donis eggs/toast for breakfast. no nausea. xray still with some dilated bowel but improving. discussed light diet/plenty of fluids at home. f/u with me in 1 week. Subjective Patient says she had a rough afternoon and evening yesterday, stating she had increased gas pains, felt full, and was unable to pass gas. She says she was given some ativan later in the day that helped her to sleep and relieve her symptoms. Yesterday she ate small amounts at each meal; scrambled eggs + 1/2 piece toast; 2-3 bites of chicken breast; and for dinner some bites of roast beef with veggies. She has no episodes of vomiting >48hours. This AM she reports feeling better and is again passing flatus and had a more formed BM. She says she has an appetite this AM. Physical Exam Physical Exam: awake/alert Gastrointestinal (Abdomen): Inspection/Auscultation: + abdomen distended (improved) and + abdominal surgical incision (c/d/i) Percussion/Palpation: abdomen soft; abdomen nontender Results & Data Vital Signs (Past 12 Hours) Vital Signs Temp Pulse Pulse Resp BP BP Pulse Ox 09/28/19 07:48 36.9 C 71 16 118/84 97 09/27/19 23:02 37.1 C 62 16 120/78 95 PG Care Time/CCT Total # of Minutes Spent Total Time Spent with Patient: Total time spent is greater than 50% in coordination of care (as documented) at patient's floor/unit and/or counseling patient: Coding Level of Care Code None Diagnoses Small bowel obstruction K56.609
[2019-09-28] MEDS: FLUTICASONE PROPIONATE NA SPR 16 GM BTL SCH (09:05)
[2019-09-28] MEDS: ENOXAPARIN INJ 40 MG/0.4 ML SYR SQ SCH (09:05)
--- NOTE | 2019-09-28 09:41 | XRay Report ---
KUB HISTORY: Small bowel obstruction. Follow-up. COMPARISON: KUB 09/25/2019. FINDINGS: Mildly dilated gas-filled loops of small bowel are again noted throughout the abdomen. Thes e have slightly improved in the interval. These measure up to 3.8 cm in diameter. There is gas and st ool within the colon. Prior cholecystectomy. Left upper quadrant calcification remains unchanged. No renal calculi. No ureteral calculi. No pneumoperitoneum or pneumatosis. IMPRESSION: Slight improvement in the dilated loops of small bowel compared to the prior study. This favors a res olving obstruction or ileus. ACT 112: Negative or not required by law. Electronically signed by: Matias Jessica M.D. 09/28/2019 9:40 AM
[2019-09-28] MEDS: FAMOTIDINE 20 MG in SYRINGE 3 ML IV SCH (10:15)
--- NOTE | 2019-09-28 13:07 | Discharge Summary ---
Date of Service September 28, 2019 Principal Diagnosis Pt is feeling much improved. After having ativan yesterday, she felt that her gas was much easier to pass. She feels she was just too anxious to pass gas or stool. She has had 4 solid bowel movements today. She ate more than yesterday. Gas pains are much improved. She would like to go home. Pt denies fever, SOB, chest pain, n/v/c/d, LE pain or swelling. Discharge Exam Constitutional WD/WN, vitals as above Eyes normal visual serrano by confrontation and + anicteric sclerae Neck normal visual inspection and trachea midline Respiratory normal respiratory effort, lungs clear to auscultation Cardiovascular Rate/Rhythm: regular rate and regular rhythm Gastrointestinal (Abdomen) Inspection/Auscultation: + abdomen distended (improved) Percussion/Palpation: abdomen soft Musculoskeletal Head/Neck/Chest: normocephalic and head atraumatic Skin no rashes, warm and dry Neurologic awake; not confused Speech / Cognition: normal speech Psychiatric A+Ox3, euthymic affect Discharge Data Allergies Allergy/AdvReac Type Severity Reaction Status Date / Time No Known Allergies Allergy Verified 09/18/19 23:02 Consultations 09/18/19 23:27 ED Decision to Admit Stat 09/19/19 01:14 Consult General Surgery Routine Procedures Performed Operation Date: 09/21/19 07:30 Actual Procedures p Diagnostic Laparoscopy, release of Small Bowel Obstruction(Not Applicable) - Aneudy Ferreira, DO Ordered Studies 09/18/19 21:42 CT abd pelvis IV con only Stat 09/20/19 09:25 FL small bowel study Routine Hospital Course (1) SBO (small bowel obstruction): Failed conservative management, ex lap with SBO release on 09/21/[address] Ferreira Patient with slow improvement, but now tolerating PO without much issue, passing gas and stool regularly -KUB remained with SBO but continues to appear improved Pt with further bowel movements s/p KUB on DOD (2) Migraine: migraines with PRN imitrex during admission (3) Anxiety and depression: continue home meds Pt felt that ativan helped her bowel functioning as shortly after administration she had increased passage of gas and bowel movement Pt feels she was so anxious that she was tensing her abd and causing discomfort Given 3 ativan tabs on d/c for above at pt request (4) Chronic diarrhea: Cholestyramine resumed Patient states that she needs cholestyramine with PO (5) Hypokalemia: WNL on d/c Normally is on chlorthalidone for kidney stones and this causes hypokalemia (6) Hypophosphatemia: Resolved (7) Hypomagnesemia: Resolved (8) DVT prophylaxis: Lovenox SQ Dispo-remain hospitalized Total Time Total Time Spent Total Time Spent (In Minutes): >30 Total Time Includes: Examination of the Patient, Discharge Planning, Medication Reconciliation, Communication With Other Providers and Other Discharge Plan Discharge Items Patient Disposition: Home - Self-Care Reason For Visit: SBO Discharge Diagnosis: laparoscopy Activity: As commented below Lifting: No more than 10 pounds Bathing Comment: may shower Driving/Machine Use: Resume 3 days after discharge Non-emergency contact: Surgeon Call non-emergency contact if: you have any medication questions, your pain is not controlled, you have a fever, your temperature is above 101.5 and your wound has increased redness Follow-up/Referrals: Chantel Perez DO [Primary Care Provider] - 10/02/19 3:15 pm (Please, follow up at [facility] [place] Office with Dr. Perez's associate, Sangeeta Woods PA-C, on TuesdayOctober 02 at 3:15 pm. 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 on CT--f/u PCP Pending Studies at Discharge: No Stand-Alone Forms: Call Back Authorization, My [facility], Opioid Pain Management, Smoking Cessation Medications and DC Order Prescriptions: New hydrocodone-acetaminophen [[place]] 5-325 mg tablet 1 - 2 tab PO Q4H PRN (Reason: pain, initial therapy, max 8 tabs daily) Qty: 15 RF: 0 alprazolam 0.5 mg tablet 0.5 mg PO DAILY Qty: 3 RF: 0 Continued loratadine [Claritin] 10 mg tablet 10 mg PO DAILY Qty: 30 RF: 5 fluticasone propionate [Flonase Allergy Relief] 50 mcg/actuation spray,suspension 1 sprays INTNAS DAILY Qty: 9.9 RF: 2 sertraline [Zoloft] 50 mg tablet 50 mg PO DAILY Qty: 30 RF: 5 prenat.vits,nithin,hjl-ppka-niwbx tablet 1 tab PO DAILY Qty: 30 RF: 5 chlorthalidone 25 mg tablet 25 mg PO DAILY Qty: 30 RF: 2 potassium chloride 20 mEq tablet extended release 20 meq PO BID Qty: 60 RF: 2 sumatriptan succinate 6 mg/0.5 mL pen injector 6 mg SQ PRN Qty: 0.5 RF: 0 cholestyramine (with sugar) [Questran] 4 gram powder 4 gm PO DAILY Qty: 378 RF: 2 rizatriptan [Maxalt] 10 mg tablet 10 mg PO Q2H PRN (Reason: migraine headache) Qty: 30 RF: 0 ketoconazole 2 % shampoo 1 appln TOP ONCE Qty: 120 RF: 2 ketoconazole 2 % cream 1 appln TOP BID Qty: 60 RF: 2 Aimovig Autoinjector 70 mg/mL auto-injector 70 mg SUBCUT MONTHLY RF: 0 Discharge Orders: Discharge Order (Routine); Ordered 09/28/19 Ordered By: Brittney Granados/Other Patient Handouts: Diet Low Residue Admission Data Admit Date/Time: 09/19/19 00:12 Attending Provider: Brittney Banda Admit Provider: Emmanuel Xiao Primary Care Provider: Chantel Perez Other Providers: Emmanuel Xiao ; Aneudy Ferreira Other Interventions: Discharge Summary Assessment (RN) Last Done: 09/28/19 13:10 Coding Level of Care Code D/C Day Management >30 mins Diagnoses SBO (small bowel obstruction) K56.609 Migraine G43.909 Intractability: not intractable Migraine type: unspecified Status migrainosus presence: without status migrainosus Anxiety and depression F41.9; F32.9 Chronic diarrhea K52.9 Hypokalemia E87.6 Hypophosphatemia E83.39 Hypomagnesemia E83.42 DVT prophylaxis Z29.9
[2019-09-28] MEDS ORDERED: IBUPROFEN 600 MG TAB PO PRN (13:08)
--- NOTE | 2019-10-02 11:17 | Coding Query ---
Your help is needed for correct coding of this account; please clarify if the patients Ileus was: ( ) POSTOPERATIVE ( ) expected out of the surgery ( ) unexpected complication from the surgery (x )other please specify This is a surgical issue and should be directed toward the surgeon. ( ) OTHER ILEUS (please specify) ( ) UNSPECIFIED ILEUS Thank you Arely AARON
--- NOTE | 2019-10-02 13:52 | Coding Query ---
Your help is needed for correct coding of this account; please clarify if the patients Ileus was: ( ) POSTOPERATIVE (x ) expected out of the surgery ( ) unexpected complication from the surgery ( )other please specify ( ) OTHER ILEUS (please specify) ( ) UNSPECIFIED ILEUS Thank you Arely AARON
== END 2019-09-28 15:40 | disposition home or self-care (01) | DRG 336 ==
LOC: ED 19:25 → 3N 09-19 00:12 → SUATTDRO 09-19 00:12 → 3N 09-19 00:42